=== PATIENT | female | born 1930 | race American Indian/Alaskan Native ===

== ENCOUNTER 2018-11-27 11:47 | Inpatient (IN) | payer MEDICARE ==
--- NOTE | 2018-11-27 12:07 | Emergency Department Report ---
Blank Doc - Documentation Documentation: This is a 88 y.o. female that presents with SOB for a few days. PMH NSTEMI, H TN, DVT, and anemia. Ordered EKG, labs, and CXR. Main side for further evaluation.
[2018-11-27 12:35] LABS: Basophils # (Auto) 0.1 K/mm3 (0.0-0.1); Basophils % (Auto) 0.6 % (0.0-1.8); Eosinophils % (Auto) 0.3 % (0.0-4.3); Hematocrit 34.8 % (30.3-42.9); Hemoglobin 11.9 gm/dl (10.1-14.3); Lymphocytes # (Auto) 1.1 K/mm3 (1.2-5.4); Lymphocytes % (Auto) 10.9 % (13.4-35.0); Mean Corpuscular HGB Conc 34 % (30-34); Mean Corpuscular Volume 100 fl (79-97); Monocytes # (Auto) 1.1 K/mm3 (0.0-0.8); Monocytes % (Auto) 11.4 % (0.0-7.3); Red Blood Count 3.49 M/mm3 (3.65-5.03); Red Cell Distribution Width 13.5 % (13.2-15.2)
[2018-11-27 12:57] LABS: BUN/Creatinine Ratio 14; Blood Urea Nitrogen 13 mg/dL (7-17); Calcium 8.8 mg/dL (8.4-10.2); Hemolysis Index 38
--- NOTE | 2018-11-27 13:28 | XRay Report ---
CHEST XRAY, 2 VIEWS: History: Shortness of breath. Findings: There is mild cardiomegaly. Pulmonary vessels are within normal limits. The lungs are clear and fully expanded. No infiltrate, pleural effusion or pneumothorax. The bony structures are mildly demineralized but grossly intact. IMPRESSION: Mild cardiomegaly.
[2018-11-27] MEDS ORDERED: NACL 0.9% 500 ML 500 ML IV ONE (14:40)
[2018-11-27] MEDS ORDERED: MAXIPIME/NS 1 GM/100 ML 1 GM/100 ML BAG IV ONE (14:42)
--- NOTE | 2018-11-27 14:49 | Emergency Department Report ---
ED General Adult HPI - General Chief complaint: Dyspnea/Respdistress Stated complaint: SOB Time Seen by Provider: 11/27/18 12:06 Source: patient, family Mode of arrival: Ambulatory Limitations: No Limitations - History of Present Illness Initial comments: Patient presents to the ED from her PCP for SOB that started 2 days ago. The patient denies any pain. Patient does complain of a cough. She denies chest pain, abdominal pain, headache. Patient states she's never had shortness of breath before -: Sudden Radiation: non-radiation Severity scale (0 -10): 0 Consistency: constant Improves with: none Worsens with: none Associated Symptoms: denies other symptoms Treatments Prior to Arrival: none - Related Data Home Medications Medication Instructions Recorded Confirmed Last Taken Omeprazole 1 cap PO DAILY 08/04/14 08/07/14 08/06/14 10:00 Previous Rx's Medication Instructions Recorded Last Taken Type Aspirin [Aspirin TAB] 325 mg PO QDAY #30 tablet 04/08/15 Unknown Rx AtorvaSTATin [Lipitor] 20 mg PO QHS #30 tablet 04/08/15 Unknown Rx Citalopram [celeXA] 10 mg PO DAILY #30 tablet 04/08/15 Unknown Rx Clopidogrel [Plavix] 75 mg PO QDAY #30 tablet 04/08/15 Unknown Rx Lisinopril [Zestril TAB] 20 mg PO QDAY #30 tablet 04/08/15 Unknown Rx Metoprolol [Lopressor TAB] 25 mg PO BID #60 tablet 04/08/15 Unknown Rx Allergies Allergy/AdvReac Type Severity Reaction Status Date / Time No Known Allergies Allergy Verified 08/04/14 12:40 ED Review of Systems ROS: Stated complaint: SOB Other details as noted in HPI Comment: All other systems reviewed and negative Constitutional: denies: chills, fever Eyes: denies: eye pain, eye discharge, vision change ENT: denies: ear pain, throat pain Respiratory: shortness of breath. denies: cough, wheezing Cardiovascular: denies: chest pain, palpitations Endocrine: no symptoms reported Gastrointestinal: denies: abdominal pain, nausea, diarrhea Genitourinary: denies: urgency, dysuria, discharge Musculoskeletal: denies: back pain, joint swelling, arthralgia Skin: denies: rash, lesions Neurological: denies: headache, weakness, paresthesias Psychiatric: denies: anxiety, depression Hematological/Lymphatic: denies: easy bleeding, easy bruising ED Past Medical Hx - Past Medical History Hx Hypertension: Yes (40YRS, took lisinipril and maxzide this am) Hx Heart Attack/AMI: No Hx GERD: Yes Hx Renal Disease: No Hx Arthritis: Yes Hx Seizures: No Hx Asthma: No Hx COPD: No Hx Tuberculosis: No Hx HIV: No - Social History Smoking Status: Never Smoker Substance Use Type: None - Medications Home Medications: Home Medications Medication Instructions Recorded Confirmed Last Taken Type Omeprazole 1 cap PO DAILY 08/04/14 08/07/14 08/06/14 10:00 History Aspirin [Aspirin TAB] 325 mg PO QDAY #30 tablet 04/08/15 Unknown Rx AtorvaSTATin [Lipitor] 20 mg PO QHS #30 tablet 04/08/15 Unknown Rx Citalopram [celeXA] 10 mg PO DAILY #30 tablet 04/08/15 Unknown Rx Clopidogrel [Plavix] 75 mg PO QDAY #30 tablet 04/08/15 Unknown Rx Lisinopril [Zestril TAB] 20 mg PO QDAY #30 tablet 04/08/15 Unknown Rx Metoprolol [Lopressor TAB] 25 mg PO BID #60 tablet 04/08/15 Unknown Rx ED Physical Exam - General Limitations: No Limitations General appearance: alert, in no apparent distress - Head Head exam: Present: atraumatic, normocephalic - Eye Eye exam: Present: normal appearance, PERRL, EOMI - ENT ENT exam: Present: mucous membranes moist - Neck Neck exam: Present: normal inspection - Respiratory Respiratory exam: Present: normal lung sounds bilaterally. Absent: respiratory distress, wheezes, rales, rhonchi - Cardiovascular Cardiovascular Exam: Present: normal rhythm, tachycardia. Absent: systolic murmur, diastolic murmur, rubs, gallop - GI/Abdominal GI/Abdominal exam: Present: soft, normal bowel sounds. Absent: distended, tenderness - Extremities Exam Extremities exam: Present: normal inspection - Back Exam Back exam: Present: normal inspection - Neurological Exam Neurological exam: Present: alert, oriented X3, CN II-XII intact. Absent: motor sensory deficit - Psychiatric Psychiatric exam: Present: normal affect, normal mood - Skin Skin exam: Present: warm, dry, intact, normal color. Absent: rash ED Course Vital Signs 03/02/1011/27/18 11/27/18 12:06 13:50 16:37 Temperature 98.7 F 102.5 F H 101.2 F H Pulse Rate 93 H 108 H Respiratory 24 29 H Rate Blood Pressure 146/67 Blood Pressure 188/74 [Left] O2 Sat by Pulse 95 100 Oximetry ED Medical Decision Making - Lab Data Result diagrams: 11/27/18 12:22 11/27/18 12:22 Lab Results 11/27/18 11/27/18 11/27/18 Range/Units 12:22 12:22 14:46 WBC 10.0 (4.5-11.0) K/mm3 RBC 3.49 L (3.65-5.03) M/mm3 Hgb 11.9 (10.1-14.3) gm/dl Hct 34.8 (30.3-42.9) % MCV 100 H (79-97) fl MCH 34 H (28-32) pg MCHC 34 (30-34) % RDW 13.5 (13.2-15.2) % Plt Count 252 (140-440) K/mm3 Lymph % (Auto) 10.9 L (13.4-35.0) % [place] % (Auto) 11.4 H (0.0-7.3) % Eos % (Auto) 0.3 (0.0-4.3) % Baso % (Auto) 0.6 (0.0-1.8) % Lymph # 1.1 L (1.2-5.4) K/mm3 [place] # 1.1 H (0.0-0.8) K/mm3 Eos # 0.0 (0.0-0.4) K/mm3 Baso # 0.1 (0.0-0.1) K/mm3 Seg Neutrophils % 76.8 H (40.0-70.0) % Seg Neutrophils # 7.7 (1.8-7.7) K/mm3 Sodium 141 (137-145) mmol/L Potassium 3.5 L (3.6-5.0) mmol/L Chloride 98.9 (98-107) mmol/L Carbon Dioxide 26 (22-30) mmol/L Anion Gap 20 mmol/L BUN 13 (7-17) mg/dL Creatinine 0.9 (0.7-1.2) mg/dL Estimated GFR > 60 ml/min BUN/Creatinine Ratio 14 % Glucose 112 H (65-100) mg/dL Lactic Acid 1.20 (0.7-2.0) mmol/L Calcium 8.8 (8.4-10.2) mg/dL Total Bilirubin (0.1-1.2) mg/dL Direct Bilirubin (0-0.2) mg/dL Indirect Bilirubin mg/dL AST (5-40) units/L ALT (7-56) units/L Alkaline Phosphatase (35-129) units/L Troponin T (0.00-0.029) ng/mL NT-Pro-B Natriuret Pep (0-900) pg/mL Total Protein (6.3-8.2) g/dL Albumin (3.9-5) g/dL Albumin/Globulin Ratio % Lipase (13-60) units/L /02/10 Range/Units 15:12 WBC (4.5-11.0) K/mm3 RBC (3.65-5.03) M/mm3 Hgb (10.1-14.3) gm/dl Hct (30.3-42.9) % MCV (79-97) fl MCH (28-32) pg MCHC (30-34) % RDW (13.2-15.2) % Plt Count (140-440) K/mm3 Lymph % (Auto) (13.4-35.0) % [place] % (Auto) (0.0-7.3) % Eos % (Auto) (0.0-4.3) % Baso % (Auto) (0.0-1.8) % Lymph # (1.2-5.4) K/mm3 [place] # (0.0-0.8) K/mm3 Eos # (0.0-0.4) K/mm3 Baso # (0.0-0.1) K/mm3 Seg Neutrophils % (40.0-70.0) % Seg Neutrophils # (1.8-7.7) K/mm3 Sodium (137-145) mmol/L Potassium (3.6-5.0) mmol/L Chloride (98-107) mmol/L Carbon Dioxide (22-30) mmol/L Anion Gap mmol/L BUN (7-17) mg/dL Creatinine (0.7-1.2) mg/dL Estimated GFR ml/min BUN/Creatinine Ratio % Glucose (65-100) mg/dL Lactic Acid (0.7-2.0) mmol/L Calcium (8.4-10.2) mg/dL Total Bilirubin 0.40 (0.1-1.2) mg/dL Direct Bilirubin < 0.2 (0-0.2) mg/dL Indirect Bilirubin 0.2 mg/dL AST 29 (5-40) units/L ALT 16 (7-56) units/L Alkaline Phosphatase 69 (35-129) units/L Troponin T < 0.010 (0.00-0.029) ng/mL NT-Pro-B Natriuret Pep 3120 H (0-900) pg/mL Total Protein 8.3 H (6.3-8.2) g/dL Albumin 4.2 (3.9-5) g/dL Albumin/Globulin Ratio 1.0 % Lipase 22 (13-60) units/L - EKG Data -: EKG Interpreted by Me EKG shows normal: sinus rhythm Rate: tachycardia - Radiology Data Radiology results: report reviewed - Medical Decision Making Patient states she was recently started on Lasix Discussed results with patient and plan of care Critical Care Time: Yes Critical care time in (mins) excluding proc time.: 45 Critical care attestation.: If time is entered above; I have spent that time in minutes in the direct care o f this critically ill patient, excluding procedure time. ED Disposition Clinical Impression: Dyspnea, CHF (congestive heart failure) Disposition: OP ADMIT IP TO THIS HOSP Is pt being admited?: Yes Does the pt Need Aspirin: Yes Condition: Stable Referrals: DA ORTIZ MD [Primary Care Provider] - 3-5 Days
[2018-11-27] MEDS ORDERED: TYLENOL PO ONE (14:50)
[2018-11-27 14:51] LABS: Platelet Count 252 K/mm3 (140-440)
[2018-11-27] MEDS ORDERED: TYLENOL ONE (14:51)
[2018-11-27 15:52] LABS: Alanine Aminotransferase 16 units/L (7-56); Albumin 4.2 g/dL (3.9-5); Bilirubin,Direct < 0.2 mg/dL (0-0.2)
[2018-11-27] MEDS ORDERED: LASIX IV ONE (17:01)
[2018-11-27] MEDS ORDERED: SODIUM CHLORIDE FLUSH SYRINGE 10 ML IV PRN (17:05)
[2018-11-27] MEDS ORDERED: PROVENTIL IH PRN (17:05)
[2018-11-27] MEDS ORDERED: ZOFRAN IV PRN (17:05)
--- NOTE | 2018-11-27 17:05 | History and Physical Report ---
History of Present Illness Chief complaint: Im short of breath History of present illness: 88 YO Female with Obesity, HTN, GERD, OA presents to ED for evaluation. Pt states that she has experienced shortness of breath over the past 2 days with persistent symptoms over the same time frame. Pt also acknowledges decreased exercise tolerance, Orthopnea/PND, dypsnea on exertion. Pt was seen by her PCP today was wa found to have pulse oximetry of 88% while on supplemental oxygen. Pt instructed to seek further care at [facility]. Pt transported to [facility] by family. Pt seen and evaluated in ED and found to have CHF, Acute Respiratory Failure, and SIRS. Pt found to have QSOFA score of 1. Pt admitted to telemetry, and initiated on empiric antibiotic therapy and initiated on CHF protocol. Cardiology consulted in ED. Pt denies fever, chills, CP, Palpitations, NVD, Trauma, Hemoptysis, BPBPR, prolonged travel/immobility, individual/family history of DVT/PE/Blood Clotting Disorders, Productive cough, or recent ill contacts. QSO FA Score:1 Past History Past Medical History: arthritis, GERD, hypertension, other (Obesity) Past Surgical History: No surgical history, Other (reviewed) Social history: . denies: smoking, alcohol abuse, prescription drug abuse Family history: hypertension Medications and Allergies Allergies Allergy/AdvReac Type Severity Reaction Status Date / Time No Known Allergies Allergy Verified 08/04/14 12:40 Home Medications Medication Instructions Recorded Confirmed Last Taken Type Omeprazole 1 cap PO DAILY 08/04/14 08/07/14 08/06/14 10:00 History Aspirin [Aspirin TAB] 325 mg PO QDAY #30 tablet 04/08/15 Unknown Rx AtorvaSTATin [Lipitor] 20 mg PO QHS #30 tablet 04/08/15 Unknown Rx Citalopram [celeXA] 10 mg PO DAILY #30 tablet 04/08/15 Unknown Rx Clopidogrel [Plavix] 75 mg PO QDAY #30 tablet 04/08/15 Unknown Rx Lisinopril [Zestril TAB] 20 mg PO QDAY #30 tablet 04/08/15 Unknown Rx Metoprolol [Lopressor TAB] 25 mg PO BID #60 tablet 04/08/15 Unknown Rx Review of Systems Constitutional: no weight loss, no weight gain, no fever, no chills Ears, nose, mouth and throat: no ear pain, no ear discharge, no tinnitis, no decreased hearing, no nose pain Breasts: no change in shape, no swelling, no mass Cardiovascular: orthopnea, shortness of breath, dyspnea on exertion, paroxysmal nocturnal dyspnea, decreased exercise tolerance, no chest pain, no syncope Respiratory: no cough, no cough with sputum, no excessive sputum, no hemoptysis Gastrointestinal: no nausea, no vomiting, no diarrhea, no constipation Genitourinary Female: no pelvic pain, no flank pain, no menorrhagia, no dysuria Rectal: no pain, no incontinence, no bleeding Musculoskeletal: no neck stiffness, no neck pain, no shooting arm pain, no arm numbness/tingling Integumentary: no rash, no pruritis, no redness, no sores, no wounds Neurological: no paralysis, no weakness, no parathesias, no numbness, no tingling Psychiatric: no memory loss, no change in sleep habits, no sleep disturbances, no insomnia, no hypersomnia Endocrine: no cold intolerance, no heat intolerance, no polyphagia, no excessive thirst, no polydipsia, no polyuria Hematologic/Lymphatic: no easy bruising, no easy bleeding Allergic/Immunologic: no urticaria, no allergic rhinitis, no wheezing Exam - Constitutional Vitals: Temp Pulse Resp BP Pulse Ox 101.2 F H 108 H 29 H 188/74 100 11/27/18 16:37 11/27/18 13:50 11/27/18 13:50 11/27/18 13:50 11/27/18 13:50 General appearance: Present: mild distress, obese - EENT Eyes: Present: PERRL ENT: hearing intact, clear oral mucosa - Neck Neck: Present: supple, normal ROM - Respiratory Respiratory effort: normal Respiratory: bilateral: diminished, rhonchi - Cardiovascular Heart Sounds: Present: S1 & S2. Absent: rub, click - Extremities Extremity abnormal: edema Peripheral Pulses: within normal limits - Abdominal General gastrointestinal: Present: soft, non-tender, non-distended, normal bowel sounds Female genitourinary: Present: normal - Integumentary Integumentary: Present: clear, warm, dry - Musculoskeletal Musculoskeletal: gait normal, strength equal bilaterally - Psychiatric Psychiatric: appropriate mood/affect, intact judgment & insight - Neurologic Neurologic: CNII-XII intact, moves all extremities Results - Labs CBC & Chem 7: 11/27/18 12:22 11/27/18 12:22 Labs: Abnormal lab results 11/27/18 11/27/18 11/27/18 Range/Units 12:22 12:22 15:12 RBC 3.49 L (3.65-5.03) M/mm3 MCV 100 H (79-97) fl MCH 34 H (28-32) pg Lymph % (Auto) 10.9 L (13.4-35.0) % [place] % (Auto) 11.4 H (0.0-7.3) % Lymph # 1.1 L (1.2-5.4) K/mm3 [place] # 1.1 H (0.0-0.8) K/mm3 Seg Neutrophils % 76.8 H (40.0-70.0) % Potassium 3.5 L (3.6-5.0) mmol/L Glucose 112 H (65-100) mg/dL NT-Pro-B Natriuret Pep 3120 H (0-900) pg/mL Total Protein 8.3 H (6.3-8.2) g/dL Assessment and Plan - Patient Problems (1) Respiratory failure Current Visit: Yes Status: Acute Qualifiers: Chronicity: acute Respiratory failure complication: hypoxia Qualified Co de(s): J96.01 - Acute respiratory failure with hypoxia Plan to address problem: Chest x ray, pulse oximetry, D dimer, nebulizer therapy, CT Angio chest, pulse oximetry, (2) SIRS (systemic inflammatory response syndrome) Current Visit: Yes Status: Acute Plan to address problem: Empiric antibiotic therapy, influenza swab, CBC, CMP, chest x ray, urinalysis, (3) CHF (congestive heart failure) Current Visit: Yes Status: Acute Qualifiers: Heart failure type: systolic Heart failure chronicity: acute Qualified Code(s): I50.21 - Acute systolic (congestive) heart failure Plan to address problem: Admit to telemetry, afterload reduction, echo, strict I/O, daily weight, monitor uop q shift, cardiology consulted in ED. (4) Hypertension Current Visit: No Status: Chronic Qualifiers: Hypertension type: essential hypertension Qualified Code(s): I10 - Essenti al (primary) hypertension Plan to address problem: Monitor bp q shift, (5) DVT prophylaxis Current Visit: No Status: Acute Plan to address problem: SCD to BLE while in bed
[2018-11-27] MEDS ORDERED: BABY ASPIRIN PO ONE (17:06)
[2018-11-27] MEDS: LASIX IV SCH (18:12)
[2018-11-27] MEDS ORDERED: VANCOMYCIN 1,500 MG in NACL 0.9% 500 ML 500 ML IV ONE (18:30)
[2018-11-27 18:47] LABS: Bacteria,Urine 1+ /HPF (Negative); Bilirubin,Urine NEG (Negative); Blood,Urine NEG (Negative); Color,Urine Straw (Yellow); Mucus,Urine FEW /HPF; Urobilinogen,Urine < 2.0 mg/dL (<2.0)
[2018-11-27] MEDS ORDERED: BABY ASPIRIN ONE (18:53)
[2018-11-27] MEDS ORDERED: LASIX ONE (18:53)
[2018-11-27 20:37] LABS: Free T4 (Free Thyroxine) 1.34 ng/dL (0.76-1.46)
--- NOTE | 2018-11-27 22:30 | Cat Scan Report ---
PROCEDURE: CT ANGIO CHEST TECHNIQUE: Computerized tomographic angiography of the chest was performed during the IV injection o f iodinated nonionic contrast including image processing. The image data was postprocessed using 2-d imensional multiplanar reformatted (MPR) and 3-dimensional (MIP and/or volume rendered) techniques. A utomated exposure control, adjustment of mA and/or kV according to patient size, or iterative reconst ruction dose optimization techniques were utilized. HISTORY: dypsnea . COMPARISONS: None . FINDINGS: Pulmonary out flow tract, right and left main pulmonary arteries and the approximal branches: Clear, no filling defects seen to suggest pulmonary embolus. Pericardium: No evidence of pericardial effusion. Thoracic aorta: No evidence of aneurysmal dilatation or dissection. Coronary arteries: Partially calcified indicating atherosclerotic disease. Coronary artery stent may be in place. Mediastinum and hilar regions: Non specific subcentimeter lymph nodes are visualized. No pathologica lly enlarged lymph nodes or masses are identified. Lung [place]: Bands of atelectasis are visualized bilaterally. No focal infiltrates are identified. Th ere are 2 small noncalcified pulmonary nodules in the right upper lobe which are pleural-based, one m easuring 4.5 mm right upper lobe anteriorly image 39 series 2 and one located right upper lobe anteri or laterally image 56 series 2. This measures 2.7 mm. Upper abdomen: There are several low density nodules in the renal cortex of the right kidney the lar gest measuring 2.5 cm which appear to represent renal cortical cysts. No acute abnormalities are iden tified in the upper abdomen. Other: No acute bone abnormalities are identified. IMPRESSION: No evidence of pulmonary embolus. Bands of atelectasis are visualized bilaterally. There are 2 small nonspecific peripheral noncalcified pulmonary nodules right upper lobe as described above. The largest only measures 4.5 mm. Consider follow-up exam in 3-6 months to ensure stability. Atherosclerosis coronary arteries. Coronary artery stent in place. Renal cortical cysts visualized right kidney. . This document is electronically signed by Nayan Menjivar MD., November 27 2018 10:28:44 PM ET
[2018-11-27] MEDS: LOPRESSOR PO SCH (22:32)
[2018-11-27] MEDS: SODIUM CHLORIDE FLUSH SYRINGE 10 ML IV SCH (22:33)
[2018-11-27] MEDS: TYLENOL PO PRN (22:33)
[2018-11-28] MEDS: LASIX IV SCH ×2 (06:57→18:50)
[2018-11-28 08:07] LABS: BUN/Creatinine Ratio 13; Blood Urea Nitrogen 10 mg/dL (7-17); Calcium 8.2 mg/dL (8.4-10.2); Hemolysis Index 8
[2018-11-28] MEDS ORDERED: K-DUR PO ONE (09:30)
[2018-11-28] MEDS ORDERED: LEVAQUIN 750MG/150ML 750 MG/150 ML BAG IV SCH (10:00)
[2018-11-28] MEDS ORDERED: OMEPRAZOLE PO SCH (10:00)
[2018-11-28] MEDS ORDERED: ZESTRIL PO SCH (10:00)
[2018-11-28] MEDS: PLAVIX PO SCH (10:26)
[2018-11-28] MEDS: LOPRESSOR PO SCH ×2 (10:26→22:49)
[2018-11-28] MEDS: ASPIRIN PO SCH (10:26)
[2018-11-28] MEDS: PROTONIX PO SCH (10:26)
[2018-11-28] MEDS: SODIUM CHLORIDE FLUSH SYRINGE 10 ML IV SCH ×2 (10:27→22:49)
[2018-11-28] MEDS: celeXA PO SCH (11:05)
[2018-11-28] MEDS: KCL 10MEQ/100ML 10 MEQ/100 ML BAG IV SCH ×3 (11:05→14:19)
[2018-11-28] MEDS: NACL 0.9% 500 ML 0 ML ONE ×2 (11:06→14:23)
--- NOTE | 2018-11-28 11:32 | Consultation ---
History of Present Illness Consult date: 11/28/18 Consult reason: congestive heart failure History of present illness: Patient is an 88 year old woman with a history of 2 vessel coronary artery d [place]. Her latest cardiac workup was a persantine thallium stress test done 11/23/18 that reports a normal myocardial perfusion scan. Patient presented with complaints of shortness of breath. A cardiac consultation was requested for CHF. Patient reports shortness of breath has been ongoing for several days associated with productive coughs followed with chest pain. Noted febrile with a temperature of 102.5. WBC is normal. Chest x-ray reports cardiomegaly but no evidence of heart failure. Chest CT scan reports nonspecific right upper lobe pulmonary nodules. No evidence of pulmonary embolus. Past History Past Medical History: arthritis, CAD, GERD, hypertension, other (PAD) Social history: . denies: smoking, alcohol abuse, prescription drug abuse Family history: hypertension Medications and Allergies Allergies Allergy/AdvReac Type Severity Reaction Status Date / Time No Known Allergies Allergy Verified 08/04/14 12:40 Home Medications Medication Instructions Recorded Confirmed Last Taken Type Omeprazole 1 cap PO DAILY 08/04/14 11/27/18 11/26/18 History Aspirin [Aspirin TAB] 325 mg PO QDAY #30 tablet 04/08/15 11/27/18 11/26/18 Rx AtorvaSTATin [Lipitor] 20 mg PO QHS #30 tablet 04/08/15 11/27/18 11/26/18 Rx Citalopram [celeXA] 10 mg PO DAILY #30 tablet 04/08/15 11/27/18 11/26/18 Rx Clopidogrel [Plavix] 75 mg PO QDAY #30 tablet 04/08/15 11/27/18 11/26/18 Rx Lisinopril [Zestril TAB] 20 mg PO QDAY #30 tablet 04/08/15 11/27/18 11/26/18 Rx Metoprolol [Lopressor TAB] 25 mg PO BID #60 tablet 04/08/15 11/27/18 11/26/18 Rx Active Meds: Active Medications Acetaminophen (Tylenol) 650 mg PO Q4H PRN PRN Reason: Pain MILD(1-3)/Fever >100.5/BULL Last Admin: 11/27/18 22:33 Dose: 650 mg Documented by: Albuterol (Proventil) 2.5 mg IH Q4HRT PRN PRN Reason: Shortness Of Breath Last Admin: 11/28/18 00:31 Dose: 2.5 mg Documented by: Aspirin (Aspirin) 325 mg PO QDAY [facility] Last Admin: 11/28/18 10:26 Dose: 325 mg Documented by: Atorvastatin Calcium (Lipitor) 20 mg PO QHS [facility] Last Admin: 11/27/18 22:32 Dose: 20 mg Documented by: Citalopram Hydrobromide (Celexa) 10 mg PO DAILY [facility] Last Admin: 11/28/18 11:05 Dose: 10 mg Documented by: Clopidogrel Bisulfate (Plavix) 75 mg PO QDAY [facility] Last Admin: 11/28/18 10:26 Dose: 75 mg Documented by: Furosemide (Lasix) 40 mg IV BID@0600,1800 [facility] Last Admin: 11/28/18 06:57 Dose: 40 mg Documented by: Guaifenesin (Guaifenesin Dm Syrup) 5 ml PO Q4H PRN PRN Reason: Cough Last Admin: 11/28/18 00:10 Dose: 5 ml Documented by: Potassium Chloride (Kcl 10meq/100ml) 10 meq in 100 mls @ 100 mls/hr IV Q1H [facility] Stop: 11/28/18 12:29 Last Admin: 11/28/18 11:05 Dose: 100 mls/hr Documented by: Levofloxacin/Dextrose (Levaquin 750mg/150ml) 750 mg in 150 mls @ 100 mls/hr IV Q48HR [facility]; Protocol Lisinopril (Zestril) 20 mg PO QDAY [facility] Last Admin: 11/28/18 10:26 Dose: 20 mg Documented by: Metoprolol Tartrate (Lopressor) 25 mg PO BID [facility] Last Admin: 11/28/18 10:26 Dose: 25 mg Documented by: Ondansetron HCl (Zofran) 4 mg IV Q8H PRN PRN Reason: Nausea And Vomiting Pantoprazole Sodium (Protonix) 40 mg PO DAILY [facility] Last Admin: 11/28/18 10:26 Dose: 40 mg Documented by: Sodium Chloride (Sodium Chloride Flush Syringe 10 Ml) 10 ml IV BID [facility] Last Admin: 11/28/18 10:27 Dose: 10 ml Documented by: Sodium Chloride (Sodium Chloride Flush Syringe 10 Ml) 10 ml IV PRN PRN PRN Reason: LINE FLUSH Physical Examination Vital Signs Temp Pulse Resp BP Pulse Ox 98.7 F 93 H 24 146/67 95 11/27/18 12:06 11/27/18 12:06 11/27/18 12:06 11/27/18 12:06 11/27/18 12:06 General appearance: no acute distress HEENT: Positive: PERRL Neck: Positive: trachea midline Cardiac: Positive: Irregularly Regular Lungs: Positive: Decreased Breath Sounds Neuro: Positive: Grossly Intact Results 11/27/18 12:22 11/28/18 07:13 Cardiac Enzymes 11/27/18 Range/Units 15:12 AST 29 (5-40) units/L CBC 11/27/18 Range/Units 12:22 WBC 10.0 (4.5-11.0) K/mm3 RBC 3.49 L (3.65-5.03) M/mm3 Hgb 11.9 (10.1-14.3) gm/dl Hct 34.8 (30.3-42.9) % Plt Count 252 (140-440) K/mm3 Lymph # 1.1 L (1.2-5.4) K/mm3 [place] # 1.1 H (0.0-0.8) K/mm3 Eos # 0.0 (0.0-0.4) K/mm3 Baso # 0.1 (0.0-0.1) K/mm3 Comprehensive Metabolic Panel 11/27/18 11/27/18 11/28/18 Range/Units 12:22 15:12 07:13 Sodium 141 139 (137-145) mmol/L Potassium 3.5 L 2.9 L* (3.6-5.0) mmol/L Chloride 98.9 91.9 L (98-107) mmol/L Carbon Dioxide 26 28 (22-30) mmol/L BUN 13 10 (7-17) mg/dL Creatinine 0.9 0.8 (0.7-1.2) mg/dL Glucose 112 H 83 (65-100) mg/dL Calcium 8.8 8.2 L (8.4-10.2) mg/dL Direct Bilirubin < 0.2 (0-0.2) mg/dL Indirect Bilirubin 0.2 mg/dL AST 29 (5-40) units/L ALT 16 (7-56) units/L Alkaline Phosphatase 69 (35-129) units/L Total Protein 8.3 H (6.3-8.2) g/dL Albumin 4.2 (3.9-5) g/dL Assessment and Plan Shortness of breath Chest CT scan reports nonspecific right upper lobe pulmonary nodules. No evidence of pulmonary embolus. Fever Hypokalemia Hx of CAD Hypertension
--- NOTE | 2018-11-28 15:13 | Progress Note ---
Assessment and Plan /Acute Respiratory failure, now resolved no infiltrates on CXR, CTA negative for PE likely from severe cough associated with lisinopril wait for rapid infuenza test / SIRS (systemic inflammatory response syndrome) Empiric antibiotic therapy, influenza swab, follow blood cx, negative UA / CAD h/o - has normal MPI with preserved EF on 11/23/2018 conservative workup per cardiology /Hypertension Monitor bp q shift, / DVT prophylaxis SCD to BLE while in bed Brief history: Patient is an 88 year old woman with a history of 2 vessel coronary artery disease, latest cardiac workup was a persantine thallium stress test done 11/23/18 that reports a normal myocardial perfusion scan presented with complaints of s hortness of breath. A cardiac consultation was requested for CHF. Patient reports shortness of breath has been ongoing for several days associated with productive coughs followed with chest pain. Noted febrile with a temperature of 102.5. WBC is normal. Chest x-ray reports cardiomegaly but no evidence of heart failure. Chest CT scan reports nonspecific right upper lobe pulmonary nodules. No evidence of pulmonary embolus. Subjective Date of service: 11/28/18 Interval history: Pt seen and examined states cough improved, spiking fever denies chest pain Objective - Constitutional Vitals: Vital Signs - 12hr 11/28/18 11/28/18 11/28/18 03:19 06:00 08:48 Temperature 99.4 F 102.5 F H Pulse Rate 77 102 H Respiratory 20 20 Rate Blood Pressure 143/55 171/78 O2 Sat by Pulse 90 Oximetry 11/28/18 11/28/18 10:26 10:51 Temperature Pulse Rate 80 Respiratory Rate Blood Pressure 171/78 O2 Sat by Pulse 90 Oximetry General appearance: Present: mild distress - EENT Eyes: PERRL, EOM intact ENT: hearing intact, clear oral mucosa Ears: bilateral: normal - Neck Neck: supple, normal ROM - Respiratory Respiratory effort: normal Respiratory: bilateral: CTA - Cardiovascular Rhythm: regular Heart Sounds: Present: S1 & S2. Absent: gallop, rub Extremities: pulses intact, No edema, normal color, Full ROM - Gastrointestinal General gastrointestinal: Present: soft, non-tender, non-distended, normal bowel sounds - Integumentary Integumentary: clear, warm, dry - Musculoskeletal Musculoskeletal: 1, strength equal bilaterally - Neurologic Neurologic: moves all extremities - Psychiatric Psychiatric: memory intact, appropriate mood/affect, intact judgment & insight - Labs CBC & Chem 7: 11/27/18 12:22 11/29/18 07:09 Labs: Abnormal lab results 11/27/18 11/27/18 11/28/18 Range/Units 15:12 19:39 07:13 D-Dimer 619.88 H (0-234) ng/mlDDU Potassium 2.9 L* (3.6-5.0) mmol/L Chloride 91.9 L (98-107) mmol/L Calcium 8.2 L (8.4-10.2) mg/dL NT-Pro-B Natriuret Pep 3120 H (0-900) pg/mL Total Protein 8.3 H (6.3-8.2) g/dL
[2018-11-29] MEDS: TYLENOL PO PRN (06:17)
[2018-11-29] MEDS: LASIX IV SCH ×2 (06:34→18:50)
[2018-11-29 08:06] LABS: Calcium 7.6 mg/dL (8.4-10.2)
[2018-11-29] MEDS: PROTONIX PO SCH (10:31)
[2018-11-29] MEDS: ASPIRIN PO SCH (10:31)
[2018-11-29] MEDS: COZAAR PO SCH (10:31)
[2018-11-29] MEDS: celeXA PO SCH (10:32)
[2018-11-29] MEDS: PLAVIX PO SCH (10:32)
[2018-11-29] MEDS: LOPRESSOR PO SCH ×2 (10:32→21:13)
[2018-11-29] MEDS ORDERED: K-DUR PO NR (16:00)
--- NOTE | 2018-11-29 16:09 | Progress Note ---
Assessment and Plan /Acute Respiratory failure, now resolved no infiltrates on CXR, CTA negative for PE likely from severe cough associated with lisinopril vs viral infection negative for rapid infuenza test / SIRS (systemic inflammatory response syndrome) Empiric antibiotic therapy, negative influenza swab, negative blood cx, negative UA will consult ID for persistent fever / CAD h/o - has normal MPI with preserved EF on 11/23/2018 conservative workup per cardiology /Hypertension Monitor bp q shift, / DVT prophylaxis SCD to BLE while in bed Brief history: Patient is an 88 year old woman with a history of 2 vessel coronary artery disease, latest cardiac workup was a persantine thallium stress test done 11/23/18 that reports a normal myocardial perfusion scan presented with complaints of shortness of breath. A cardiac consultation was requested for CHF. Patient reports shortness of breath has been ongoing for several days associated with productive coughs followed with chest pain. Noted febrile with a temperature of 102.5. WBC is normal. Chest x-ray reports cardiomegaly but no evidence of heart failure. Chest CT scan reports nonspecific right upper lobe pulmonary nodules. No evidence of pulmonary embolus. Physical exam: General appearance: Present: mild distress - EENT Eyes: PERRL, EOM intact ENT: hearing intact, clear oral mucosa Ears: bilateral: normal - Neck Neck: supple, normal ROM - Respiratory Respiratory effort: normal Respiratory: bilateral: CTA - Cardiovascular Rhythm: regular Heart Sounds: Present: S1 & S2. Absent: gallop, rub Extremities: pulses intact, No edema, normal color, Full ROM - Gastrointestinal General gastrointestinal: Present: soft, non-tender, non-distended, normal bowel sounds - Integumentary Integumentary: clear, warm, dry - Musculoskeletal Musculoskeletal: 1, strength equal bilaterally - Neurologic Neurologic: moves all extremities - Psychiatric Psychiatric: memory intact, appropriate mood/affect, intact judgment & insight Subjective Date of service: 11/29/18 Interval history: Pt seen and examined states cough improved, spiking fever denies chest pain Objective - Constitutional Vitals: Vital Signs - 12hr 11/29/18 11/29/18 09:08 13:13 Temperature 97.8 F 98.7 F Pulse Rate 69 54 L Respiratory 18 18 Rate Blood Pressure 112/59 109/50 O2 Sat by Pulse 100 94 Oximetry - Labs CBC & Chem 7: 11/30/18 09:43 11/30/18 09:43 Labs: Abnormal lab results 11/29/18 Range/Units 07:09 Potassium 3.3 L (3.6-5.0) mmol/L Chloride 91.8 L (98-107) mmol/L BUN 20 H (7-17) mg/dL Creatinine 1.3 H D (0.7-1.2) mg/dL Calcium 7.6 L (8.4-10.2) mg/dL
[2018-11-29] MEDS: SODIUM CHLORIDE FLUSH SYRINGE 10 ML IV SCH (21:14)
[2018-11-30] MEDS: LASIX IV SCH ×2 (06:33→17:29)
[2018-11-30] MEDS ORDERED: LEVAQUIN 750MG/150ML 750 MG/150 ML BAG IV SCH (10:00)
[2018-11-30 10:26] LABS: Hematocrit 34.6 % (30.3-42.9); Hemoglobin 11.8 gm/dl (10.1-14.3); Mean Corpuscular HGB Conc 34 % (30-34); Mean Corpuscular Volume 100 fl (79-97); Platelet Count 208 K/mm3 (140-440); Red Blood Count 3.48 M/mm3 (3.65-5.03); Red Cell Distribution Width 13.3 % (13.2-15.2)
[2018-11-30 10:46] LABS: Calcium 7.5 mg/dL (8.4-10.2)
[2018-11-30] MEDS: COZAAR PO SCH (11:33)
[2018-11-30] MEDS: ASPIRIN PO SCH (11:33)
[2018-11-30] MEDS: PROTONIX PO SCH (11:34)
[2018-11-30] MEDS: celeXA PO SCH (11:34)
[2018-11-30] MEDS: PLAVIX PO SCH (11:35)
[2018-11-30] MEDS: LEVAQUIN 750MG/150ML 750 MG/150 ML BAG IV SCH (11:36)
[2018-11-30] MEDS: SODIUM CHLORIDE FLUSH SYRINGE 10 ML IV SCH ×2 (11:47→21:17)
--- NOTE | 2018-11-30 14:29 | Consultation ---
History of Present Illness - Reason for Consult Consult date: 11/30/18 Persistent fever Requesting physician: CRISTINA RICHARD - History of Present Illness The patient is an 88-year-old female with hypertension, gastroesophageal reflux disease, coronary artery disease presented to the emergency room on 11/27/2018 with complaints of cough, fever and hypoxia. Apparently she was following up with her primary care provider due to complaints of cough going on for about a week and was told to go to the emergency room due to low oxygen. Here, she was noted to be febrile, started empirically on levofloxacin. Cardiology was consulted due to chest pain, patient apparently had a negative perfusion study in November 2018. Chest x-ray did not show any obvious pneumonia. CTA of the chest showed no pulmonary embolism, showed 2 small nonspecific right upper lobe nodules. Patient currently still has some cough and chest pain when coughing. Otherwise denies any nausea, vomiting or diarrhea. Denies urinary complaints. Has been having some persistent temperatures, MAXIMUM TEMPERATURE yesterday was 100.5F. She did take the influenza vaccine last year. Review of Systems: General: no fevers,chills or rigors HEENT: no new visual disturbance Respiratory: + for cough, shortness of breath Cardiovascular: No chest pain except when coughing, no syncope Gastrointestinal: No nausea, vomiting or diarrhea Genitourinary: No dysuria or hematuria Musculoskeletal: No new or worsening neck pain or back pain Neurologic: No headaches, seizures Hematologic: No easy bruising or bleeding Endocrine: No night sweats or acute weight loss Skin: negative for rash, jaundice Psychiatric: No suicidal or homicidal ideation Past History Past Medical History: arthritis, CAD, GERD, hypertension, other (PAD) Past Surgical History: No surgical history, Other (reviewed) Social history: . denies: smoking, alcohol abuse, prescription drug abuse Family history: hypertension Medications and Allergies Allergies Allergy/AdvReac Type Severity Reaction Status Date / Time No Known Allergies Allergy Verified 08/04/14 12:40 Home Medications Medication Instructions Recorded Confirmed Last Taken Type Omeprazole 1 cap PO DAILY 08/04/14 11/27/18 11/26/18 History Aspirin [Aspirin TAB] 325 mg PO QDAY #30 tablet 04/08/15 11/27/18 11/26/18 Rx AtorvaSTATin [Lipitor] 20 mg PO QHS #30 tablet 04/08/15 11/27/18 11/26/18 Rx Citalopram [celeXA] 10 mg PO DAILY #30 tablet 04/08/15 11/27/18 11/26/18 Rx Clopidogrel [Plavix] 75 mg PO QDAY #30 tablet 04/08/15 11/27/18 11/26/18 Rx Lisinopril [Zestril TAB] 20 mg PO QDAY #30 tablet 04/08/15 11/27/18 11/26/18 Rx Metoprolol [Lopressor TAB] 25 mg PO BID #60 tablet 04/08/15 11/27/18 11/26/18 Rx Active Meds: Active Medications Acetaminophen (Tylenol) 650 mg PO Q4H PRN PRN Reason: Pain MILD(1-3)/Fever >100.5/BULL Last Admin: 11/29/18 06:17 Dose: 650 mg Documented by: Albuterol (Proventil) 2.5 mg IH Q4HRT PRN PRN Reason: Shortness Of Breath Last Admin: 11/28/18 00:31 Dose: 2.5 mg Documented by: Aspirin (Aspirin) 325 mg PO QDAY [facility] Last Admin: 11/30/18 11:33 Dose: 325 mg Documented by: Atorvastatin Calcium (Lipitor) 20 mg PO QHS [facility] Last Admin: 11/29/18 21:14 Dose: 20 mg Documented by: Citalopram Hydrobromide (Celexa) 10 mg PO DAILY [facility] Last Admin: 11/30/18 11:34 Dose: 10 mg Documented by: Clopidogrel Bisulfate (Plavix) 75 mg PO QDAY [facility] Last Admin: 11/30/18 11:35 Dose: 75 mg Documented by: Furosemide (Lasix) 40 mg IV BID@0600,1800 [facility] Last Admin: 11/30/18 06:33 Dose: 40 mg Documented by: Guaifenesin (Guaifenesin Dm Syrup) 5 ml PO Q4H PRN PRN Reason: Cough Last Admin: 11/30/18 11:49 Dose: 5 ml Documented by: Levofloxacin/Dextrose (Levaquin 750mg/150ml) 750 mg in 150 mls @ 100 mls/hr IV Q48HR [facility]; Protocol Last Admin: 11/30/18 11:36 Dose: 100 mls/hr Documented by: Losartan Potassium (Cozaar) 50 mg PO QDAY [facility] Last Admin: 11/30/18 11:33 Dose: 50 mg Documented by: Metoprolol Tartrate (Lopressor) 25 mg PO BID [facility] Last Admin: 11/30/18 11:33 Dose: 25 mg Documented by: Ondansetron HCl (Zofran) 4 mg IV Q8H PRN PRN Reason: Nausea And Vomiting Pantoprazole Sodium (Protonix) 40 mg PO DAILY [facility] Last Admin: 11/30/18 11:34 Dose: 40 mg Documented by: Sodium Chloride (Sodium Chloride Flush Syringe 10 Ml) 10 ml IV BID [facility] Last Admin: 11/30/18 11:47 Dose: 10 ml Documented by: Sodium Chloride (Sodium Chloride Flush Syringe 10 Ml) 10 ml IV PRN PRN PRN Reason: LINE FLUSH Last Admin: 11/30/18 11:32 Dose: 10 ml Documented by: Physical Examination - Physical Exam Narrative exam: Physical Exam: Constitutional: Alert, cooperative. No acute distress Head, Ears, Nose: Normocephalic, atraumatic. External ears, nose normal Eyes: Conjunctivae/corneas clear. No icterus. No ptosis. Neck: Supple, no meningeal signs Oral: dentition fair, no thrush. no oropharyngeal exudates Cardiovascular: S1, S2 normal. Respiratory: Good air entry, clear to auscultation bilaterally GI: Soft, non-tender; bowel sounds normal. No peritoneal signs Musculoskeletal: No pedal edema, no cyanosis. Skin: No rash or abscess Hem/Lymphatic: No palpable cervical or supraclavicular nodes. No lymphangitis Psych: Mood ok. Affect normal Neurological: Awake, alert, oriented. No gross abnormality - Constitutional Vitals: Vital Signs Temp Pulse Resp BP Pulse Ox 99.0 F 71 20 105/48 95 11/30/18 08:38 11/30/18 11:33 11/30/18 08:38 11/30/18 11:33 11/30/18 08:38 Temperature -Last 24 Hours Temperature 99.0 F Temperature 99.8 F Temperature 100.5 F Temperature 99.7 F Temperature 98.6 F Results - Labs CBC & Chem 7: 11/30/18 09:43 11/30/18 09:43 Labs: Abnormal lab results 11/30/18 11/30/18 Range/Units 09:43 09:43 WBC 3.8 L (4.5-11.0) K/mm3 RBC 3.48 L (3.65-5.03) M/mm3 MCV 100 H (79-97) fl MCH 34 H (28-32) pg Sodium 136 L (137-145) mmol/L Potassium 3.3 L (3.6-5.0) mmol/L Chloride 90.9 L (98-107) mmol/L BUN 25 H (7-17) mg/dL Glucose 133 H (65-100) mg/dL Calcium 7.5 L (8.4-10.2) mg/dL - Imaging and Cardiology Chest x-ray: report reviewed, image reviewed (no pneumonia seen) CT scan - chest: report reviewed, image reviewed (no PE. no pneumonia seen. ) Assessment and Plan Cultures: 11/27/2018 blood culture: Negative at 48 hours 11/27/2018 urine culture: No significant growth 11/28/2018 Rapid influenza test: Negative A/P: 88-year-old female with hypertension, gastroesophageal reflux disease, coronary artery disease. Admitted with: 1) Cough, fever and shortness of breath causing acute respiratory failure: concerning for possible pneumonia however chest x-ray and CT chest without any evidence of rebecca infiltrates. Low-grade fevers present but trend seems to be improving. No leukocytosis. WBC from today show some leukopenia, suggesting a possible viral infection. Blood cultures negative. UA and urine culture not consistent with urinary tract infection. 2) SIRS: secondary to above. Improving. Recs: DC levofloxacin after 1 more day to cover atypicals If afebrile overnight, okay to discharge from ID standpoint Influenza PCR ordered D/W Dr. Richard. MD [facility] C: [phone] O: [phone] F: [phone]
[2018-11-30] MEDS ORDERED: K-DUR PO ONE (14:56)
--- NOTE | 2018-11-30 14:58 | Progress Note ---
Assessment and Plan /Acute Respiratory failure, now resolved no infiltrates on CXR, CTA negative for PE likely from severe cough associated with lisinopril vs viral infection negative for rapid infuenza test / SIRS (systemic inflammatory response syndrome) Empiric antibiotic therapy, negative influenza swab, negative blood cx, negative UA Consulted ID for persistent fever - possible viral infection / CAD h/o - has normal MPI with preserved EF on 11/23/2018 conservative workup per cardiology /Pulmonary nodule, repeat CT chest in 3-6 months outpt /Hypertension Monitor bp q shift, / DVT prophylaxis SCD to BLE while in bed Brief history: Patient is an 88 year old woman with a history of 2 vessel coronary artery disease, latest cardiac workup was a persantine thallium stress test done 11/23/18 that reports a normal myocardial perfusion scan presented with complaints of shortness of breath. A cardiac consultation was requested for CHF. Patient reports shortness of breath has been ongoing for several days associated with productive coughs followed with chest pain. Noted febrile with a temperature of 102.5. WBC is normal. Chest x-ray reports cardiomegaly but no evidence of heart failure. Chest CT scan reports nonspecific right upper lobe pulmonary nodules. No evidence of pulmonary embolus. Physical exam: General appearance: Present: mild distress - EENT Eyes: PERRL, EOM intact ENT: hearing intact, clear oral mucosa Ears: bilateral: normal - Neck Neck: supple, normal ROM - Respiratory Respiratory effort: normal Respiratory: bilateral: CTA - Cardiovascular Rhythm: regular Heart Sounds: Present: S1 & S2. Absent: gallop, rub Extremities: pulses intact, No edema, normal color, Full ROM - Gastrointestinal General gastrointestinal: Present: soft, non-tender, non-distended, normal bowel sounds - Integumentary Integumentary: clear, warm, dry - Musculoskeletal Musculoskeletal: 1, strength equal bilaterally - Neurologic Neurologic: moves all extremities - Psychiatric Psychiatric: memory intact, appropriate mood/affect, intact judgment & insight Subjective Date of service: 11/30/18 Interval history: Pt seen and examined states cough improved, spiking fever denies chest pain Objective - Constitutional Vitals: Vital Signs - 12hr 11/30/18 11/30/18 11/30/18 04:41 08:38 11:33 Temperature 99.8 F H 99.0 F Pulse Rate 67 71 71 Respiratory 20 20 Rate Blood Pressure 131/51 105/48 105/48 O2 Sat by Pulse 96 95 Oximetry - Labs CBC & Chem 7: 12/01/18 05:36 12/01/18 05:36 Labs: Abnormal lab results 11/30/18 11/30/18 Range/Units 09:43 09:43 WBC 3.8 L (4.5-11.0) K/mm3 RBC 3.48 L (3.65-5.03) M/mm3 MCV 100 H (79-97) fl MCH 34 H (28-32) pg Sodium 136 L (137-145) mmol/L Potassium 3.3 L (3.6-5.0) mmol/L Chloride 90.9 L (98-107) mmol/L BUN 25 H (7-17) mg/dL Glucose 133 H (65-100) mg/dL Calcium 7.5 L (8.4-10.2) mg/dL
[2018-11-30] MEDS: LOPRESSOR PO SCH ×2 (17:30→21:16)
[2018-12-01] MEDS: LASIX IV SCH (05:56)
[2018-12-01 05:58] LABS: Hematocrit 33.6 % (30.3-42.9); Hemoglobin 11.5 gm/dl (10.1-14.3); Mean Corpuscular HGB Conc 34 % (30-34); Mean Corpuscular Volume 99 fl (79-97); Platelet Count 201 K/mm3 (140-440); Red Blood Count 3.38 M/mm3 (3.65-5.03); Red Cell Distribution Width 13.4 % (13.2-15.2)
[2018-12-01 06:17] LABS: Calcium 7.4 mg/dL (8.4-10.2)
[2018-12-01 07:05] LABS: Basophils % (Manual) 0 % (0.0-1.8); Total Cells Counted 100
[2018-12-01 07:06] LABS: Platelet Estimate Consistent w Auto; RBC Morphology Normal
[2018-12-01] MEDS: COZAAR PO SCH (10:03)
[2018-12-01] MEDS: ASPIRIN PO SCH (10:31)
[2018-12-01] MEDS: PLAVIX PO SCH (10:31)
[2018-12-01] MEDS: celeXA PO SCH (10:31)
[2018-12-01] MEDS: PROTONIX PO SCH (10:33)
[2018-12-01] MEDS: LOPRESSOR PO SCH ×2 (10:34→21:32)
--- NOTE | 2018-12-01 13:20 | Progress Note ---
Assessment and Plan /GRAY, likely from lasix Cr was normal on admission will stop lasix and will cont to monitor /Acute Respiratory failure, now resolved no infiltrates on CXR, CTA negative for PE likely from viral infection associated severe cough with fever negative for rapid infuenza test, PCR for influenza ordered / SIRS (systemic inflammatory response syndrome) Empiric antibiotic therapy, negative influenza swab, negative blood cx, negative UA Consulted ID for persistent fever - possible viral infection / CAD h/o - has normal MPI with preserved EF on 11/23/2018 conservative workup per cardiology /Pulmonary nodule, repeat CT chest in 3-6 months outpt /Hypertension Monitor bp q shift, / DVT prophylaxis SCD to BLE while in bed Brief history: Patient is an 88 year old woman with a history of 2 vessel coronary artery disease, latest cardiac workup was a persantine thallium stress test done 11/23/18 that reports a normal myocardial perfusion scan presented with complaints of shortness of breath. A cardiac consultation was requested for CHF. Patient reports shortness of breath has been ongoing for several days associated with productive coughs followed with chest pain. Noted febrile with a temperature of 102.5. WBC is normal. Chest x-ray reports cardiomegaly but no evidence of heart failure. Chest CT scan reports nonspecific right upper lobe pulmonary nodules. No evidence of pulmonary embolus. Physical exam: General appearance: Present: mild distress - EENT Eyes: PERRL, EOM intact ENT: hearing intact, clear oral mucosa Ears: bilateral: normal - Neck Neck: supple, normal ROM - Respiratory Respiratory effort: normal Respiratory: bilateral: CTA - Cardiovascular Rhythm: regular Heart Sounds: Present: S1 & S2. Absent: gallop, rub Extremities: pulses intact, No edema, normal color, Full ROM - Gastrointestinal General gastrointestinal: Present: soft, non-tender, non-distended, normal bowel sounds - Integumentary Integumentary: clear, warm, dry - Musculoskeletal Musculoskeletal: 1, strength equal bilaterally - Neurologic Neurologic: moves all extremities - Psychiatric Psychiatric: memory intact, appropriate mood/affect, intact judgment & insight Subjective Date of service: 12/01/18 Interval history: Pt seen and examined denies chest pain, afebrile Cr elevated Objective - Constitutional Vitals: Vital Signs - 12hr 12/01/18 12/01/18 12/01/18 05:05 06:00 07:48 Temperature 97.0 F L 99.4 F Pulse Rate 57 L 62 63 Respiratory 18 18 Rate Blood Pressure 113/44 106/48 O2 Sat by Pulse 97 100 Oximetry 12/01/18 12/01/18 10:34 11:20 Temperature 99.0 F Pulse Rate 63 63 Respiratory 18 Rate Blood Pressure 106/48 111/53 O2 Sat by Pulse 100 Oximetry - Labs CBC & Chem 7: 12/01/18 05:36 12/02/18 05:50 Labs: Abnormal lab results 12/01/18 12/01/18 Range/Units 05:36 05:36 WBC 3.5 L (4.5-11.0) K/mm3 RBC 3.38 L (3.65-5.03) M/mm3 MCV 99 H (79-97) fl MCH 34 H (28-32) pg Monocytes % (Manual) 11.0 H (0.0-7.3) % Lymphocytes # (Manual) 1.1 L (1.2-5.4) K/mm3 Sodium 136 L (137-145) mmol/L Chloride 91.6 L (98-107) mmol/L Carbon Dioxide 31 H (22-30) mmol/L BUN 32 H (7-17) mg/dL Creatinine 1.6 H (0.7-1.2) mg/dL Calcium 7.4 L (8.4-10.2) mg/dL
[2018-12-01] MEDS: SODIUM CHLORIDE FLUSH SYRINGE 10 ML IV SCH ×2 (18:03→21:33)
[2018-12-02 06:36] LABS: Calcium 7.4 mg/dL (8.4-10.2)
[2018-12-02] MEDS: PLAVIX PO SCH (10:03)
[2018-12-02] MEDS: ASPIRIN PO SCH (10:03)
[2018-12-02] MEDS: LOPRESSOR PO SCH ×2 (10:05→21:14)
[2018-12-02] MEDS: PROTONIX PO SCH (10:05)
[2018-12-02] MEDS: LEVAQUIN 750MG/150ML 750 MG/150 ML BAG IV SCH (10:06)
[2018-12-02] MEDS: SODIUM CHLORIDE FLUSH SYRINGE 10 ML IV SCH ×3 (10:12→21:14)
[2018-12-02] MEDS: COZAAR PO SCH (10:18)
[2018-12-02] MEDS: celeXA PO SCH (10:18)
--- NOTE | 2018-12-02 11:37 | Progress Note ---
Assessment and Plan /GRAY, likely from lasix Cr was normal on admission will stop lasix and will cont to monitor will give low volume NS /Acute Respiratory failure, now resolved no infiltrates on CXR, CTA negative for PE likely from viral infection associated severe cough with fever negative for rapid infuenza test, PCR for influenza ordered / SIRS (systemic inflammatory response syndrome) Empiric antibiotic therapy, negative influenza swab, negative blood cx, negative UA Consulted ID for persistent fever - possible viral infection / CAD h/o - has normal MPI with preserved EF on 11/23/2018 conservative workup per cardiology /Pulmonary nodule, repeat CT chest in 3-6 months outpt /Hypertension Monitor bp q shift, / DVT prophylaxis SCD to BLE while in bed Disposition, when renal function improves and clears by PT Brief history: Patient is an 88 year old woman with a history of 2 vessel coronary artery disease, latest cardiac workup was a persantine thallium stress test done 11/23/18 that reports a normal myocardial perfusion scan presented with complaints of shortness of breath. A cardiac consultation was requested for CHF. Patient reports shortness of breath has been ongoing for several days associated with pr oductive coughs followed with chest pain. Noted febrile with a temperature of 102.5. WBC is normal. Chest x-ray reports cardiomegaly but no evidence of heart failure. Chest CT scan reports nonspecific right upper lobe pulmonary nodules. No evidence of pulmonary embolus. Physical exam: General appearance: Present: mild distress - EENT Eyes: PERRL, EOM intact ENT: hearing intact, clear oral mucosa Ears: bilateral: normal - Neck Neck: supple, normal ROM - Respiratory Respiratory effort: normal Respiratory: bilateral: CTA - Cardiovascular Rhythm: regular Heart Sounds: Present: S1 & S2. Absent: gallop, rub Extremities: pulses intact, No edema, normal color, Full ROM - Gastrointestinal General gastrointestinal: Present: soft, non-tender, non-distended, normal bowel sounds - Integumentary Integumentary: clear, warm, dry - Musculoskeletal Musculoskeletal: 1, strength equal bilaterally - Neurologic Neurologic: moves all extremities - Psychiatric Psychiatric: memory intact, appropriate mood/affect, intact judgment & insight Subjective Date of service: 12/02/18 Interval history: Pt seen and examined denies chest pain, afebrile Cr 1.5 today, PT eval pending Objective - Constitutional Vitals: Vital Signs - 12hr 12/02/18 12/02/18 12/02/18 00:36 04:37 09:43 Temperature 98.8 F 98.7 F 99.0 F Pulse Rate 62 58 L 61 Respiratory 20 18 14 Rate Blood Pressure 115/59 123/57 118/59 O2 Sat by Pulse 98 98 97 Oximetry 12/02/18 12/02/18 12/02/18 10:05 10:18 10:20 Temperature Pulse Rate 61 61 54 L Respiratory Rate Blood Pressure 118/59 118/59 O2 Sat by Pulse Oximetry - Labs CBC & Chem 7: 12/01/18 05:36 12/02/18 05:50 Labs: Abnormal lab results 12/02/18 Range/Units 05:50 Chloride 93.8 L (98-107) mmol/L Carbon Dioxide 31 H (22-30) mmol/L BUN 37 H (7-17) mg/dL Creatinine 1.5 H (0.7-1.2) mg/dL Glucose 103 H (65-100) mg/dL Calcium 7.4 L (8.4-10.2) mg/dL
[2018-12-02] MEDS: NACL 0.9% 500 ML 500 ML IV SCH (15:45)
[2018-12-03] MEDS: NACL 0.9% 500 ML 500 ML IV SCH (05:20)
[2018-12-03 07:34] VITALS: BP 145/63
[2018-12-03 07:43] LABS: Calcium 7.7 mg/dL (8.4-10.2)
[2018-12-03] MEDS: PLAVIX PO SCH (10:02)
[2018-12-03] MEDS: celeXA PO SCH (10:02)
[2018-12-03] MEDS: ASPIRIN PO SCH (10:02)
[2018-12-03] MEDS: PROTONIX PO SCH (10:02)
[2018-12-03] MEDS: COZAAR PO SCH (10:03)
[2018-12-03] MEDS: LOPRESSOR PO SCH (10:04)
--- NOTE | 2018-12-03 10:24 | Progress Note ---
Assessment and Plan Cultures: 11/27/2018 blood culture: Negative at 48 hours 11/27/2018 urine culture: No significant growth 11/28/2018 Rapid influenza test: Negative A/P: 88-year-old female with hypertension, gastroesophageal reflux disease, coronary artery disease. Admitted with: 1) Cough, fever and shortness of breath causing acute respiratory failure: concerning for possible pneumonia however chest x-ray and CT chest without any evidence of rebecca infiltrates. Low-grade fevers present but trend seems to be improving. No leukocytosis. WBC from today show some leukopenia, suggesting a possible viral infection. Blood cultures negative. UA and urine culture not consistent with urinary tract infection. 2) SIRS: secondary to above. Improving. Influenza rapid- negative Recs: Remains afebrile, clinically improved. okay to discharge from ID standpoint [facility] M: [phone] O:[phone] Subjective Date of service: 12/03/18 Interval history: Patient seen and examined. Sitting up in the chair, no acute distress. No fev er. Objective - Exam Narrative Exam: Constitutional: Alert, cooperative. No acute distress Head, Ears, Nose: Normocephalic, atraumatic. External ears, nose normal Eyes: Conjunctivae/corneas clear. No icterus. No ptosis. Neck: Supple, no meningeal signs Oral: dentition fair, no thrush. no oropharyngeal exudates Cardiovascular: S1, S2 normal. Respiratory: Good air entry, clear to auscultation bilaterally GI: Soft, non-tender; bowel sounds normal. No peritoneal signs Musculoskeletal: No pedal edema, no cyanosis. Skin: No rash or abscess Hem/Lymphatic: No palpable cervical or supraclavicular nodes. No lymphangitis Psych: Mood ok. Affect normal Neurological: Awake, alert, oriented. No gross abnormality - Constitutional Vitals: Vital Signs Temp Pulse Resp BP Pulse Ox 98.5 F 57 L 16 145/63 100 12/03/18 07:29 12/03/18 07:29 12/03/18 07:29 12/03/18 07:29 12/03/18 07:29 Temperature -Last 24 Hours Temperature 98.5 F Temperature 98.3 F Temperature 98.3 F Temperature 98.9 F Temperature 98.7 F Temperature 98.8 F - Labs CBC & Chem 7: 03/11/19 10:36 12/03/18 06:52 Labs: Abnormal lab results 12/03/18 Range/Units 06:52 Sodium 135 L (137-145) mmol/L Chloride 97.2 L (98-107) mmol/L Carbon Dioxide 34 H (22-30) mmol/L BUN 32 H (7-17) mg/dL Calcium 7.7 L (8.4-10.2) mg/dL
[2018-12-03 10:55] LABS: Hematocrit 34.8 % (30.3-42.9); Hemoglobin 11.9 gm/dl (10.1-14.3); Mean Corpuscular HGB Conc 34 % (30-34); Mean Corpuscular Volume 99 fl (79-97); Platelet Count 195 K/mm3 (140-440); Red Blood Count 3.54 M/mm3 (3.65-5.03)
[2018-12-03 13:27] LABS: Basophils % (Manual) 0 % (0.0-1.8); Platelet Estimate Consistent w Auto; RBC Morphology Normal; Total Cells Counted 100
--- NOTE | 2018-12-03 15:21 | Discharge Summary ---
Providers - Providers Date of Admission: 11/27/18 17:06 Date of discharge: 12/03/18 Attending physician: CRISTINA RICHARD 11/29/18 16:08 Consult to Physician [CONS] Routine Comment: Consulting Provider: ROSEANNA LITTLE Physician Instructions: Reason For Exam: persistent fever 12/01/18 13:15 Physical Therapy Evaluation and Treat [CONS] Routine Comment: Reason For Exam: placement Primary care physician: DA ORTIZ Hospitalization Condition: Stable Pertinent studies: CXR Chest CTA Hospital course: Brief history: Patient is an 88 year old woman with a history of 2 vessel coronary artery disease, presented with complaints of shortness of breath has been ongoing for several days associated with productive coughs followed with chest pain. In the ER Noted febrile with a temperature of 102.5. WBC is normal. Chest x-ray reports cardiomegaly but no evidence of heart failure. Chest CT scan reports nonspecific right upper lobe pulmonary nodules. No evidence of pulmonary embolus. She was placed on empiric abx for persistent fever. Cardiology consulted and recommended medical Mx. ID consulted for persistent fever and concluded that her febrile illness most likely viral fever. Patient then developed GRAY, likely from lasix. GRAY resolved after stopping lasix and giving gentle iv fluid. She was discharged home in stable condition when she remained afebrile. She was recommended outpt f/u with her PCP. Discharge diagnosis and management: /Acute Respiratory failure, now resolved no infiltrates on CXR, CTA negative for PE likely from viral infection associated severe cough with fever negative for rapid infuenza test, PCR for influenza ordered / SIRS (systemic inflammatory response syndrome) w/o organ dysfunction Initially placed Empiric antibiotic therapy, negative influenza swab, negative blood cx, negative UA Consulted ID for persistent fever - concluded possible viral infection She was afebrile before discharge /GRAY, likely from lasix Cr was normal on admission Stopped lasix and given low volume NS Cr was stable on discharge / CAD h/o - has normal MPI with preserved EF on 11/23/2018 conservative workup per cardiology /Pulmonary nodule, repeat CT chest in 3-6 months outpt /Hypertension Monitored bp q shift, / DVT prophylaxis SCD to BLE while in bed Physical exam: General appearance: Present: mild distress - EENT Eyes: PERRL, EOM intact ENT: hearing intact, clear oral mucosa Ears: bilateral: normal - Neck Neck: supple, normal ROM - Respiratory Respiratory effort: normal Respiratory: bilateral: CTA - Cardiovascular Rhythm: regular Heart Sounds: Present: S1 & S2. Absent: gallop, rub Extremities: pulses intact, No edema, normal color, Full ROM - Gastrointestinal General gastrointestinal: Present: soft, non-tender, non-distended, normal bowel sounds - Integumentary Integumentary: clear, warm, dry - Musculoskeletal Musculoskeletal: 1, strength equal bilaterally - Neurologic Neurologic: moves all extremities - Psychiatric Psychiatric: memory intact, appropriate mood/affect, intact judgment & insight Disposition: [id number]/[place]-06 HOME [facility] Time spent for discharge: 34 minutes Core Measure Documentation - Palliative Care Palliative Care/ Comfort Measures: Not Applicable - Core Measures Any of the following diagnoses?: history only Exam - Constitutional Vitals: Temp Pulse Resp BP Pulse Ox 98.7 F 58 L 16 145/63 100 12/03/18 11:41 12/03/18 11:41 12/03/18 11:41 12/03/18 11:41 12/03/18 11:41 Plan Activity: advance as tolerated Weight Bearing Status: Weight Bear as Tolerated Diet: low fat, low salt Follow up with: DA ORTIZ MD [Primary Care Provider] - 3-5 Days
== END 2018-12-03 20:00 | disposition home health service (06) | DRG 865 ==
LOC: ED 11:47 → 4A 17:06
PROVIDERS: ADMIT Internal Medicine; ATTEND Internal Medicine
DX: B34.9 Viral infection, unspecified (principal); I50.21 Acute systolic (congestive) heart failure; J96.01 Acute respiratory failure with hypoxia; N17.9 Acute kidney failure, unspecified; R65.10 Systemic inflammatory response syndrome (SIRS) of non-infectious origin without acute organ dysfunction; I11.0 Hypertensive heart disease with heart failure; I25.10 Atherosclerotic heart disease of native coronary artery without angina pectoris; J38.2 Nodules of vocal cords; R91.1 Solitary pulmonary nodule; K21.9 Gastro-esophageal reflux disease without esophagitis; M19.90 Unspecified osteoarthritis, unspecified site; I73.9 Peripheral vascular disease, unspecified; E87.6 Hypokalemia; E66.9 Obesity, unspecified; Z68.31 Body mass index [BMI] 31.0-31.9, adult; Z82.49 Family history of ischemic heart disease and other diseases of the circulatory system; Z79.82 Long term (current) use of aspirin; Z79.899 Other long term (current) drug therapy; I25.2 Old myocardial infarction; Z86.718 Personal history of other venous thrombosis and embolism
CPT/HCPCS: 36415; 71046; 71275; 80048; 80076; 81001; 82140; 83690; 83880; 84439; 84443; 84484; 85007; 85025; 85027; 85379; 87040; 87086; 87400; 93005; 93010; 94760; G0378; A9270-GY; J0692; J1940; J1956; J3370; J3480; J7040; Q9967

== ENCOUNTER 2021-03-02 00:38 | Inpatient (IN) | payer MEDICARE ==
--- NOTE | 2021-03-02 05:25 | XRay Report ---
CHEST 1 VIEW INDICATION / CLINICAL INFORMATION: Sob. COMPARISON: 03/30/2020 FINDINGS: SUPPORT DEVICES: None. HEART / MEDIASTINUM: Stable cardiomegaly. LUNGS / PLEURA: There is pulmonary vascular congestion. Additionally there is pulmonary opacity in th e right lung base, nonspecific possibly representing atelectasis or pneumonia. No large pleural effus ion noted. No pneumothorax. ADDITIONAL FINDINGS: No significant additional findings. IMPRESSION: 1. Pulmonary vascular congestion with cardiomegaly. 2. Nonspecific right basilar parenchymal disease possibly representing atelectasis. Clinical correlat ion recommended. Signer Name: Hilary Wills MD Signed: 03/02/2021 5:21 AM Workstation Name: [id number]
[2021-03-02 05:29] LABS: Basophils # (Auto) 0.1 K/mm3 (0.0-0.1); Basophils % (Auto) 1.2 % (0.0-1.8); Eosinophils # (Auto) 0.3 K/mm3 (0.0-0.4); Eosinophils % (Auto) 3.3 % (0.0-4.3); Hematocrit 31.2 % (30.3-42.9); Hemoglobin 10.4 gm/dl (10.1-14.3); Lymphocytes # (Auto) 1.5 K/mm3 (1.2-5.4); Lymphocytes % (Auto) 18.8 % (13.4-35.0); Mean Corpuscular HGB Conc 33 % (30-34); Mean Corpuscular Volume 98 fl (79-97); Monocytes # (Auto) 0.8 K/mm3 (0.0-0.8); Monocytes % (Auto) 10.3 % (0.0-7.3); Platelet Count 263 K/mm3 (140-440); Red Blood Count 3.19 M/mm3 (3.65-5.03); Red Cell Distribution Width 15.7 % (13.2-15.2)
[2021-03-02 05:44] LABS: Alanine Aminotransferase 45 units/L (7-56); BUN/Creatinine Ratio 17; Blood Urea Nitrogen 27 mg/dL (7-17); Hemolysis Index 0
[2021-03-02] MEDS ORDERED: FUROSEMIDE 20 MG/2 ML INJ IV ONE (06:21)
[2021-03-02] MEDS ORDERED: ACETAMINOPHEN 325 MG/10.15 ML ORAL LIQD UNIT DOSE PO ONE (06:21)
[2021-03-02] MEDS ORDERED: PANTOPRAZOLE 40 MG INJ IV ONE (06:21)
[2021-03-02] MEDS ORDERED: ASPIRIN 81 MG TAB CHEW PO ONE (06:22)
--- NOTE | 2021-03-02 06:22 | Emergency Department Report ---
ED General Adult HPI - General Chief complaint: Abdominal Pain Stated complaint: ABDOMINAL PAIN PUI?: No Time Seen by Provider: 03/02/21 05:14 Source: patient, EMS ( EMS documentation not available at time of chart dictat ion ), RN notes reviewed, old records reviewed Mode of arrival: Ambulatory Limitations: Physical Limitation - History of Present Illness Initial comments: The patient was evaluated in the emergency department for symptoms described in the history of present illness. He/she was evaluated in the context of the global COVID-19 pandemic, which necessitated consideration that the patient might be at risk for infection with the virus that causes COVID-19. Institutional protocols and algorithms that pertain to the evaluation of patients at risk for COVID-19 are in a state of rapid change based on informatio n released by regulatory bodies including the CDC and federal and state organizations. These policies and algorithms were followed during the patient's care in the emergency department. Please note that these policies, procedures and recommendations changed on a rapid basis. Primary CARE doctor: Patient cannot member the name. Gastroenterology: Dr. Triplett Pulmonology: Patient cannot remember the name Past medical history: Hypertension, heart disease with stents, on home oxygen, 2 to 3 L, question COPD versus emphysema versus asthma Hypertension, high cholesterol, GERD, history of COVID-19 in 2020. Patient has not received a COVID-19 vaccination. The patient is an 89-year-old female. She is not known to myself previously. She presents to the ER with a complaint of upper abdominal pain. She indicates the pain is in the epigastric and right upper quadrant region. She states the pain has been there for about a month. She indicates it does not move anywhere. She indicates increases with palpation and decreases with rest and position. She saw her physical therapist, who reportedly ordered blood work, but she is not quite sure what other interventions have been recommended. She denies headache, neck pain, chest pain. She has no lower abdominal pain. She denies urinary symptoms. She has lower extremity edema which she thinks is constant, and she has chronic shortness of breath. She does not believe she has had loss of taste or smell. She does not believe she has had hematemesis, bright red blood per rectum, or melena. The patient is somewhat of a poor historian, she does have difficulty describing the qualitative nature of her symptoms, exacerbating factors, relieving factors or aggravating factors, and she has difficulty recalling the names of some of her outpatient physicians. The patient is not accompanied by friends or family at this time for additional information or collateral information. -: days(s), week(s) Location: abdomen Radiation: other Quality: other Consistency: other Improves with: other Worsens with: other Associated Symptoms: other - Related Data Home Medications Medication Instructions Recorded Confirmed Last Taken Omeprazole 1 cap PO DAILY 08/04/14 03/31/20 11/26/18 Previous Rx's Medication Instructions Recorded Last Taken Type Aspirin 325 mg PO QDAY #30 tablet 04/08/15 11/26/18 Rx AtorvaSTATin [Lipitor] 20 mg PO QHS #30 tablet 04/08/15 11/26/18 Rx Citalopram [celeXA] 10 mg PO DAILY #30 tablet 04/08/15 11/26/18 Rx Clopidogrel [Plavix] 75 mg PO QDAY #30 tablet 04/08/15 11/26/18 Rx Metoprolol [Lopressor TAB] 25 mg PO BID #60 tablet 04/08/15 11/26/18 Rx lisinopriL [Zestril TAB] 20 mg PO QDAY #30 tablet 04/08/15 11/26/18 Rx amLODIPine 10 mg PO QDAY #30 tablet 04/07/20 Unknown Rx dexAMETHasone [Decadron] 6 mg PO DAILY #4 tablet 04/07/20 Unknown Rx Allergies Allergy/AdvReac Type Severity Reaction Status Date / Time No Known Allergies Allergy Verified 08/04/14 12:40 ED Review of Systems ROS: Stated complaint: ABDOMINAL PAIN Other details as noted in HPI Constitutional: malaise, weakness. denies: fever Eyes: denies: eye discharge ENT: congestion Respiratory: shortness of breath, SOB with exertion Cardiovascular: edema. denies: chest pain Gastrointestinal: abdominal pain. denies: vomiting Genitourinary: denies: dysuria Musculoskeletal: myalgia Neurological: weakness ED Past Medical Hx - Past Medical History Hx Hypertension: Yes Hx Heart Attack/AMI: No Hx GERD: Yes Hx Renal Disease: No Hx Arthritis: Yes Hx Seizures: No Hx Asthma: No Hx COPD: No Hx Tuberculosis: No Hx HIV: No - Surgical History Additional Surgical History: eye - Social History Smoking Status: Never Smoker Substance Use Type: None - Medications Home Medications: Home Medications Medication Instructions Recorded Confirmed Last Taken Type Omeprazole 1 cap PO DAILY 08/04/14 03/31/20 11/26/18 History Aspirin 325 mg PO QDAY #30 tablet 04/08/15 03/31/20 11/26/18 Rx AtorvaSTATin [Lipitor] 20 mg PO QHS #30 tablet 04/08/15 03/31/20 11/26/18 Rx Citalopram [celeXA] 10 mg PO DAILY #30 tablet 04/08/15 03/31/20 11/26/18 Rx Clopidogrel [Plavix] 75 mg PO QDAY #30 tablet 04/08/15 03/31/20 11/26/18 Rx Metoprolol [Lopressor TAB] 25 mg PO BID #60 tablet 04/08/15 03/31/20 11/26/18 Rx lisinopriL [Zestril TAB] 20 mg PO QDAY #30 tablet 04/08/15 03/31/20 11/26/18 Rx amLODIPine 10 mg PO QDAY #30 tablet 04/07/20 Unknown Rx dexAMETHasone [Decadron] 6 mg PO DAILY #4 tablet 04/07/20 Unknown Rx ED Physical Exam - General Limitations: Physical Limitation, Other (Patient is also a poor historian) General appearance: alert, in no apparent distress, obese - Head Head exam: Present: atraumatic, normocephalic - Eye Eye exam: Present: normal appearance, EOMI. Absent: nystagmus - ENT ENT exam: Present: normal exam, normal orophraynx, mucous membranes moist, normal external ear exam - Neck Neck exam: Present: normal inspection, full ROM. Absent: tenderness, meningismus - Respiratory Respiratory exam: Present: wheezes, rales, other (Faint wheezes and rales noted at the bilateral lung bases). Absent: stridor - Cardiovascular Cardiovascular Exam: Present: regular rate, normal rhythm, normal heart sounds, JVD. Absent: bradycardia, tachycardia, irregular rhythm, systolic murmur, diastolic murmur, rubs, gallop - GI/Abdominal GI/Abdominal exam: Present: soft, tenderness, other (There is epigastric tenderness. There is right upper quadrant tenderness.). Absent: distended, guarding, rigid, pulsatile mass - Extremities Exam Extremities exam: Present: normal inspection, full ROM, pedal edema (2+ edema in the bilateral lower extremities), other (2+ pulses noted in the bilateral upper and lower extremities. There is no palpable cord. negative Homans sign. Muscular compartments are soft. The pelvis is stable.). Absent: calf tenderness - Back Exam Back exam: Present: normal inspection, full ROM. Absent: tenderness, CVA tenderness (R), CVA tenderness (L), paraspinal tenderness, vertebral tenderness - Neurological Exam Neurological exam: Present: alert, other (No facial droop. Tongue midline. Ex traocular movements intact bilaterally. Facial sensation intact to light touch in V1, V2, V3 distribution bilaterally. 5 and a 5 strength in 4 extremities. Sensation intact to light touch in 4 extremities.) - Psychiatric Psychiatric exam: Present: normal affect, normal mood - Skin Skin exam: Present: warm, dry, intact, normal color. Absent: rash ED Course Vital Signs 03/02/21 03/02/21 03/02/21 02:07 06:15 07:00 Temperature 97.8 F 97.8 F Pulse Rate 77 86 82 Respiratory 18 28 H 24 Rate Blood Pressure 142/66 Blood Pressure 146/55 167/80 [Right] O2 Sat by Pulse 95 90 99 Oximetry 03/02/21 07:38 Temperature Pulse Rate Respiratory 24 Rate Blood Pressure Blood Pressure [Right] O2 Sat by Pulse Oximetry - Reevaluation(s) Reevaluation #1: 03/02/21 06:39 Differential diagnosis, including the not limited to: GERD, gastritis, hiatal hernia, pneumonia, cardiorenal syndrome, CHF, cholecystitis 03/02/21 06:40 Assessment and plan: 89-year-old female with multiple medical comorbidities, including chronic respiratory failure on 2 to 3 L of home oxygen, presenting wi th epigastric and right upper quadrant pain, radiographic evidence of CHF, and possible right lower lobe pneumonia versus atelectasis, renal insufficiency. Continue patient on equipment monitor phototypesetting, continue home oxygen, laboratory studies reviewed and appreciated, administer aspirin, Protonix, and Lasix. Obtain right upper quadrant ultrasound, and CT scan abdomen pelvis to better delineate upper abdominal pathology. Admit patient to the medical service once initial diagnostics have resulted. Discussed this plan of care with the patient, who verbalized understanding and is amenable to this plan of care. This patient had COVID-19 in 2019. She denies loss of taste and smell. Recurrence of Covid is unlikely. 03/02/21 06:47 Patient's breathing became more labored, after she was placed in a gown, and had her initial physical examination. In addition, on supplemental oxygen, O2 sat 78 to 81%. Patient will be given a trial of BiPAP therapy, in addition to albuterol, Atrovent, steroids plus Lasix. Initial diagnostic imaging is still pending. 03/02/21 07:50 Patient clinically improved on BiPAP. Right upper quadrant ultrasound negative. CT scan abdomen pelvis pending interpretation. Hospital physician, Dr. Dewayne Garcia to admit to [facility] ED Medical Decision Making - Lab Data Result diagrams: 03/02/21 04:56 03/02/21 04:56 Vital Signs 03/02/21 02:07 Temperature 97.8 F Pulse Rate 77 Respiratory 18 Rate Blood Pressure 142/66 O2 Sat by Pulse 95 Oximetry Lab Results 03/02/21 03/02/21 03/02/21 Range/Units 04:56 04:56 04:56 WBC 8.0 (4.5-11.0) K/mm3 RBC 3.19 L (3.65-5.03) M/mm3 Hgb 10.4 (10.1-14.3) gm/dl Hct 31.2 (30.3-42.9) % MCV 98 H (79-97) fl MCH 33 H (28-32) pg MCHC 33 (30-34) % RDW 15.7 H (13.2-15.2) % Plt Count 263 (140-440) K/mm3 Lymph % (Auto) 18.8 (13.4-35.0) % Pitkin % (Auto) 10.3 H (0.0-7.3) % Eos % (Auto) 3.3 (0.0-4.3) % Baso % (Auto) 1.2 (0.0-1.8) % Lymph # (Auto) 1.5 (1.2-5.4) K/mm3 Pitkin # (Auto) 0.8 (0.0-0.8) K/mm3 Eos # (Auto) 0.3 (0.0-0.4) K/mm3 Baso # (Auto) 0.1 (0.0-0.1) K/mm3 Seg Neutrophils % 66.4 (40.0-70.0) % Seg Neutrophils # 5.3 (1.8-7.7) K/mm3 Sodium 143 (137-145) mmol/L Potassium 4.6 (3.6-5.0) mmol/L Chloride 101.1 (98-107) mmol/L Carbon Dioxide 30 (22-30) mmol/L Anion Gap 17 mmol/L BUN 27 H (7-17) mg/dL Creatinine 1.6 H (0.6-1.2) mg/dL Estimated GFR 37 ml/min BUN/Creatinine Ratio 17 % Glucose 105 H (65-100) mg/dL Calcium 9.0 (8.4-10.2) mg/dL Total Bilirubin 0.50 (0.1-1.2) mg/dL AST 41 H (5-40) units/L ALT 45 (7-56) units/L Alkaline Phosphatase 92 (35-129) units/L Troponin T < 0.010 (0.00-0.029) ng/mL NT-Pro-B Natriuret Pep 4601 H (0-900) pg/mL Total Protein 7.8 (6.3-8.2) g/dL Albumin 4.0 (3.9-5) g/dL Albumin/Globulin Ratio 1.1 % Lipase 43 (13-60) units/L - EKG Data -: EKG Interpreted by Sd EKG shows normal: sinus rhythm Rate: normal - EKG Data When compared to previous EKG there are: no significant change 03/02/21 06:38 EKG interpreted at 05: 23 Sinus rhythm, 82 bpm. Normal axis, QTC 461 ms. Poor R wave progression. Motion artifact V5. Low voltage globally. Abnormal EKG. STEMI. Borderline left ventricular hypertrophy, lead I. Appears unchanged when compared to prior EKG from March 31, 2020 - Radiology Data Radiology results: pending, report reviewed, image reviewed [facility] [address] [place] [address] XRay Report Signed Patient: MARGUERITE SCHULZ MR#: [id number] : 1930 Acct:[id number] Age/Sex: 89 / F ADM Date: 03/02/21 Loc: ED Attending Dr: Ada tavera Physician: Sandra Shetty MD Date of Service: 03/02/21 Procedure(s): XR chest 1V ap Accession Number(s): [id number] cc: Sandra Shetty MD Fluoro Time In Minutes: CHEST 1 VIEW INDICATION / CLINICAL INFORMATION: Sob. COMPARISON: 03/30/2020 FINDINGS: SUPPORT DEVICES: None. HEART / MEDIASTINUM: Stable cardiomegaly. LUNGS / PLEURA: There is pulmonary vascular congestion. Additionally there is pulmonary opacity in the right lung base, nonspecific possibly representing atelectasis or pneumonia. No large pleural effusion noted. No pneumothorax. ADDITIONAL FINDINGS: No significant additional findings. IMPRESSION: 1. Pulmonary vascular congestion with cardiomegaly. 2. Nonspecific right basilar parenchymal disease possibly representing atelectasis. Clinical correlation recommended. Signer Name: Hilary Wills MD Signed: 03/02/2021 5:21 AM Workstation Name: [id number] Transcribed By: Dictated By: Hilary Wills MD Electronically Authenticated By: Hilary Wills MD Signed Date/Time: 03/02/21520 DD/ 3 TD/TT: [facility] [address] [place] [address] Ultrasound Report Signed Patient: MARGUERITE SCHULZ MR#: [id number] : 1930 Acct:[id number] Age/Sex: 89 / F ADM Date: 03/02/21 Loc: ED Attending Dr: Ordering Physician: KAITY DAVISON MD Date of Service: 03/02/21 Procedure(s): US abdomen limited Accession Number(s): [id number] cc: KAITY DAVISON MD ULTRASOUND ABDOMEN, LIMITED (RIGHT UPPER QUADRANT) INDICATION: ruq abd pain. COMPARISON: None available. FINDINGS: Pancreas: Pancreas is poorly visualized. Liver: Normal. Gallbladder: Small amount of sludge is noted within the gallbladder lumen but no visible gallstones and no gallbladder wall thickening. Bile ducts: Normal. Common Bile Duct measures 3 mm. Free fluid: None. Additional Findings: Incidental note is made of a slightly echogenic right kidney without hydronephrosis, indicating medical renal disease. IMPRESSION: 1. Small amount of gallbladder sludge is present but no evidence for gallstones or gallbladder wall thickening. 2. Echogenic right kidney suggesting medical renal disease. No hydronephrosis. 3. Poor visualization of the pancreas. Signer Name: Hilary Wills MD Signed: 03/02/2021 7:34 AM Workstation Name: [id number] Transcribed By: JR Dictated By: Hilary Wills MD Electronically Authenticated By: Hilary Wills MD Signed Date/Time: 03/02/2134 DD/ 0732 [facility] [address] [place] [address] Cat Scan Report Signed Patient: MARGUERITE SCHULZ MR#: [id number] : 1930 Acct:[id number] Age/Sex: 89 / F ADM Date: 03/02/21 Loc: ED Attending Dr: Ordering Physician: KAITY DAVISON MD Date of Service: 03/02/21 Procedure(s): CT abdomen pelvis wo con Accession Number(s): [id number] cc: KAITY DAVISON MD CT ABDOMEN AND PELVIS WITHOUT CONTRAST HISTORY: Patient complains of upper abdominal pain COMPARISON: Ultrasound abdomen limited performed earlier today TECHNIQUE: Axial CT images were obtained through the abdomen and pelvis without IV contrast. Sagittal and coronal reformatted images. All CT scans at this location are performed using CT dose reduction for ALARA by means of automated e xposure control. FINDINGS: CT ABDOMEN: Lung Bases: Mild cardiomegaly, mild congestive changes and trace right pleural effusion are identified. Bronchovascular markings in the right lower lobe are slightly prominent which probably represents atelectatic changes. No convincing infiltrate. Liver: The l iver is mildly enlarged but no evidence for focal lesion or advanced parenchymal disease. Biliary: No significant abnormality. Spleen: No significant abnormality. Unenlarged. Pancreas: No significant abnormality. Adrenals: No significant abnormality. Kidneys: The kidneys are normal size and position. Punctate calyceal stone is identified in the superior right kidney. 2 cm right renal cyst as well. The left kidney and collecting system are unremarkable. No hydronephrosis. Lymphatics: No lymphadenopathy. Vasculature: Moderate diffuse calcifications throughout the aorta and iliac arteries. No aneurysm. Bowel/Peritoneum: There are a few scattered diverticula in the colon. No evidence for obstruction or focal inflammation. Normal appendix. No free fluid, free air or fluid collection. CT PELVIS: : The uterus is surgically absent. No adnexal abnormality. The bladder is unremarkable. Osseous Structures: Osteopenia. Advanced degenerative changes in the lower lumbar spine. Additional Findings: None IMPRESSION: No acute abdominal process is appreciated. Mild CHF. Probable segmental atelectasis in the right lower lobe. Mild hepatomegaly. Punctate right renal stone and 2 cm right renal cyst. Mild diverticulosis of the colon. Hysterectomy. Signer Name: Henok Liz Jr, MD Signed: 03/02/2021 7:53 AM Workstation Name: [id number] Transcribed By: TTR Dictated By: HENOK LIZ JR, MD Electronically Authenticated By: HENOK LIZ JR, MD Signed Date/Time: 03/02/21 0753 DD/ 0749 Critical Care Time: Yes Critical care time in (mins) excluding proc time.: 35 Critical care attestation.: If time is entered above; I have spent that time in minutes in the direct care of this critically ill patient, excluding procedure time. ED Disposition Clinical Impression: CHF (congestive heart failure), Upper abdominal pain, Renal insufficiency Disposition: OP ADMIT IP TO THIS HOSP Is pt being admited?: Yes Does the pt Need Aspirin: Yes Condition: Good Instructions: Abdominal Pain (ED) Referrals: PRIMARY CARE, [Primary Care Provider] - 3-5 Days
[2021-03-02] MEDS ORDERED: ALBUTEROL 2.5 MG/3 ML NEBU IH ONE (06:33)
[2021-03-02] MEDS ORDERED: IPRATROPIUM 0.02% NEBU 2.5 ML IH ONE (06:47)
[2021-03-02] MEDS ORDERED: methylPREDNISolone Sod Succinate 125 MG/2 ML INJ IV ONE (06:47)
[2021-03-02] MEDS ORDERED: AZITHROMYCIN/NS 500 MG/250 ML 500 MG/250 ML BAG IV ONE (06:49)
[2021-03-02] MEDS ORDERED: cefTRIAXone/NS 1 GM/50 ML 1 GM/50 ML BAG IV ONE (06:49)
--- NOTE | 2021-03-02 07:39 | Ultrasound Report ---
ULTRASOUND ABDOMEN, LIMITED (RIGHT UPPER QUADRANT) INDICATION: ruq abd pain. COMPARISON: None available. FINDINGS: Pancreas: Pancreas is poorly visualized. Liver: Normal. Gallbladder: Small amount of sludge is noted within the gallbladder lumen but no visible gallstones a nd no gallbladder wall thickening. Bile ducts: Normal. Common Bile Duct measures 3 mm. Free fluid: None. Additional Findings: Incidental note is made of a slightly echogenic right kidney without hydronephro sis, indicating medical renal disease. IMPRESSION: 1. Small amount of gallbladder sludge is present but no evidence for gallstones or gallbladder wall t hickening. 2. Echogenic right kidney suggesting medical renal disease. No hydronephrosis. 3. Poor visualization of the pancreas. Signer Name: Hilary Wills MD Signed: 03/02/2021 7:34 AM Workstation Name: [id number]
--- NOTE | 2021-03-02 07:53 | History and Physical Report ---
History of Present Illness Date of examination: 03/02/21 Date of admission: 03/02/21 Chief complaint: abdominal pain History of present illness: The patient is an 89-year-old female with history of COVID-19 infection on 2019, possible COPD on 2 to 3 L home O2, morbid obesity, hypertension hyperlipidemia GERD who presented to the ER with a complaint of upper abdominal pain. She states that the pain is in the epigastric and right upper quadrant region for about a month. Pain increases with palpation and decreases with rest and position. She saw her char filter operator helper, who reportedly ordered blood work, but she is not quite sure what other interventions have been recommended. She denies headache, neck pain, chest pain. She has no lower abdominal pain. She denies urinary symptoms. She has lower extremity edema and she has recent worsening of chronic shortness of breath. Patient stated that she did not take COVID-19 vaccine. In the ER patient noted to be hypoxic and placed on BiPAP which improved her symptoms. CT abdomen pelvis obtained which did not show any acute abdominal process. Abdominal ultrasound suggestive of gallbladder sludge without any sign of cholecystitis. Her chest x-ray suggestive of pulmonary vascular congestion and right basilar parenchymal disease. Patient requested for admission for acute on chronic respiratory failure requiring BiPAP support and worsening abdominal pain. Past History Past medical history: Hypertension, heart disease with stents, on home oxygen, 2 to 3 L, possible COPD versus emphysema versus asthma Hypertension, high cholesterol, GERD, history of COVID-19 in 2019. Patient has not received a COVID-19 vaccination. Past Surgical History: No surgical history, Other (reviewed) Social history: . denies: smoking, alcohol abuse, prescription drug abuse Family history: hypertension Review of Systems Constitutional: malaise, weakness. denies: fever Eyes: denies: eye discharge ENT: congestion Respiratory: shortness of breath, SOB with exertion Cardiovascular: edema. denies: chest pain Gastrointestinal: abdominal pain. denies: vomiting Genitourinary: denies: dysuria Musculoskeletal: myalgia Neurological: weakness Medications and Allergies Allergies Allergy/AdvReac Type Severity Reaction Status Date / Time No Known Allergies Allergy Verified 08/04/14 12:40 Home Medications Medication Instructions Recorded Confirmed Last Taken Type Omeprazole 1 cap PO DAILY 08/04/14 03/05/21 3 Days Ago History ~03/02/21 Aspirin 325 mg PO QDAY #30 tablet 04/08/15 03/05/21 3 Days Ago Rx ~03/02/21 AtorvaSTATin [Lipitor] 20 mg PO QHS #30 tablet 04/08/15 03/05/21 3 Days Ago Rx ~03/02/21 Citalopram [celeXA] 10 mg PO DAILY #30 tablet 04/08/15 03/05/21 3 Days Ago Rx ~03/02/21 Clopidogrel [Plavix] 75 mg PO QDAY #30 tablet 04/08/15 03/05/21 3 Days Ago Rx ~03/02/21 Metoprolol [Lopressor TAB] 25 mg PO BID #60 tablet 04/08/15 03/05/21 3 Days Ago Rx ~03/02/21 lisinopriL [Zestril TAB] 20 mg PO QDAY #30 tablet 04/08/15 03/05/21 3 Days Ago Rx ~03/02/21 amLODIPine 10 mg PO QDAY #30 tablet 04/07/20 03/05/21 3 Days Ago Rx ~03/02/21 Exam - Physical Exam Narrative exam: General appearance: Present: mild distress, obese - EENT Eyes: Present: PERRL ENT: hearing intact, clear oral mucosa - Neck Neck: Present: supple, normal ROM - Respiratory Respiratory effort: Labored, on BiPAP Respiratory: bilateral: diminished, rhonchi - Cardiovascular Heart Sounds: Present: S1 & S2. Absent: rub, click - Extremities Extremity abnormal: edema Peripheral Pulses: within normal limits - Abdominal General gastrointestinal: Present: soft, non-tender, non-distended, normal bowel sounds Female genitourinary: Present: normal - Integumentary Integumentary: Present: clear, warm, dry - Musculoskeletal Musculoskeletal: gait normal, strength equal bilaterally - Psychiatric Psychiatric: appropriate mood/affect, intact judgment & insight - Neurologic Neurologic: CNII-XII intact, moves all extremities - Constitutional Vitals: Temp Pulse Resp BP Pulse Ox 97.8 F 82 24 167/80 99 03/02/21 06:15 03/02/21 07:00 03/02/21 07:38 03/02/21 07:00 03/02/21 07:00 HEART Score - HEART Score Troponin: Troponin T < 0.010 ng/mL (0.00-0.029) 03/02/21 04:56 Results - Labs CBC & Chem 7: 03/02/21 04:56 03/05/21 13:27 Labs: Abnormal lab results 03/02/21 03/02/21 03/02/21 Range/Units 04:56 04:56 04:56 RBC 3.19 L (3.65-5.03) M/mm3 MCV 98 H (79-97) fl MCH 33 H (28-32) pg RDW 15.7 H (13.2-15.2) % [place] % (Auto) 10.3 H (0.0-7.3) % BUN 27 H (7-17) mg/dL Creatinine 1.6 H (0.6-1.2) mg/dL Glucose 105 H (65-100) mg/dL AST 41 H (5-40) units/L NT-Pro-B Natriuret Pep 4601 H (0-900) pg/mL - Imaging and Cardiology Chest x-ray: report reviewed CT scan - abdomen: report reviewed US - abdomen: report reviewed Assessment and Plan Acute on chronic respiratory failure respiratory failure -Likely due to underlying COPD/chf exacerbation, right lower lobe pneumonia -We will also rule out COVID-19 as patient did not receive any vaccination -- We'll admit the patient to telemetry - Will provide scheduled nebulizer breathing treatment and as needed -We will also provide IV Lasix for possible CHF exacerbation - Place on empiric steroid and antibiotic - will get sputum culture, chest x-ray was unremarkable - Provide supplemental oxygen to keep oxygen saturation above 92% - Consider to consult pulmonary if no improvement in next 24 hours Possible new onset CHF exacerbation -Continue IV Lasix, monitor ins and outs and daily weight -Order 2D echocardiogram Right lower lobe pneumonia, continue empiric antibiotic, rule out COVID-19 COVID-19 PUI, ordered the test, maintain isolation protocol Abdominal pain, likely due to underlying GERD or gallbladder pathology -Continue to monitor LFT, continue PPI and will consult general surgery Lower extremity swelling -Likely due to venous insufficiency versus underlying CHF -We will order for 2D echo and continue IV Lasix for now GRAY, likely due to vasomotor nephropathy -Monitor BMP, will consult nephrology if no improvement Coronary artery disease, will resume her home meds History of COVID-19 -Continue supportive care, patient did not receive COVID-19 vaccine -We will reorder Covid test Advanced age, supportive care Debility, PT eval: Clinically stable - Provide DVT prophylaxis with Lovenox.
--- NOTE | 2021-03-02 07:58 | Cat Scan Report ---
CT ABDOMEN AND PELVIS WITHOUT CONTRAST HISTORY: Patient complains of upper abdominal pain COMPARISON: Ultrasound abdomen limited performed earlier today TECHNIQUE: Axial CT images were obtained through the abdomen and pelvis without IV contrast. Sagittal and coronal reformatted images. All CT scans at this location are performed using CT dose reduction for ALARA by means of automated exposure control. FINDINGS: CT ABDOMEN: Lung Bases: Mild cardiomegaly, mild congestive changes and trace right pleural effusion are identifie d. Bronchovascular markings in the right lower lobe are slightly prominent which probably represents atelectatic changes. No convincing infiltrate. Liver: The liver is mildly enlarged but no evidence for focal lesion or advanced parenchymal disease. Biliary: No significant abnormality. Spleen: No significant abnormality. Unenlarged. Pancreas: No significant abnormality. Adrenals: No significant abnormality. Kidneys: The kidneys are normal size and position. Punctate calyceal stone is identified in the super ior right kidney. 2 cm right renal cyst as well. The left kidney and collecting system are unremarkab le. No hydronephrosis. Lymphatics: No lymphadenopathy. Vasculature: Moderate diffuse calcifications throughout the aorta and iliac arteries. No aneurysm. Bowel/Peritoneum: There are a few scattered diverticula in the colon. No evidence for obstruction or focal inflammation. Normal appendix. No free fluid, free air or fluid collection. CT PELVIS: : The uterus is surgically absent. No adnexal abnormality. The bladder is unremarkable. Osseous Structures: Osteopenia. Advanced degenerative changes in the lower lumbar spine. Additional Findings: None IMPRESSION: No acute abdominal process is appreciated. Mild CHF. Probable segmental atelectasis in the right lower lobe. Mild hepatomegaly. Punctate right renal stone and 2 cm right renal cyst. Mild diverticulosis of the colon. Hysterectomy. Signer Name: Henok Liz Jr, MD Signed: 03/02/2021 7:53 AM Workstation Name: [id number]
[2021-03-02] MEDS ORDERED: methylPREDNISolone Sod Succinate 125 MG/2 ML INJ ONE (09:13)
[2021-03-02] MEDS ORDERED: NON-FORMULARY EACH (Omeprazole [Omeprazole] 40 MG Capsule.Dr) PO SCH (10:00)
[2021-03-02] MEDS ORDERED: ALBUTEROL 2.5 MG/3 ML NEBU IH PRN (14:14)
[2021-03-02] MEDS: METOPROLOL TARTRATE 25 MG TAB PO SCH ×2 (18:25→22:34)
[2021-03-02] MEDS: methylPREDNISolone Sod Succinate 40 MG/1 ML INJ IV SCH ×2 (18:25→22:33)
[2021-03-02] MEDS: CITALOPRAM 10 MG TAB PO SCH ×2 (18:25→18:44)
[2021-03-02] MEDS: amLODIPine 10 MG TAB PO SCH ×2 (18:25→18:44)
[2021-03-02] MEDS: CLOPIDOGREL 75 MG TAB PO SCH ×2 (18:25→18:44)
[2021-03-02] MEDS: FUROSEMIDE 40 MG/4 ML INJ IV SCH (18:44)
[2021-03-02] MEDS: HEPARIN 5,000 UNIT/1 ML VIAL SUB-Q SCH (22:33)
[2021-03-02] MEDS: cefTRIAXone/NS 1 GM/50 ML 1 GM/50 ML BAG IV SCH (22:34)
[2021-03-03] MEDS: HEPARIN 5,000 UNIT/1 ML VIAL SUB-Q SCH ×3 (06:48→22:25)
[2021-03-03] MEDS: FUROSEMIDE 40 MG/4 ML INJ IV SCH (06:49)
[2021-03-03] MEDS: methylPREDNISolone Sod Succinate 40 MG/1 ML INJ IV SCH ×3 (06:49→22:26)
[2021-03-03] MEDS ORDERED: AZITHROMYCIN/NS 500 MG/250 ML 500 MG/250 ML BAG IV SCH (10:00)
[2021-03-03] MEDS: CITALOPRAM 10 MG TAB PO SCH (11:36)
[2021-03-03] MEDS: amLODIPine 10 MG TAB PO SCH (11:36)
[2021-03-03 11:37] LABS: Calcium 9.2 mg/dL (8.4-10.2)
[2021-03-03] MEDS: CLOPIDOGREL 75 MG TAB PO SCH (11:38)
[2021-03-03] MEDS: PANTOPRAZOLE 40 MG TAB PO SCH (11:38)
[2021-03-03] MEDS: cefTRIAXone/NS 1 GM/50 ML 1 GM/50 ML BAG IV SCH ×2 (11:38→22:24)
[2021-03-03] MEDS: ASPIRIN 325 MG TAB PO SCH (11:38)
[2021-03-03] MEDS: METOPROLOL TARTRATE 25 MG TAB PO SCH ×2 (11:38→22:25)
[2021-03-03 12:09] LABS: Bilirubin,Urine NEG (Negative); Blood,Urine NEG (Negative); Color,Urine Yellow (Yellow); Hyaline Casts,Urine 1 /LPF; Mucus,Urine FEW /HPF; Urobilinogen,Urine < 2.0 mg/dL (<2.0)
--- NOTE | 2021-03-03 13:01 | Nuclear Medicine Report ---
NUCLEAR MEDICINE PERFUSION SCAN INDICATION: Shortness of breath, possible pulmonary embolus CORRELATION: AP chest performed 03/02/2021 RADIOPHARMACEUTICAL: Perfusion: 5.1 mCi Tc-99m MAA given IV FINDINGS: Perfusion images show symmetric and uniform radiotracer distribution throughout bilateral lung zones with no evidence of \segmental perfusion defects. Normal cardiac silhouette. IMPRESSION: Low probability perfusion scan for pulmonary embolism. Signer Name: Henok Liz Jr, MD Signed: 03/03/2021 12:56 PM Workstation Name: [id number]
--- NOTE | 2021-03-03 13:41 | Consultation ---
History of Present Illness Consult date: 03/03/21 Reason for consult: dyspnea, hypoxemia History of present illness: This is an 89-year-old female presented to the ER with a complaint of upper a bdominal pain. She indicates the pain is in the epigastric and right upper quadrant region. She states the pain has been there for about a month. She indicates it does not move anywhere. She saw her optical lens manufacturing tech, who reportedly ordered blood work, but she is not quite sure what other inte rventions have been recommended. She denies headache, neck pain, chest pain. She has no lower abdominal pain. She denies urinary symptoms. She has lower extremity edema which she thinks is constant, and she has chronic shortness of breath. She does not believe she has had loss of taste or smell. She does not believe she has had hematemesis, bright red blood per rectum, or melena. Patient has history of CHF, cardiac stents, HTN, Hyperlipidemia, GERD and patient is on Home o2. Patient denies smoking, alcohol or drug abuse. 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 No known drug allergies. Patient alert, awake and resting on High flow O2, Vapotherm,FIO2 50%. O2 saturation 94%. Patient afebrile. No leukocytosis. Chest xray done 03/02/21 reported Pulmonary vascular congestion with cardiomegaly. Nonspecific right basilar parenchymal disease possibly representing atelectasis. Clinical correlation recommended. Perfusion lung scan done on 03/03/21 reported low probability perfusion scan for pulmonary embolism. Patient is on ceftriaxone, Zithromax, I/V Solumedrol, S/C Heparin, Protonix, Albuterol inhaler Past History Past Medical History: CAD, GERD, heart failure, hypertension Social history: denies: smoking, alcohol abuse, prescription drug abuse, IV drug use Medications and Allergies Allergies Allergy/AdvReac Type Severity Reaction Status Date / Time No Known Allergies Allergy Verified 08/04/14 12:40 Home Medications Medication Instructions Recorded Confirmed Last Taken Type Omeprazole 1 cap PO DAILY 08/04/14 03/31/20 11/26/18 History Aspirin 325 mg PO QDAY #30 tablet 04/08/15 03/31/20 11/26/18 Rx AtorvaSTATin [Lipitor] 20 mg PO QHS #30 tablet 04/08/15 03/31/20 11/26/18 Rx Citalopram [celeXA] 10 mg PO DAILY #30 tablet 04/08/15 03/31/20 11/26/18 Rx Clopidogrel [Plavix] 75 mg PO QDAY #30 tablet 04/08/15 03/31/20 11/26/18 Rx Metoprolol [Lopressor TAB] 25 mg PO BID #60 tablet 04/08/15 03/31/20 11/26/18 Rx lisinopriL [Zestril TAB] 20 mg PO QDAY #30 tablet 04/08/15 03/31/20 11/26/18 Rx amLODIPine 10 mg PO QDAY #30 tablet 04/07/20 Unknown Rx dexAMETHasone [Decadron] 6 mg PO DAILY #4 tablet 04/07/20 Unknown Rx Active Meds: Active Medications Albuterol (Albuterol 2.5 Mg/3 Ml Nebu) 2.5 mg IH Q4HRT PRN PRN Reason: Shortness Of Breath Amlodipine Besylate (Amlodipine 10 Mg Tab) 10 mg PO QDAY [facility] [place] Last Admin: 03/03/21 11:36 Dose: 10 mg Documented by: Aspirin (Aspirin 325 Mg Tab) 325 mg PO QDAY [facility] [place] Last Admin: 03/03/21 11:38 Dose: 325 mg Documented by: Atorvastatin Calcium (Atorvastatin 20 Mg Tab) 20 mg PO QHS [facility] [place] Last Admin: 03/02/21 22:33 Dose: 20 mg Documented by: Citalopram Hydrobromide (Citalopram 10 Mg Tab) 10 mg PO DAILY [facility] [place] Last Admin: 03/03/21 11:36 Dose: 10 mg Documented by: Clopidogrel Bisulfate (Clopidogrel 75 Mg Tab) 75 mg PO QDAY [facility] [place] Last Admin: 03/03/21 11:38 Dose: 75 mg Documented by: Furosemide (Furosemide 40 Mg/4 Ml Inj) 40 mg IV 0600,1800 [facility] [place] Last Admin: 03/03/21 06:49 Dose: 40 mg Documented by: Heparin Sodium (Porcine) (Heparin 5,000 Unit/1 Ml Vial) 5,000 unit SUB-Q Q8HR [facility] [place] Last Admin: 03/03/21 06:48 Dose: 5,000 unit Documented by: Azithromycin (Zithromax/Ns) 500 mg in 250 mls @ 250 mls/hr IV Q24H [facility] [place] Last Admin: 03/03/21 11:35 Dose: 250 mls/hr Documented by: Ceftriaxone Sodium (Rocephin/Ns 1 Gm/50 Ml) 1 gm in 50 mls @ 100 mls/hr IV Q12H [facility] [place]; Protocol Last Admin: 03/03/21 11:38 Dose: 100 mls/hr Documented by: Methylprednisolone Sodium Succinate (Methylprednisolone Sod Succinate 40 Mg/1 Ml Inj) 40 mg IV Q8HR [facility] [place] Last Admin: 03/03/21 06:49 Dose: 40 mg Documented by: Metoprolol Tartrate (Metoprolol Tartrate 25 Mg Tab) 25 mg PO BID [facility] [place] Last Admin: 03/03/21 11:38 Dose: 25 mg Documented by: Pantoprazole Sodium (Pantoprazole 40 Mg Tab) 40 mg PO DAILY [facility] [place] Last Admin: 03/03/21 11:38 Dose: 40 mg Documented by: Review of Systems All systems: negative Physical Examination Vital signs: Vital Signs Temp Pulse Resp BP Pulse Ox 97.8 F 77 18 142/66 95 03/02/21 02:07 03/02/21 02:07 03/02/21 02:07 03/02/21 02:07 03/02/21 02:07 General appearance: no acute distress, alert Eyes: non-icteric ENT: oropharynx moist Neck: supple, no JVD Ascultation: Bilateral: diminished breath sounds Cardiovascular: regular rate and rhythm Gastrointestinal: normoactive bowel sounds, soft, non-tender Integumentary: normal Extremities: no cyanosis, no edema Musculoskeletal: no deformities Gait: other (Patient is in the bed. Can not assess now.) normal mental status, non-focal exam, pupils equal and round depressed Results - Laboratory Findings CBC and BMP: 03/02/21 04:56 03/03/21 10:38 Abnormal lab findings: Abnormal Labs 03/02/21 03/02/21 03/02/21 04:56 04:56 04:56 RBC 3.19 L MCV 98 H MCH 33 H RDW 15.7 H [place] % (Auto) 10.3 H BUN 27 H Creatinine 1.6 H Glucose 105 H AST 41 H NT-Pro-B Natriuret Pep 4601 H 03/03/21 10:38 RBC MCV MCH RDW [place] % (Auto) BUN 30 H Creatinine 1.7 H Glucose 148 H AST NT-Pro-B Natriuret Pep - Diagnostic Findings Chest x-ray: report reviewed, image reviewed Additional studies: CHEST 1 VIEW 03/02/21 INDICATION / CLINICAL INFORMATION: Sob. COMPARISON: 03/30/2020 FINDINGS: SUPPORT DEVICES: None. HEART / MEDIASTINUM: Stable cardiomegaly. LUNGS / PLEURA: There is pulmonary vascular congestion. Additionally there is pulmonary opacity in the right lung base, nonspecific possibly representing atelectasis or pneumonia. No large pleural effusion noted. No pneumothorax. ADDITIONAL FINDINGS: No significant additional findings. IMPRESSION: 1. Pulmonary vascular congestion with cardiomegaly. 2. Nonspecific right basilar parenchymal disease possibly representing atelectasis. Clinical correlation recommended. NUCLEAR MEDICINE PERFUSION SCAN 03/03/21 INDICATION: Shortness of breath, possible pulmonary embolus CORRELATION: AP chest performed 03/02/2021 RADIOPHARMACEUTICAL: Perfusion: 5.1 mCi Tc-99m MAA given IV FINDINGS: Perfusion images show symmetric and uniform radiotracer distribution throughout bilateral lung zones with no evidence of segmental perfusion defects. Normal cardiac silhouett e. IMPRESSION: Low probability perfusion scan for pulmonary embolism. Assessment and Plan This is an 89-year-old female presented to the ER with a complaint of upper abdominal pain. She indicates the pain is in the epigastric and right upper quadrant region. She states the pain has been there for about a month. She indicates it does not move anywhere. She saw her optical lens manufacturing tech, who reportedly ordered blood work, but she is not quite sure what other interventions have been recommended. She denies headache, neck pain, chest pain. She has no lower abdominal pain. She denies urinary symptoms. She has lower extremity edema which she thinks is constant, and she has chronic shortness of breath. She does not believe she has had loss of taste or smell. She does not believe she has had hematemesis, bright red blood per rectum, or melena. Patient has history of CHF, cardiac stents, HTN, Hyperlipidemia, GERD and patient is on Home o2. Patient denies smoking, alcohol or drug abuse. 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 No known drug allergies. Patient alert, awake and resting on High flow O2, Vapotherm,FIO2 50%. O2 saturation 94%. Patient afebrile. No leukocytosis. Chest xray done 03/02/21 reported Pulmonary vascular congestion with cardiomegaly. Nonspecific right basilar parenchymal disease possibly representing atelectasis. Clinical correlation recommended. Perfusion lung scan done on 03/03/21 reported low probability perfusion scan for pulmonary embolism. Patient is on ceftriaxone, Zithromax, I/V Solumedrol, S/C Heparin, Protonix, Albuterol inhaler - Patient Problems (1) Respiratory failure Current Visit: No Status: Acute Qualifiers: Chronicity: acute Respiratory failure complication: hypoxia Qualified Code(s): J96.01 - Acute respiratory failure with hypoxia Plan to address problem: Patient is on Vapotherm, FIO2 50% I/V solumedrol Albuterol inhaler S/C Heparin Protonix. (2) SIRS (systemic inflammatory response syndrome) Current Visit: No Status: Acute Plan to address problem: Patient is on ceftrioxane and zithromax. (3) CHF (congestive heart failure) Current Visit: Yes Status: Acute Qualifiers: Plan to address problem: Management as per cardiology. (4) Renal insufficiency Current Visit: Yes Status: Acute Plan to address problem: Management as per primary and nephrology. (5) Upper abdominal pain Current Visit: Yes Status: Acute Plan to address problem: General surgery consulted. (6) NSTEMI (non-ST elevated myocardial infarction) Current Visit: No Status: Acute Plan to address problem: Management as per cardiology. (7) Hypertension Current Visit: No Status: Chronic Qualifiers: Hypertension type: essential hypertension Qualified Code(s): I10 - Essential (primary) hypertension Plan to address problem: Management as per primary care.
--- NOTE | 2021-03-03 15:05 | Progress Note ---
Assessment and Plan The patient is an 89-year-old female with history of COVID-19 infection on 2019, possible COPD on 2 to 3 L home O2, morbid obesity, hypertension hyperlipidemia GERD who presented to the ER with a complaint of upper abdominal pain and worsen ing shortness of breath. Acute on chronic respiratory failure respiratory failure -Likely due to underlying COPD/chf exacerbation, right lower lobe pneumonia versus post Covid pulmonary fibrosis -cont scheduled nebulizer breathing treatment and as needed -cont Lasix for possible CHF exacerbation - cont empiric steroid and antibiotic - CXR showed pulmonary vascular congestion and possible right basilar infiltrate - s/p BiPAP. Provide supplemental oxygen to keep oxygen saturation above 92% - Consider to consult pulmonary if no improvement in next 24 hours Possible new onset CHF exacerbation with preserved EF -Continue Lasix, monitor ins and outs and daily weight -2D echocardiogram showed EF 50 to 55% Right lower lobe pneumonia, continue empiric antibiotic, nebulizer breathing treatment as needed COVID-19 PUI, patient does not want to get tested. She stated that she has been tested twice recently and she was negative -Continue to monitor clinically. Abdominal pain, likely due to underlying GERD or gallbladder pathology -Continue to monitor LFT, continue PPI and consulted general surgery will follow recommendation Lower extremity swelling -Likely due to venous insufficiency versus underlying CHF -Continue Lasix for now monitor ins and outs GRAY, likely due to vasomotor nephropathy -Monitor BMP, will consult nephrology if no improvement Coronary artery disease, will resume her home meds History of COVID-19 -Continue supportive care, patient did not receive COVID-19 vaccine -She was tested positive on 03/31/2020 -She tested negative recently, she is refusing further testing Advanced age, supportive care Debility, PT eval: Clinically stable - Provide DVT prophylaxis with Lovenox. Daily clinical course: 03/03/21; patient off BiPAP today, maintaining oxygenation with 5 to 8 L nasal cannula. Pulmonary VQ scan showed low probability for PE. Abdominal pelvis suggestive for gallbladder sludge, consulted general surgery will follow recommendation. Patient clinically feels better but still complaining of epigastric pain. 2D echo showed preserved EF. Creatinine 1.7 today. We will change IV Lasix to p.o. acute respiratory failure will be also due to acute bronchospasm. Pulmonary consulted will follow recommendation. Subjective Date of service: 03/03/21 Interval history: Patient seen and examined. Medical records and medication list reviewed. No acute event overnight noted by the RN. Patient continued to complains of difficulty breathing and epigastric pain Discussed plan of care at bedside with patient. Objective - Exam Narrative Exam: General appearance: Present: mild distress, obese - EENT Eyes: Present: PERRL ENT: hearing intact, clear oral mucosa - Neck Neck: Present: supple, normal ROM - Respiratory Respiratory effort: Labored, on n/c Respiratory: bilateral: diminished, rhonchi - Cardiovascular Heart Sounds: Present: S1 & S2. Absent: rub, click - Extremities Extremity abnormal: edema Peripheral Pulses: within normal limits - Abdominal General gastrointestinal: Present: soft, non-tender, non-distended, normal bowel sounds Female genitourinary: Present: normal - Integumentary Integumentary: Present: clear, warm, dry - Musculoskeletal Musculoskeletal: gait normal, strength equal bilaterally - Psychiatric Psychiatric: appropriate mood/affect, intact judgment & insight - Neurologic Neurologic: CNII-XII intact, moves all extremities - Constitutional Vitals: Vital Signs - 12hr 03/03/21 03/03/21 03/03/21 03:14 03:32 07:50 Temperature 97.3 F L 98.8 F Pulse Rate 63 86 76 Respiratory 18 19 18 Rate Blood Pressure 122/55 136/69 O2 Sat by Pulse 91 100 100 Oximetry 03/03/21 03/03/21 03/03/21 09:15 09:20 11:21 Temperature 98.6 F Pulse Rate 81 Respiratory 18 Rate Blood Pressure 140/71 O2 Sat by Pulse 100 98 94 Oximetry 03/03/21 03/03/21 03/03/21 11:36 11:38 13:10 Temperature Pulse Rate 81 81 Respiratory Rate Blood Pressure O2 Sat by Pulse 97 Oximetry 03/03/21 14:50 Temperature Pulse Rate Respiratory Rate Blood Pressure O2 Sat by Pulse 99 Oximetry - Labs CBC & Chem 7: 03/02/21 04:56 03/05/21 13:27 Labs: Abnormal lab results 03/03/21 Range/Units 10:38 BUN 30 H (7-17) mg/dL Creatinine 1.7 H (0.6-1.2) mg/dL Glucose 148 H (65-100) mg/dL HEART Score - HEART Score Troponin: Troponin T < 0.010 ng/mL (0.00-0.029) 03/02/21 04:56
--- NOTE | 2021-03-03 19:35 | Consultation ---
History of Present Illness Consult date: 03/03/21 Reason for consult: abdominal pain Chief complaint: abd pain - History of present illness History of present illness: 89-year-old female with a past medical history of CHF, CAD with stents, lung disease on home O2 who presents to the emergency room with complaints of epigastric abdominal pain. Patient states the pain has been ongoing for 1 month. The pain sometimes radiates to the right upper quadrant and sometimes can feel like a burning in the chest. It is a feeling of dull/heaviness at times, worsened when she overeats. Particular foods do not exacerbate the pain. She states she also has a history of reflux but she has not been taking antireflux medications for the last 10 years. She states that when she was taking the antireflux medications her symptoms were controlled. She denies n ausea, vomiting, constipation, diarrhea. She is able to tolerate a diet without difficulty. No fevers or chills. Past History Past Medical History: CAD, COPD (On home O2), GERD, heart failure, hypertension, hyperlipidemia Past Surgical History: No surgical history Social history: no significant social history Family history: no significant family history Medications and Allergies Allergies Allergy/AdvReac Type Severity Reaction Status Date / Time No Known Allergies Allergy Verified 08/04/14 12:40 Home Medications Medication Instructions Recorded Confirmed Last Taken Type Omeprazole 1 cap PO DAILY 08/04/14 03/31/20 11/26/18 History Aspirin 325 mg PO QDAY #30 tablet 04/08/15 03/31/20 11/26/18 Rx AtorvaSTATin [Lipitor] 20 mg PO QHS #30 tablet 04/08/15 03/31/20 11/26/18 Rx Citalopram [celeXA] 10 mg PO DAILY #30 tablet 04/08/15 03/31/20 11/26/18 Rx Clopidogrel [Plavix] 75 mg PO QDAY #30 tablet 04/08/15 03/31/20 11/26/18 Rx Metoprolol [Lopressor TAB] 25 mg PO BID #60 tablet 04/08/15 03/31/20 11/26/18 Rx lisinopriL [Zestril TAB] 20 mg PO QDAY #30 tablet 04/08/15 03/31/20 11/26/18 Rx amLODIPine 10 mg PO QDAY #30 tablet 04/07/20 Unknown Rx dexAMETHasone [Decadron] 6 mg PO DAILY #4 tablet 04/07/20 Unknown Rx Active Meds: Active Medications Albuterol (Albuterol 2.5 Mg/3 Ml Nebu) 2.5 mg IH Q4HRT PRN PRN Reason: Shortness Of Breath Amlodipine Besylate (Amlodipine 10 Mg Tab) 10 mg PO QDAY [facility] Last Admin: 03/03/21 11:36 Dose: 10 mg Documented by: Aspirin (Aspirin 325 Mg Tab) 325 mg PO QDAY [facility] Last Admin: 03/03/21 11:38 Dose: 325 mg Documented by: Atorvastatin Calcium (Atorvastatin 20 Mg Tab) 20 mg PO QHS [facility] Last Admin: 03/02/21 22:33 Dose: 20 mg Documented by: Citalopram Hydrobromide (Citalopram 10 Mg Tab) 10 mg PO DAILY [facility] Last Admin: 03/03/21 11:36 Dose: 10 mg Documented by: Clopidogrel Bisulfate (Clopidogrel 75 Mg Tab) 75 mg PO QDAY [facility] Last Admin: 03/03/21 11:38 Dose: 75 mg Documented by: Furosemide (Furosemide 20 Mg Tab) 20 mg PO QDAY [facility] Heparin Sodium (Porcine) (Heparin 5,000 Unit/1 Ml Vial) 5,000 unit SUB-Q Q8HR [facility] Last Admin: 03/03/21 19:01 Dose: 5,000 unit Documented by: Azithromycin (Zithromax/Ns) 500 mg in 250 mls @ 250 mls/hr IV Q24H [facility] Last Admin: 03/03/21 11:35 Dose: 250 mls/hr Documented by: Ceftriaxone Sodium (Rocephin/Ns 1 Gm/50 Ml) 1 gm in 50 mls @ 100 mls/hr IV Q12H [facility]; Protocol Last Admin: 03/03/21 11:38 Dose: 100 mls/hr Documented by: Methylprednisolone Sodium Succinate (Methylprednisolone Sod Succinate 40 Mg/1 Ml Inj) 40 mg IV Q8HR [facility] Last Admin: 03/03/21 19:01 Dose: 40 mg Documented by: Metoprolol Tartrate (Metoprolol Tartrate 25 Mg Tab) 25 mg PO BID [facility] Last Admin: 03/03/21 11:38 Dose: 25 mg Documented by: Pantoprazole Sodium (Pantoprazole 40 Mg Tab) 40 mg PO DAILY [facility] Last Admin: 03/03/21 11:38 Dose: 40 mg Documented by: Review of Systems All systems: negative (10 point ROS performed and negative except for that listed in HPI) Exam Vital Signs Temp Pulse Resp BP Pulse Ox 97.8 F 77 18 142/66 95 03/02/21 02:07 03/02/21 02:07 03/02/21 02:07 03/02/21 02:07 03/02/21 02:07 Narrative exam: Gen.: Awake, alert, oriented x3. No apparent distress ENT: Trachea midline. No lymphadenopathy. No scleral icterus or conjunctival pallor CV: S1, S2 present Respiratory: No audible wheezes Abdomen: Soft, mild discomfort on palpation of the epigastrium. Nondistended. No rebound, rigidity, guarding Extremities: No clubbing, cyanosis, edema Results - Labs 03/02/21 04:56 03/03/21 10:38 Abnormal lab results 03/03/21 Range/Units 10:38 BUN 30 H (7-17) mg/dL Creatinine 1.7 H (0.6-1.2) mg/dL Glucose 148 H (65-100) mg/dL Diabetes panel 03/03/21 Range/Units 10:38 Sodium 143 (137-145) mmol/L Potassium 3.9 (3.6-5.0) mmol/L Chloride 98.7 (98-107) mmol/L Carbon Dioxide 28 (22-30) mmol/L BUN 30 H (7-17) mg/dL Creatinine 1.7 H (0.6-1.2) mg/dL Glucose 148 H (65-100) mg/dL Calcium 9.2 (8.4-10.2) mg/dL Calcium panel 03/03/21 Range/Units 10:38 Calcium 9.2 (8.4-10.2) mg/dL Pituitary panel 03/03/21 Range/Units 10:38 Sodium 143 (137-145) mmol/L Potassium 3.9 (3.6-5.0) mmol/L Chloride 98.7 (98-107) mmol/L Carbon Dioxide 28 (22-30) mmol/L BUN 30 H (7-17) mg/dL Creatinine 1.7 H (0.6-1.2) mg/dL Glucose 148 H (65-100) mg/dL Calcium 9.2 (8.4-10.2) mg/dL Adrenal panel 03/03/21 Range/Units 10:38 Sodium 143 (137-145) mmol/L Potassium 3.9 (3.6-5.0) mmol/L Chloride 98.7 (98-107) mmol/L Carbon Dioxide 28 (22-30) mmol/L BUN 30 H (7-17) mg/dL Creatinine 1.7 H (0.6-1.2) mg/dL Glucose 148 H (65-100) mg/dL Calcium 9.2 (8.4-10.2) mg/dL - Imaging CT scan - abdomen: report reviewed, image reviewed CT scan - pelvis: report reviewed, image reviewed US - abdomen: report reviewed, image reviewed Assessment and Plan 89-year-old female with epigastric abdominal pain Patient is stable. She is tolerating a diet without nausea or vomiting. She is afebrile with a normal white count and LFTs. CT scan of the abdomen and pelvis and right upper quadrant ultrasound showed a gallbladder with mild sludge, no evidence of acute cholecystitis. Plan: 1. Low fat, cardiac diet. Recommend small portions throughout day and protein supplementations 2. PPI 3. actigall 4. prn pain control 5. Patient's abdominal pain is likely related to underlying GERD and less likely gallbladder sludge. Patient is high risk for abdominal surgery due to advanced age, acute on chronic medical issues such as CHF, CAD, lung disease. At this point I recommend treating conservatively as above. I discussed this in detail with the patient and her son at the bedside. They are are agreeable and would prefer to avoid surgery if possible. No acute surgical intervention recommended. 6. Patient may follow-up with GI as outpatient Thank you for this consultation. Please call with any questions or concerns. Evaluation and treatment of this patient was during the time of the national and state emergency arising from COVID19 coronavirus pandemic. Treatment and procedures performed meet the current and available best practice and guidelines for patient during the COVID pandemic.
[2021-03-04 05:23] LABS: Calcium 8.9 mg/dL (8.4-10.2)
[2021-03-04] MEDS: methylPREDNISolone Sod Succinate 40 MG/1 ML INJ IV SCH ×3 (06:18→22:01)
[2021-03-04] MEDS: HEPARIN 5,000 UNIT/1 ML VIAL SUB-Q SCH ×3 (06:18→22:01)
[2021-03-04] MEDS: URSODIOL NICU 50 MG/ML ORAL LIQD DILUTION PO SCH ×3 (06:19→22:23)
[2021-03-04] MEDS ORDERED: URSODIOL 250 MG TAB PO SCH (08:00)
[2021-03-04] MEDS: amLODIPine 10 MG TAB PO SCH (09:51)
[2021-03-04] MEDS: ASPIRIN 325 MG TAB PO SCH (09:51)
[2021-03-04] MEDS: CITALOPRAM 10 MG TAB PO SCH (09:52)
[2021-03-04] MEDS: METOPROLOL TARTRATE 25 MG TAB PO SCH ×2 (09:52→22:01)
[2021-03-04] MEDS: AZITHROMYCIN 250 MG TAB PO SCH (09:53)
[2021-03-04] MEDS: CLOPIDOGREL 75 MG TAB PO SCH (09:55)
[2021-03-04] MEDS: FUROSEMIDE 20 MG TAB PO SCH (09:55)
[2021-03-04] MEDS: PANTOPRAZOLE 40 MG TAB PO SCH (09:55)
--- NOTE | 2021-03-04 10:25 | XRay Report ---
CHEST 1 VIEW INDICATION: sob COMPARISON: 03/02/2021 FINDINGS: Support devices: None Heart: Stable. Lungs/Pleura: Right basilar atelectasis has resolved. No acute disease on today's exam. IMPRESSION: 1. No acute disease. Signer Name: Aguilar Mcdonald MD Signed: 03/04/2021 10:21 AM Workstation Name: [email or web address]
--- NOTE | 2021-03-04 16:26 | Progress Note ---
Assessment and Plan Acute Hypoxemic Respiratory failure SIRS NSTEMI CHF GRAY Upper abdominal pain Hypertension - wean supplemental oxygen to keep O2 sats > 90% - gentle diuresis re: CHF - Bronchodilators (RADHA) with pulm hygiene per RT - continue systemic steroids with slow taper - continue to avoid nephrotoxins, renally dose all medications - mobility protocols to prevent pressure ulcers - PT/OT as tolerated - Wound care per RN/WCT - accuchecks with glycemic control per SSI for target blood glucose < 180 mg/dL - home oxygen evaluation at discharge - GI & VTE prophylaxis - Flu & pneumovax per protocol - Pulmonary out patient follow up for PFTs and optimization of respiratory status - continue other care per attending / other consultants - prn analgesia per pain score ... re-evaluate in am & prn Subjective Date of service: 03/04/21 Principal diagnosis: Ac. Hypoxemic Resp failure; SIRS; NSTEMI; CHF ; GRAY; HTN; Abdominal pain Interval history: Patient is seen today for: Acute Hypoxemic Respiratory failure; SIRS; NSTEMI; CHF ; GRAY; HTN; Upper abdominal pain Seen and examined at bedside; 24hour events reviewed; nursing and respiratory care staff consulted; no adverse overnight events reported to me; resting peacefully in bed; remains on supplemental oxygen at 4L flow (home baseline 3.5L/min); denies chest pain or SOB at rest Objective Vital Signs - 12hr 03/04/21 03/04/21 03/04/21 08:28 09:00 09:18 Temperature 97.8 F Pulse Rate 77 Respiratory 20 Rate Respiratory 18 Rate [Abdomen] Blood Pressure 156/74 O2 Sat by Pulse 97 97 Oximetry 03/04/21 03/04/21 03/04/21 09:51 09:52 10:00 Temperature Pulse Rate 98 H 99 H 72 Respiratory Rate Respiratory Rate [Abdomen] Blood Pressure O2 Sat by Pulse Oximetry 03/04/21 11:35 Temperature 98.4 F Pulse Rate 81 Respiratory 20 Rate Respiratory Rate [Abdomen] Blood Pressure 156/80 O2 Sat by Pulse 96 Oximetry Constitutional: no acute distress, alert, other (elderly obese female with mildly increased respiratory effort at rest) Eyes: non-icteric ENT: oropharynx moist Neck: supple, no JVD Ascultation: Bilateral: diminished breath sounds Cardiovascular: regular rate and rhythm Gastrointestinal: normoactive bowel sounds, soft, non-tender, non-distended Integumentary: normal Extremities: no cyanosis, no edema, pulses normal, no ischemia or petechiae Neurologic: normal mental status, non-focal exam, pupils equal and round, motor strength normal and Psychiatric: mood appropriate, affect normal CBC and BMP: 03/02/21 04:56 03/05/21 13:27 Abnormal lab findings: Abnormal Labs 03/02/21 03/02/21 03/02/21 04:56 04:56 04:56 RBC 3.19 L MCV 98 H MCH 33 H RDW 15.7 H [place] % (Auto) 10.3 H BUN 27 H Creatinine 1.6 H Glucose 105 H AST 41 H NT-Pro-B Natriuret Pep 4601 H 03/03/21 03/04/21 10:38 04:13 RBC MCV MCH RDW [place] % (Auto) BUN 30 H 38 H Creatinine 1.7 H 1.7 H Glucose 148 H 153 H AST NT-Pro-B Natriuret Pep Chest x-ray: image reviewed (stable CXR with hyperinflation and chronic changes) Allied health notes reviewed: nursing
--- NOTE | 2021-03-04 16:47 | Progress Note ---
Assessment and Plan The patient is an 89-year-old female with history of COVID-19 infection on 2019, possible COPD on 2 to 3 L home O2, morbid obesity, hypertension hyperlipidemia GERD who presented to the ER with a complaint of upper abdominal pain and worsen ing shortness of breath. Acute on chronic respiratory failure respiratory failure -Likely due to underlying COPD/chf exacerbation, right lower lobe pneumonia versus post Covid pulmonary fibrosis -cont scheduled nebulizer breathing treatment and as needed -cont Lasix for possible CHF exacerbation - cont empiric steroid and antibiotic - CXR showed pulmonary vascular congestion and possible right basilar infiltrate - s/p BiPAP. Provide supplemental oxygen to keep oxygen saturation above 92% - Consider to consult pulmonary if no improvement in next 24 hours Possible new onset CHF exacerbation with preserved EF -Continue Lasix, monitor ins and outs and daily weight -2D echocardiogram showed EF 50 to 55% Right lower lobe pneumonia, continue empiric antibiotic, nebulizer breathing treatment as needed COVID-19 PUI, patient does not want to get tested. She stated that she has been tested twice recently and she was negative -Continue to monitor clinically. Abdominal pain, likely due to underlying GERD -Continue to monitor LFT, continue PPI -CT abdomen pelvis showed no acute pathology -Ultrasound of abdomen showed gallbladder sludge without any sign of cholecystitis -General surgery was consulted and recommended medical management Lower extremity swelling -Likely due to venous insufficiency versus underlying CHF -Continue Lasix for now monitor ins and outs GRAY, likely due to vasomotor nephropathy -Monitor BMP, will consult nephrology if no improvement Coronary artery disease, will resume her home meds History of COVID-19 -Continue supportive care, patient did not receive COVID-19 vaccine -She was tested positive on 03/31/2020 -She tested negative recently, she is refusing further testing Advanced age, supportive care Debility, PT eval: Clinically stable - Provide DVT prophylaxis with Lovenox. Daily clinical course: 03/03/21; patient off BiPAP today, maintaining oxygenation with 5 to 8 L nasal cannula. Pulmonary VQ scan showed low probability for PE. Abdominal pelvis suggestive for gallbladder sludge, consulted general surgery will follow recommendation. Patient clinically feels better but still complaining of epigastric pain. 2D echo showed preserved EF. Creatinine 1.7 today. We will change IV Lasix to p.o. acute respiratory failure will be also due to acute bronchospasm. Pulmonary consulted will follow recommendation. 03/04/21; patient on 15 L high flow O2 today, continue empiric steroid, empiric antibiotics. Pulmonary following. Noted general surgery recommendation for gallbladder sludge: Recommended medical management. Patient's abdominal pain was likely due to peptic ulcer disease/GERD. Continue PPI therapy ambulate from O2 as tolerated. Subjective Date of service: 03/04/21 Principal diagnosis: Ac. Hypoxemic Resp failure; SIRS; NSTEMI; CHF ; GRAY; HTN; Abdominal pain Interval history: Patient seen and examined. Medical records and medication list reviewed. No acute event overnight noted by the RN. Patient continued to complains of difficulty breathing and epigastric pain Discussed plan of care at bedside with patient. Objective - Exam Narrative Exam: General appearance: Present: mild distress, obese - EENT Eyes: Present: PERRL ENT: hearing intact, clear oral mucosa - Neck Neck: Present: supple, normal ROM - Respiratory Respiratory effort: Labored, on n/c Respiratory: bilateral: diminished, rhonchi - Cardiovascular Heart Sounds: Present: S1 & S2. Absent: rub, click - Extremities Extremity abnormal: edema Peripheral Pulses: within normal limits - Abdominal General gastrointestinal: Present: soft, non-tender, non-distended, normal bowel sounds Female genitourinary: Present: normal - Integumentary Integumentary: Present: clear, warm, dry - Musculoskeletal Musculoskeletal: gait normal, strength equal bilaterally - Psychiatric Psychiatric: appropriate mood/affect, intact judgment & insight - Neurologic Neurologic: CNII-XII intact, moves all extremities - Constitutional Vitals: Vital Signs - 12hr 03/04/21 03/04/21 03/04/21 08:28 09:00 09:18 Temperature 97.8 F Pulse Rate 77 Respiratory 20 Rate Respiratory 18 Rate [Abdomen] Blood Pressure 156/74 O2 Sat by Pulse 97 97 Oximetry 03/04/21 03/04/21 03/04/21 09:51 09:52 10:00 Temperature Pulse Rate 98 H 99 H 72 Respiratory Rate Respiratory Rate [Abdomen] Blood Pressure O2 Sat by Pulse Oximetry 03/04/21 11:35 Temperature 98.4 F Pulse Rate 81 Respiratory 20 Rate Respiratory Rate [Abdomen] Blood Pressure 156/80 O2 Sat by Pulse 96 Oximetry - Labs CBC & Chem 7: 03/02/21 04:56 03/05/21 13:27 Labs: Abnormal lab results 03/04/21 Range/Units 04:13 BUN 38 H (7-17) mg/dL Creatinine 1.7 H (0.6-1.2) mg/dL Glucose 153 H (65-100) mg/dL HEART Score - HEART Score Troponin: Troponin T < 0.010 ng/mL (0.00-0.029) 03/02/21 04:56
[2021-03-04] MEDS ORDERED: methylPREDNISolone Sod Succinate 40 MG/1 ML INJ IV SCH (22:00)
[2021-03-04] MEDS: cefTRIAXone/NS 2 GM/100 ML 2 GM/100 ML BAG IV SCH (22:01)
[2021-03-05] MEDS: methylPREDNISolone Sod Succinate 40 MG/1 ML INJ IV SCH ×3 (05:31→17:07)
[2021-03-05] MEDS: HEPARIN 5,000 UNIT/1 ML VIAL SUB-Q SCH ×3 (05:31→21:26)
[2021-03-05] MEDS: PANTOPRAZOLE 40 MG TAB PO SCH (11:11)
[2021-03-05] MEDS: FUROSEMIDE 20 MG TAB PO SCH (11:11)
[2021-03-05] MEDS: amLODIPine 10 MG TAB PO SCH (11:11)
[2021-03-05] MEDS: ASPIRIN 325 MG TAB PO SCH (11:11)
[2021-03-05] MEDS: METOPROLOL TARTRATE 25 MG TAB PO SCH ×2 (11:11→21:25)
[2021-03-05] MEDS: CITALOPRAM 10 MG TAB PO SCH (11:11)
[2021-03-05] MEDS: AZITHROMYCIN 250 MG TAB PO SCH (11:11)
[2021-03-05] MEDS: CLOPIDOGREL 75 MG TAB PO SCH (11:11)
[2021-03-05 14:23] LABS: Calcium 9.2 mg/dL (8.4-10.2)
--- NOTE | 2021-03-05 14:27 | Progress Note ---
Assessment and Plan Acute Hypoxemic Respiratory failure SIRS NSTEMI CHF GRAY Upper abdominal pain Hypertension - wean supplemental oxygen to keep O2 sats > 90% - gentle diuresis re: CHF - Bronchodilators (RADHA) with pulm hygiene per RT - continue systemic steroids with slow taper - continue to avoid nephrotoxins, renally dose all medications - mobility protocols to prevent pressure ulcers - PT/OT as tolerated - Wound care per RN/WCT - accuchecks with glycemic control per SSI for target blood glucose < 180 mg/dL - home oxygen evaluation at discharge - GI & VTE prophylaxis - Flu & pneumovax per protocol - Pulmonary out patient follow up for PFTs and optimization of respiratory status - continue other care per attending / other consultants - prn analgesia per pain score ... re-evaluate in am & prn Subjective Date of service: 03/05/21 Principal diagnosis: Ac. Hypoxemic Resp failure; SIRS; NSTEMI; CHF ; GRAY; HTN; Abdominal pain Interval history: Patient is seen today for: Acute Hypoxemic Respiratory failure; SIRS; NSTEMI; CHF ; GRAY; HTN; Upper abdominal pain Seen and examined at bedside; 24hour events reviewed; nursing and respiratory care staff consulted; no adverse overnight events reported to me; resting peacefully in bed; remains on supplemental oxygen at 4L flow (home baseline 3.5L/min); feels like she is not back to baseline yet; no hemoptysis; denies N/V/F/C Objective Vital Signs - 12hr 03/05/21 03/05/21 03/05/21 02:30 04:10 07:42 Temperature 98.6 F 98.6 F Pulse Rate 74 74 Respiratory 22 18 Rate Blood Pressure 153/78 170/83 O2 Sat by Pulse 96 95 94 Oximetry 03/05/21 03/05/21 10:00 10:22 Temperature Pulse Rate 67 Respiratory Rate Blood Pressure O2 Sat by Pulse 98 Oximetry Constitutional: no acute distress, alert Eyes: non-icteric ENT: oropharynx moist Neck: supple, no JVD Ascultation: Bilateral: diminished breath sounds Cardiovascular: regular rate and rhythm Gastrointestinal: normoactive bowel sounds, soft, non-tender Integumentary: normal Extremities: no cyanosis, no edema Neurologic: normal mental status, non-focal exam, pupils equal and round Psychiatric: depressed CBC and BMP: 03/02/21 04:56 03/05/21 13:27 Abnormal lab findings: Abnormal Labs 03/02/21 03/02/21 03/02/21 04:56 04:56 04:56 RBC 3.19 L MCV 98 H MCH 33 H RDW 15.7 H [place] % (Auto) 10.3 H BUN 27 H Creatinine 1.6 H Glucose 105 H POC Glucose AST 41 H NT-Pro-B Natriuret Pep 4601 H 03/03/21 03/04/21 03/05/21 10:38 04:13 07:47 RBC MCV MCH RDW [place] % (Auto) BUN 30 H 38 H Creatinine 1.7 H 1.7 H Glucose 148 H 153 H POC Glucose 124 H AST NT-Pro-B Natriuret Pep 03/05/21 13:27 RBC MCV MCH RDW [place] % (Auto) BUN 44 H Creatinine 1.6 H Glucose 153 H POC Glucose AST NT-Pro-B Natriuret Pep
--- NOTE | 2021-03-05 15:36 | Progress Note ---
Assessment and Plan Acute Hypoxemic Respiratory failure SIRS NSTEMI CHF GRAY Upper abdominal pain Hypertension - add LABA & IBS - taper systremic steroids - ACS w/up per cardiology - continue care as below otherwise; - wean supplemental oxygen to keep O2 sats > 90% - gentle diuresis re: CHF - Bronchodilators (RADHA & LABA) with pulm hygiene per RT - continue to avoid nephrotoxins, renally dose all medications - mobility protocols to prevent pressure ulcers - PT/OT as tolerated - Wound care per RN/WCT - accuchecks with glycemic control per SSI for target blood glucose < 180 mg/dL - home oxygen evaluation at discharge - GI & VTE prophylaxis - Flu & pneumovax per protocol - Pulmonary out patient follow up for PFTs and optimization of respiratory status - continue other care per attending / other consultants - prn analgesia per pain score ... re-evaluate in am & prn Subjective Date of service: 03/05/21 Principal diagnosis: Ac. Hypoxemic Resp failure; SIRS; NSTEMI; CHF ; GRAY; HTN; Abdominal pain Interval history: Patient is seen today for: Acute Hypoxemic Respiratory failure; SIRS; NSTEMI; CHF ; GRAY; HTN; Upper abdominal pain Seen and examined at bedside; 24hour events reviewed; nursing and respiratory care staff consulted; no adverse overnight events reported to me; resting peac efully in bed; remains on supplemental oxygen at 4L flow (home baseline 3.5L/min); feels like she is not back to baseline yet; no hemoptysis; denies N/V/F/C Objective Vital Signs - 12hr 03/05/21 03/05/21 03/05/21 04:10 07:42 10:00 Temperature 98.6 F 98.6 F Pulse Rate 74 74 67 Respiratory 22 18 Rate Blood Pressure 153/78 170/83 O2 Sat by Pulse 95 94 Oximetry 03/05/21 10:22 Temperature Pulse Rate Respiratory Rate Blood Pressure O2 Sat by Pulse 98 Oximetry Constitutional: no acute distress, alert, other (elderly obese female with mildly increased respiratory effort at rest) Eyes: non-icteric ENT: oropharynx moist Neck: supple, no JVD Ascultation: Bilateral: diminished breath sounds, rhonchi (LLL > RLL), other (prolonged expiratory phase) Percussion: Bilateral: not dull Cardiovascular: regular rate and rhythm Gastrointestinal: normoactive bowel sounds, soft, non-tender, non-distended Integumentary: normal Extremities: no cyanosis, no edema, pulses normal, no ischemia or petechiae Neurologic: normal mental status, non-focal exam, pupils equal and round, motor strength normal and Psychiatric: mood appropriate, affect normal CBC and BMP: 03/02/21 04:56 03/05/21 13:27 Abnormal lab findings: Abnormal Labs 03/02/21 03/02/21 03/02/21 04:56 04:56 04:56 RBC 3.19 L MCV 98 H MCH 33 H RDW 15.7 H [place] % (Auto) 10.3 H BUN 27 H Creatinine 1.6 H Glucose 105 H POC Glucose AST 41 H NT-Pro-B Natriuret Pep 4601 H 03/03/21 03/04/21 03/05/21 10:38 04:13 07:47 RBC MCV MCH RDW [place] % (Auto) BUN 30 H 38 H Creatinine 1.7 H 1.7 H Glucose 148 H 153 H POC Glucose 124 H AST NT-Pro-B Natriuret Pep 03/05/21 13:27 RBC MCV MCH RDW [place] % (Auto) BUN 44 H Creatinine 1.6 H Glucose 153 H POC Glucose AST NT-Pro-B Natriuret Pep Allied health notes reviewed: nursing
--- NOTE | 2021-03-05 16:03 | Progress Note ---
Assessment and Plan The patient is an 89-year-old female with history of COVID-19 infection on 2019, possible COPD on 2 to 3 L home O2, morbid obesity, hypertension hyperlipidemia GERD who presented to the ER with a complaint of upper abdominal pain and worsen ing shortness of breath. Acute on chronic respiratory failure respiratory failure -Likely due to underlying COPD/chf exacerbation, right lower lobe pneumonia versus post Covid pulmonary fibrosis -cont scheduled nebulizer breathing treatment and as needed -cont Lasix for possible CHF exacerbation - cont empiric steroid and antibiotic - CXR showed pulmonary vascular congestion and possible right basilar infiltrate - s/p BiPAP. Provide supplemental oxygen to keep oxygen saturation above 92% - Consider to consult pulmonary if no improvement in next 24 hours Possible new onset CHF exacerbation with preserved EF -Continue Lasix, monitor ins and outs and daily weight -2D echocardiogram showed EF 50 to 55% Right lower lobe pneumonia, continue empiric antibiotic, nebulizer breathing treatment as needed COVID-19 PUI, patient does not want to get tested. She stated that she has been tested twice recently and she was negative -Continue to monitor clinically. Abdominal pain, likely due to underlying GERD -Continue to monitor LFT, continue PPI -CT abdomen pelvis showed no acute pathology -Ultrasound of abdomen showed gallbladder sludge without any sign of cholecystitis -General surgery was consulted and recommended medical management Lower extremity swelling -Likely due to venous insufficiency versus underlying CHF -Continue Lasix for now monitor ins and outs GRAY, likely due to vasomotor nephropathy -Monitor BMP, will consult nephrology if no improvement Coronary artery disease, will resume her home meds History of COVID-19 -Continue supportive care, patient did not receive COVID-19 vaccine -She was tested positive on 03/31/2020 -She tested negative recently, she is refusing further testing Advanced age, supportive care Debility, PT eval: Clinically stable - Provide DVT prophylaxis with Lovenox. Daily clinical course: 03/03/21; patient off BiPAP today, maintaining oxygenation with 5 to 8 L nasal cannula. Pulmonary VQ scan showed low probability for PE. Abdominal pelvis suggestive for gallbladder sludge, consulted general surgery will follow recommendation. Patient clinically feels better but still complaining of epigastric pain. 2D echo showed preserved EF. Creatinine 1.7 today. We will change IV Lasix to p.o. acute respiratory failure will be also due to acute bronchospasm. Pulmonary consulted will follow recommendation. 03/04/21; patient on 15 L high flow O2 today, continue empiric steroid, empiric antibiotics. Pulmonary following. Noted general surgery recommendation for gallbladder sludge: Recommended medical management. Patient's abdominal pain was likely due to peptic ulcer disease/GERD. Continue PPI therapy ambulate from O2 as tolerated. 03/05/21: Patient on 5L O2 today, cont to wean off, order for PT eval. creatinine remains stable. Repeat chest x-ray showed no acute process. Subjective Date of service: 03/05/21 Principal diagnosis: Ac. Hypoxemic Resp failure; SIRS; NSTEMI; CHF ; GRAY; HTN; Abdominal pain Interval history: Patient seen and examined. Medical records and medication list reviewed. No acute event overnight noted by the RN. Patient states that her abdominal pain improved and she is tolerating diet without any difficulty Noted to be on 5 L nasal cannula today, Discussed plan of care at bedside with patient. Objective - Exam Narrative Exam: General appearance: Present: mild distress, obese - EENT Eyes: Present: PERRL ENT: hearing intact, clear oral mucosa - Neck Neck: Present: supple, normal ROM - Respiratory Respiratory effort: Labored, on n/c Respiratory: bilateral: diminished, rhonchi - Cardiovascular Heart Sounds: Present: S1 & S2. Absent: rub, click - Extremities Extremity abnormal: edema Peripheral Pulses: within normal limits - Abdominal General gastrointestinal: Present: soft, non-tender, non-distended, normal bowel sounds Female genitourinary: Present: normal - Integumentary Integumentary: Present: clear, warm, dry - Musculoskeletal Musculoskeletal: gait normal, strength equal bilaterally - Psychiatric Psychiatric: appropriate mood/affect, intact judgment & insight - Neurologic Neurologic: CNII-XII intact, moves all extremities - Constitutional Vitals: Vital Signs - 12hr 03/05/21 03/05/21 03/05/21 04:10 07:42 10:00 Temperature 98.6 F 98.6 F Pulse Rate 74 74 67 Respiratory 22 18 Rate Blood Pressure 153/78 170/83 O2 Sat by Pulse 95 94 Oximetry 03/05/21 10:22 Temperature Pulse Rate Respiratory Rate Blood Pressure O2 Sat by Pulse 98 Oximetry - Labs CBC & Chem 7: 03/02/21 04:56 03/05/21 13:27 Labs: Abnormal lab results 03/05/21 03/05/21 Range/Units 07:47 13:27 BUN 44 H (7-17) mg/dL Creatinine 1.6 H (0.6-1.2) mg/dL Glucose 153 H (65-100) mg/dL POC Glucose 124 H (70-105) mg/dL HEART Score - HEART Score Troponin: Troponin T < 0.010 ng/mL (0.00-0.029) 03/02/21 04:56
[2021-03-05] MEDS: URSODIOL NICU 50 MG/ML ORAL LIQD DILUTION PO SCH ×2 (18:18→21:29)
[2021-03-05] MEDS: BUDESONIDE 0.5 MG/2 ML NEBU IH SCH (20:50)
[2021-03-05] MEDS: ARFORMOTEROL 15 MCG/2 ML NEBU IH SCH (20:50)
[2021-03-05] MEDS: cefTRIAXone/NS 2 GM/100 ML 2 GM/100 ML BAG IV SCH (21:29)
[2021-03-06] MEDS: methylPREDNISolone Sod Succinate 40 MG/1 ML INJ IV SCH ×2 (04:55→16:34)
[2021-03-06] MEDS: HEPARIN 5,000 UNIT/1 ML VIAL SUB-Q SCH ×3 (04:59→23:24)
[2021-03-06] MEDS: ARFORMOTEROL 15 MCG/2 ML NEBU IH SCH ×2 (09:09→20:15)
[2021-03-06] MEDS: BUDESONIDE 0.5 MG/2 ML NEBU IH SCH ×2 (09:10→20:15)
[2021-03-06] MEDS: CLOPIDOGREL 75 MG TAB PO SCH (11:04)
[2021-03-06] MEDS: CITALOPRAM 10 MG TAB PO SCH (11:04)
[2021-03-06] MEDS: ASPIRIN 325 MG TAB PO SCH (11:04)
[2021-03-06] MEDS: FUROSEMIDE 20 MG TAB PO SCH (11:05)
[2021-03-06] MEDS: AZITHROMYCIN 250 MG TAB PO SCH (11:05)
[2021-03-06] MEDS: PANTOPRAZOLE 40 MG TAB PO SCH (11:05)
[2021-03-06] MEDS: METOPROLOL TARTRATE 25 MG TAB PO SCH ×2 (11:05→23:19)
[2021-03-06] MEDS: amLODIPine 10 MG TAB PO SCH (11:06)
[2021-03-06] MEDS: URSODIOL NICU 50 MG/ML ORAL LIQD DILUTION PO SCH (11:06)
--- NOTE | 2021-03-06 14:56 | Progress Note ---
Assessment and Plan The patient is an 89-year-old female with history of COVID-19 infection on 2019, possible COPD on 2 to 3 L home O2, morbid obesity, hypertension hyperlipidemia GERD who presented to the ER with a complaint of upper abdominal pain and worsen ing shortness of breath. Acute on chronic respiratory failure respiratory failure -Patient on 2 to 3 L home O2 -Likely due to underlying COPD/chf exacerbation, right lower lobe pneumonia versus post Covid pulmonary fibrosis -cont scheduled nebulizer breathing treatment and as needed -cont Lasix for possible CHF exacerbation - cont empiric steroid and antibiotic - CXR showed pulmonary vascular congestion and possible right basilar infiltrate - s/p BiPAP. Provide supplemental oxygen to keep oxygen saturation above 92% - Consider to consult pulmonary if no improvement in next 24 hours Possible new onset CHF exacerbation with preserved EF -Continue Lasix, monitor ins and outs and daily weight -2D echocardiogram showed EF 50 to 55% Right lower lobe pneumonia, continue empiric antibiotic, nebulizer breathing treatment as needed COVID-19 PUI, Doubt she has covid and patient also does not want to get tested. Repeat CXR showed no acute process She stated that she has been tested twice recently and she was negative -Continue to monitor clinically. Abdominal pain, likely due to underlying GERD -Continue to monitor LFT, continue PPI -CT abdomen pelvis showed no acute pathology -Ultrasound of abdomen showed gallbladder sludge without any sign of cholecystitis -General surgery was consulted and recommended medical management Lower extremity swelling -Likely due to venous insufficiency versus underlying CHF -Continue Lasix for now monitor ins and outs GRAY, likely due to vasomotor nephropathy -Monitor BMP, will consult nephrology if no improvement Coronary artery disease, will resume her home meds History of COVID-19 -Continue supportive care, patient did not receive COVID-19 vaccine -She was tested positive on 03/31/2020 -She tested negative recently, she is refusing further testing Advanced age, supportive care Debility, PT eval: Clinically stable - Provide DVT prophylaxis with Lovenox. Daily clinical course: 03/03/21; patient off BiPAP today, maintaining oxygenation with 5 to 8 L nasal cannula. Pulmonary VQ scan showed low probability for PE. Abdominal pelvis suggestive for gallbladder sludge, consulted general surgery will follow recommendation. Patient clinically feels better but still complaining of epigastric pain. 2D echo showed preserved EF. Creatinine 1.7 today. We will change IV Lasix to p.o. acute respiratory failure will be also due to acute bronchospasm. Pulmonary consulted will follow recommendation. 03/04/21; patient on 15 L high flow O2 today, continue empiric steroid, empiric antibiotics. Pulmonary following. Noted general surgery recommendation for gallbladder sludge: Recommended medical management. Patient's abdominal pain was likely due to peptic ulcer disease/GERD. Continue PPI therapy ambulate from O2 as tolerated. 03/05/21: Patient on 5L O2 today, cont to wean off, order for PT eval. creatinine remains stable. Repeat chest x-ray showed no acute process. 03/06/21: patient on 4L O2 today -cont to wean off, PT recommended HH with roller walker. cont nebs, abx, empiric steroid. Subjective Date of service: 03/06/21 Principal diagnosis: Ac. Hypoxemic Resp failure; SIRS; NSTEMI; CHF ; GRAY; HTN; Abdominal pain Interval history: Patient seen and examined. Medical records and medication list reviewed. No acute event overnight noted by the RN. Patient states that her abdominal pain improved and she is tolerating diet without any difficulty Noted to be on 4 L nasal cannula today, Discussed plan of care at bedside with patient. Objective - Exam Narrative Exam: General appearance: Present: mild distress, obese - EENT Eyes: Present: PERRL ENT: hearing intact, clear oral mucosa - Neck Neck: Present: supple, normal ROM - Respiratory Respiratory effort: Labored, on n/c Respiratory: bilateral: diminished, rhonchi - Cardiovascular Heart Sounds: Present: S1 & S2. Absent: rub, click - Extremities Extremity abnormal: edema Peripheral Pulses: within normal limits - Abdominal General gastrointestinal: Present: soft, non-tender, non-distended, normal bowel sounds Female genitourinary: Present: normal - Integumentary Integumentary: Present: clear, warm, dry - Musculoskeletal Musculoskeletal: gait normal, strength equal bilaterally - Psychiatric Psychiatric: appropriate mood/affect, intact judgment & insight - Neurologic Neurologic: CNII-XII intact, moves all extremities - Constitutional Vitals: Vital Signs - 12hr 03/06/21 03/06/21 03/06/21 03:47 09:05 09:10 Temperature 98.5 F Pulse Rate 67 Pulse Rate [ 67 Bilateral] Respiratory 20 Rate Respiratory 18 Rate [Bilateral ] Blood Pressure 168/91 O2 Sat by Pulse 100 98 Oximetry 03/06/21 03/06/21 09:12 10:00 Temperature Pulse Rate 64 Pulse Rate [ Bilateral] Respiratory Rate Respiratory Rate [Bilateral ] Blood Pressure O2 Sat by Pulse 97 Oximetry - Labs CBC & Chem 7: 03/02/21 04:56 03/05/21 13:27 Labs: Abnormal lab results 03/05/21 Range/Units 15:09 POC Glucose 173 H (70-105) mg/dL HEART Score - HEART Score Troponin: Troponin T < 0.010 ng/mL (0.00-0.029) 03/02/21 04:56
--- NOTE | 2021-03-06 15:16 | Progress Note ---
Assessment and Plan Acute Hypoxemic Respiratory failure SIRS NSTEMI CHF GRAY Upper abdominal pain Hypertension - add LABA & IBS - taper systremic steroids - ACS w/up per cardiology - continue care as below otherwise; - wean supplemental oxygen to keep O2 sats > 90% - gentle diuresis re: CHF - Bronchodilators (RADHA & LABA) with pulm hygiene per RT - continue to avoid nephrotoxins, renally dose all medications - mobility protocols to prevent pressure ulcers - PT/OT as tolerated - Wound care per RN/WCT - accuchecks with glycemic control per SSI for target blood glucose < 180 mg/dL - home oxygen evaluation at discharge - GI & VTE prophylaxis - Flu & pneumovax per protocol - Pulmonary out patient follow up for PFTs and optimization of respiratory status - continue other care per attending / other consultants - prn analgesia per pain score ... re-evaluate in am & prn Subjective Date of service: 03/06/21 Principal diagnosis: Ac. Hypoxemic Resp failure; SIRS; NSTEMI; CHF ; GRAY; HTN; Abdominal pain Interval history: Patient is seen today for: Acute Hypoxemic Respiratory failure; SIRS; NSTEMI; CHF ; GRAY; HTN; Upper abdominal pain Seen and examined at bedside; 24hour events reviewed; nursing and respiratory care staff consulted; no adverse overnight events reported to me; resting peace fully in bed; Objective Vital Signs - 12hr 03/06/21 03/06/21 03/06/21 03:47 09:05 09:10 Temperature 98.5 F Pulse Rate 67 Pulse Rate [ 67 Bilateral] Respiratory 20 Rate Respiratory 18 Rate [Bilateral ] Blood Pressure 168/91 O2 Sat by Pulse 100 98 Oximetry 03/06/21 03/06/21 09:12 10:00 Temperature Pulse Rate 64 Pulse Rate [ Bilateral] Respiratory Rate Respiratory Rate [Bilateral ] Blood Pressure O2 Sat by Pulse 97 Oximetry Constitutional: no acute distress, alert, other (elderly obese female with mildly increased respiratory effort at rest) Eyes: non-icteric ENT: oropharynx moist Neck: supple, no JVD Ascultation: Bilateral: diminished breath sounds, rhonchi (LLL > RLL), other (prolonged expiratory phase) Percussion: Bilateral: not dull Cardiovascular: regular rate and rhythm Gastrointestinal: normoactive bowel sounds, soft, non-tender, non-distended Integumentary: normal Extremities: no cyanosis, no edema, pulses normal, no ischemia or petechiae Neurologic: normal mental status, non-focal exam, pupils equal and round, motor strength normal and Psychiatric: mood appropriate, affect normal CBC and BMP: 03/02/21 04:56 03/05/21 13:27 Abnormal lab findings: Abnormal Labs 03/02/21 03/02/21 03/02/21 04:56 04:56 04:56 RBC 3.19 L MCV 98 H MCH 33 H RDW 15.7 H [place] % (Auto) 10.3 H BUN 27 H Creatinine 1.6 H Glucose 105 H POC Glucose AST 41 H NT-Pro-B Natriuret Pep 4601 H 03/03/21 03/04/21 03/05/21 10:38 04:13 07:47 RBC MCV MCH RDW [place] % (Auto) BUN 30 H 38 H Creatinine 1.7 H 1.7 H Glucose 148 H 153 H POC Glucose 124 H AST NT-Pro-B Natriuret Pep 03/05/21 03/05/21 13:27 15:09 RBC MCV MCH RDW [place] % (Auto) BUN 44 H Creatinine 1.6 H Glucose 153 H POC Glucose 173 H AST NT-Pro-B Natriuret Pep Allied health notes reviewed: nursing
[2021-03-06] MEDS: cefTRIAXone/NS 2 GM/100 ML 2 GM/100 ML BAG IV SCH (23:18)
[2021-03-07] MEDS: URSODIOL NICU 50 MG/ML ORAL LIQD DILUTION PO SCH ×3 (00:44→22:25)
[2021-03-07] MEDS: methylPREDNISolone Sod Succinate 40 MG/1 ML INJ IV SCH ×2 (04:15→15:15)
[2021-03-07] MEDS: HEPARIN 5,000 UNIT/1 ML VIAL SUB-Q SCH ×3 (07:40→22:31)
[2021-03-07] MEDS: BUDESONIDE 0.5 MG/2 ML NEBU IH SCH ×2 (09:14→21:09)
[2021-03-07] MEDS: ARFORMOTEROL 15 MCG/2 ML NEBU IH SCH ×2 (09:14→21:09)
[2021-03-07] MEDS: PANTOPRAZOLE 40 MG TAB PO SCH (10:39)
[2021-03-07] MEDS: ASPIRIN 325 MG TAB PO SCH (10:39)
[2021-03-07] MEDS: FUROSEMIDE 20 MG TAB PO SCH (10:39)
[2021-03-07] MEDS: CLOPIDOGREL 75 MG TAB PO SCH (10:39)
[2021-03-07] MEDS: METOPROLOL TARTRATE 25 MG TAB PO SCH ×2 (10:39→22:24)
[2021-03-07] MEDS: CITALOPRAM 10 MG TAB PO SCH (10:39)
[2021-03-07] MEDS: amLODIPine 10 MG TAB PO SCH (10:39)
--- NOTE | 2021-03-07 15:32 | Progress Note ---
Assessment and Plan Acute Hypoxemic Respiratory failure SIRS NSTEMI CHF GRAY Upper abdominal pain Hypertension - continue LABA & ICS - taper systremic steroids - ACS w/up per cardiology - continue care as below otherwise; - wean supplemental oxygen to keep O2 sats > 90% - gentle diuresis re: CHF - Bronchodilators (RADHA & LABA) with pulm hygiene per RT - continue to avoid nephrotoxins, renally dose all medications - mobility protocols to prevent pressure ulcers - PT/OT as tolerated - Wound care per RN/WCT - accuchecks with glycemic control per SSI for target blood glucose < 180 mg/dL - home oxygen evaluation at discharge - GI & VTE prophylaxis - Flu & pneumovax per protocol - Pulmonary out patient follow up for PFTs and optimization of respiratory status - continue other care per attending / other consultants - prn analgesia per pain score ... re-evaluate in am & prn Subjective Date of service: 03/07/21 Principal diagnosis: Ac. Hypoxemic Resp failure; SIRS; NSTEMI; CHF ; GRAY; HTN; Abdominal pain Interval history: Patient is seen today for: Acute Hypoxemic Respiratory failure; SIRS; NSTEMI; CHF ; GRAY; HTN; Upper abdominal pain Seen and examined at bedside; 24hour events reviewed; nursing and respiratory care staff consulted; no adverse overnight events reported to me; resting peacefully in bed; Objective Vital Signs - 12hr 03/07/21 03/07/21 03/07/21 03:57 07:31 08:00 Temperature 97.5 F L 98.0 F Pulse Rate 60 64 Pulse Rate [ 87 From Monitor] Pulse Rate [ 87 Left Radial] Pulse Rate [ 87 Right Radial] Respiratory 18 18 17 Rate Blood Pressure 146/72 150/70 O2 Sat by Pulse 93 98 97 Oximetry 03/07/21 03/07/21 10:39 11:42 Temperature 98.2 F Pulse Rate 75 69 Pulse Rate [ From Monitor] Pulse Rate [ Left Radial] Pulse Rate [ Right Radial] Respiratory 18 Rate Blood Pressure 140/62 157/77 O2 Sat by Pulse 98 Oximetry Constitutional: no acute distress, alert, other (elderly obese female with mi ldly increased respiratory effort at rest) Eyes: non-icteric ENT: oropharynx moist Neck: supple, no JVD Ascultation: Bilateral: diminished breath sounds, rhonchi (LLL > RLL), other (prolonged expiratory phase) Percussion: Bilateral: not dull Cardiovascular: regular rate and rhythm Gastrointestinal: normoactive bowel sounds, soft, non-tender, non-distended Integumentary: normal Extremities: no cyanosis, no edema, pulses normal, no ischemia or petechiae Neurologic: normal mental status, non-focal exam, pupils equal and round, motor strength normal and Psychiatric: mood appropriate, affect normal CBC and BMP: 03/08/21 04:30 03/08/21 04:30 Abnormal lab findings: Abnormal Labs 03/02/21 03/02/21 03/02/21 04:56 04:56 04:56 RBC 3.19 L MCV 98 H MCH 33 H RDW 15.7 H [place] % (Auto) 10.3 H BUN 27 H Creatinine 1.6 H Glucose 105 H POC Glucose AST 41 H NT-Pro-B Natriuret Pep 4601 H 03/03/21 03/04/21 03/05/21 10:38 04:13 07:47 RBC MCV MCH RDW [place] % (Auto) BUN 30 H 38 H Creatinine 1.7 H 1.7 H Glucose 148 H 153 H POC Glucose 124 H AST NT-Pro-B Natriuret Pep 03/05/21 03/05/21 13:27 15:09 RBC MCV MCH RDW [place] % (Auto) BUN 44 H Creatinine 1.6 H Glucose 153 H POC Glucose 173 H AST NT-Pro-B Natriuret Pep Allied health notes reviewed: nursing
--- NOTE | 2021-03-07 16:09 | Progress Note ---
Assessment and Plan The patient is an 89-year-old female with history of COVID-19 infection on 2019, possible COPD on 2 to 3 L home O2, morbid obesity, hypertension hyperlipidemia GERD who presented to the ER with a complaint of upper abdominal pain and worsen ing shortness of breath. Acute on chronic respiratory failure respiratory failure -Patient on 2 to 3 L home O2 -Likely due to underlying COPD/chf exacerbation, right lower lobe pneumonia versus post Covid pulmonary fibrosis -cont scheduled nebulizer breathing treatment and as needed -cont Lasix for possible CHF exacerbation - cont empiric steroid and antibiotic - CXR showed pulmonary vascular congestion and possible right basilar infiltrate - s/p BiPAP. Provide supplemental oxygen to keep oxygen saturation above 92% - Consider to consult pulmonary if no improvement in next 24 hours Possible new onset CHF exacerbation with preserved EF -Continue Lasix, monitor ins and outs and daily weight -2D echocardiogram showed EF 50 to 55% Right lower lobe pneumonia, continue empiric antibiotic, nebulizer breathing treatment as needed COVID-19 PUI, test is negative Repeat CXR showed no acute process -Continue to monitor clinically. Abdominal pain, likely due to underlying GERD -Continue to monitor LFT, continue PPI -CT abdomen pelvis showed no acute pathology -Ultrasound of abdomen showed gallbladder sludge without any sign of cholecystitis -General surgery was consulted and recommended medical management Lower extremity swelling -Likely due to venous insufficiency versus underlying CHF -Continue Lasix for now monitor ins and outs GRAY, likely due to vasomotor nephropathy -Monitor BMP, will consult nephrology if no improvement Coronary artery disease, will resume her home meds History of COVID-19 -Continue supportive care, patient did not receive COVID-19 vaccine -She was tested positive on 03/31/2020 -She tested negative recently, -Repeat test during this admission is negative Oral candidiasis with possible Chikis esophagitis -Patient complains of painful swallowing. start on nystatin swish and swallow and fluconazole p.o. Odynophagia, could be from candidiasis -We will start on fluconazole and will consult GI Advanced age, supportive care Debility, PT eval: Clinically stable - Provide DVT prophylaxis with Lovenox. Daily clinical course: 03/03/21; patient off BiPAP today, maintaining oxygenation with 5 to 8 L nasal cannula. Pulmonary VQ scan showed low probability for PE. Abdominal pelvis suggestive for gallbladder sludge, consulted general surgery will follow recommendation. Patient clinically feels better but still complaining of epigastric pain. 2D echo showed preserved EF. Creatinine 1.7 today. We will change IV Lasix to p.o. acute respiratory failure will be also due to acute bronchospasm. Pulmonary consulted will follow recommendation. 03/04/21; patient on 15 L high flow O2 today, continue empiric steroid, empiric antibiotics. Pulmonary following. Noted general surgery recommendation for gallbladder sludge: Recommended medical management. Patient's abdominal pain was likely due to peptic ulcer disease/GERD. Continue PPI therapy ambulate from O2 as tolerated. 03/05/21: Patient on 5L O2 today, cont to wean off, order for PT eval. creatinine remains stable. Repeat chest x-ray showed no acute process. 03/06/21: patient on 4L O2 today -cont to wean off, PT recommended HH with roller walker. cont nebs, abx, empiric steroid. 03/07/21: Patient stated that she is not ready to go home yet. She complains of painful swallowing and heartburn. She states that her symptoms reappeared since last night and she unable to eat properly because of painful swallowing. Physical exam suggestive of possible oral candidiasis. Will consult GI and will start on antifungal. Subjective Date of service: 03/07/21 Principal diagnosis: Ac. Hypoxemic Resp failure; SIRS; NSTEMI; CHF ; GRAY; HTN; Abdominal pain Interval history: Patient seen and examined. Medical records and medication list reviewed. No acute event overnight noted by the RN. Patient complains of painful swallowing and heartburn Noted to be on 4 L nasal cannula today, Discussed plan of care at bedside with patient. Objective - Exam Narrative Exam: General appearance: Present: mild distress, obese - EENT Eyes: Present: PERRL ENT: hearing intact, patient noted to have white patches on upper palate - Neck Neck: Present: supple, normal ROM - Respiratory Respiratory effort: Labored, on n/c Respiratory: bilateral: diminished, rhonchi - Cardiovascular Heart Sounds: Present: S1 & S2. Absent: rub, click - Extremities Extremity abnormal: edema Peripheral Pulses: within normal limits - Abdominal General gastrointestinal: Present: soft, non-tender, non-distended, normal bowel sounds Female genitourinary: Present: normal - Integumentary Integumentary: Present: clear, warm, dry - Musculoskeletal Musculoskeletal: gait normal, strength equal bilaterally - Psychiatric Psychiatric: appropriate mood/affect, intact judgment & insight - Neurologic Neurologic: CNII-XII intact, moves all extremities - Constitutional Vitals: Vital Signs - 12hr 03/07/21 03/07/21 03/07/21 07:31 08:00 10:00 Temperature 98.0 F Pulse Rate 64 70 Pulse Rate [ 87 From Monitor] Pulse Rate [ 87 Left Radial] Pulse Rate [ 87 Right Radial] Respiratory 18 17 Rate Blood Pressure 150/70 O2 Sat by Pulse 98 97 Oximetry 03/07/21 03/07/21 10:39 11:42 Temperature 98.2 F Pulse Rate 75 69 Pulse Rate [ From Monitor] Pulse Rate [ Left Radial] Pulse Rate [ Right Radial] Respiratory 18 Rate Blood Pressure 140/62 157/77 O2 Sat by Pulse 98 Oximetry - Labs CBC & Chem 7: 03/08/21 04:30 03/08/21 04:30 HEART Score - HEART Score Troponin: Troponin T < 0.010 ng/mL (0.00-0.029) 03/02/21 04:56
--- NOTE | 2021-03-07 21:16 | Event Note ---
Date: 03/07/21
[2021-03-07] MEDS: FLUCONAZOLE 100 MG/10 ML ORAL SYRINGE PO SCH (22:25)
[2021-03-08] MEDS: methylPREDNISolone Sod Succinate 40 MG/1 ML INJ IV SCH ×2 (04:45→22:22)
[2021-03-08 05:24] LABS: Hematocrit 33.1 % (30.3-42.9); Hemoglobin 11.3 gm/dl (10.1-14.3); Lymphocytes # (Auto) 0.7 K/mm3 (1.2-5.4); Lymphocytes % (Auto) 10.1 % (13.4-35.0); Mean Corpuscular HGB Conc 34 % (30-34); Mean Corpuscular Volume 97 fl (79-97); Monocytes # (Auto) 0.4 K/mm3 (0.0-0.8); Monocytes % (Auto) 6.5 % (0.0-7.3); Platelet Count 254 K/mm3 (140-440); Red Blood Count 3.42 M/mm3 (3.65-5.03); Red Cell Distribution Width 15.1 % (13.2-15.2)
[2021-03-08 05:37] LABS: Calcium 8.5 mg/dL (8.4-10.2)
[2021-03-08] MEDS: HEPARIN 5,000 UNIT/1 ML VIAL SUB-Q SCH ×3 (06:06→21:54)
[2021-03-08] MEDS: BUDESONIDE 0.5 MG/2 ML NEBU IH SCH ×2 (09:15→21:22)
[2021-03-08] MEDS: ARFORMOTEROL 15 MCG/2 ML NEBU IH SCH ×2 (09:15→21:22)
[2021-03-08] MEDS ORDERED: URSODIOL NICU 50 MG/ML ORAL LIQD DILUTION PO SCH (10:00)
[2021-03-08] MEDS: CITALOPRAM 10 MG TAB PO SCH (13:32)
[2021-03-08] MEDS: CLOPIDOGREL 75 MG TAB PO SCH (13:33)
[2021-03-08] MEDS: FUROSEMIDE 20 MG TAB PO SCH (13:33)
[2021-03-08] MEDS: ASPIRIN 325 MG TAB PO SCH (13:33)
[2021-03-08] MEDS: METOPROLOL TARTRATE 25 MG TAB PO SCH ×2 (13:34→21:54)
[2021-03-08] MEDS: PANTOPRAZOLE 40 MG TAB PO SCH (13:34)
--- NOTE | 2021-03-08 13:57 | Progress Note ---
Assessment and Plan This is an 89-year-old female presented to the ER with a complaint of upper abdominal pain. She indicates the pain is in the epigastric and right upper quadrant region. She states the pain has been there for about a month. She indicates it does not move anywhere. She saw her pharmacist hospital, who reportedly ordered blood work, but she is not quite sure what other interventions have been recommended. She denies headache, neck pain, chest pain. She has no lower abdominal pain. She denies urinary symptoms. She has lower extremity edema which she thinks is constant, and she has chronic shortness of breath. She does not believe she has had loss of taste or smell. She does not believe she has had hematemesis, bright red blood per rectum, or melena. Patient has history of CHF, cardiac stents, HTN, Hyperlipidemia, GERD and patient is on Home o2. Patient denies smoking, alcohol or drug abuse. 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 No known drug allergies. Patient alert, awake and resting on 4 litres O2. O2 saturation 97%. BIPAP 16/8, rate 16, FIO2 40% stand by in the room. Patient Running low grade temp.. No leukocytosis. Chest xray done 03/02/21 reported Pulmonary vascular congestion with cardiomegaly. Nonspecific right basilar parenchymal disease possibly representing atelectasis. Clinical correlation recommended. Perfusion lung scan done on 03/03/21 reported low probability perfusion scan for pulmonary embolism. Patient is on I/V Solumedrol, S/C Heparin, Protonix, Albuterol inhaler - Patient Problems (1) Respiratory failure Current Visit: No Status: Acute Qualifiers: Chronicity: acute Respiratory failure complication: hypoxia Qualified Code(s): J96.01 - Acute respiratory failure with hypoxia Plan to address problem: Patient is on 4 litres O2. BIPAP 16/8, rate 16,FIO2 40%.stand by in the room. I/V solumedrol Albuterol inhaler S/C Heparin Protonix. (2) SIRS (systemic inflammatory response syndrome) Current Visit: No Status: Acute Plan to address problem: Patient was on ceftrioxane and zithromax. (3) CHF (congestive heart failure) Current Visit: Yes Status: Acute Qualifiers: Plan to address problem: Management as per cardiology. (4) Renal insufficiency Current Visit: Yes Status: Acute Plan to address problem: Management as per primary and nephrology. (5) Upper abdominal pain Current Visit: Yes Status: Acute Plan to address problem: General surgery consulted. (6) NSTEMI (non-ST elevated myocardial infarction) Current Visit: No Status: Acute Plan to address problem: Management as per cardiology. (7) Hypertension Current Visit: No Status: Chronic Qualifiers: Hypertension type: essential hypertension Qualified Code(s): I10 - Essential (primary) hypertension Plan to address problem: Management as per primary care. Subjective Date of service: 03/08/21 Principal diagnosis: Ac. Hypoxemic Resp failure; SIRS; NSTEMI; CHF ; GRAY; HTN; Abdominal pain Interval history: This is an 89-year-old female presented to the ER with a complaint of upper abdominal pain. She indicates the pain is in the epigastric and right upper quadrant region. She states the pain has been there for about a month. She indicates it does not move anywhere. She saw her pharmacist hospital, who reportedly ordered blood work, but she is not quite sure what other interventions have been recommended. She denies headache, neck pain, chest pain. She has no lower abdominal pain. She denies urinary symptoms. She has lower extremity edema which she thinks is constant, and she has chronic shortness of breath. She does not believe she has had loss of taste or smell. She does not believe she has had hematemesis, bright red blood per rectum, or melena. Patient has history of CHF, cardiac stents, HTN, Hyperlipidemia, GERD and patient is on Home o2. Patient denies smoking, alcohol or drug abuse. 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 No known drug allergies. Patient alert, awake and resting on 4 litres O2. O2 saturation 97%. BIPAP 16/8, rate 16, FIO2 40% stand by in the room. Patient Running low grade temp.. No leukocytosis. Chest xray done 03/02/21 reported Pulmonary vascular congestion with cardiomegaly. Nonspecific right basilar parenchymal disease possibly representing atelectasis. Clinical correlation recommended. Perfusion lung scan done on 03/03/21 reported low probability perfusion scan for pulmonary embolism. Patient is on I/V Solumedrol, S/C Heparin, Protonix, Albuterol inhaler Objective Vital Signs - 12hr 03/08/21 03/08/21 03/08/21 04:10 08:00 09:19 Temperature 98.2 F Pulse Rate 61 Pulse Rate [ 68 Bilateral] Pulse Rate [ 61 From Monitor] Respiratory 18 18 Rate Respiratory 18 Rate [Bilateral ] Blood Pressure 155/75 Blood Pressure [Right] O2 Sat by Pulse 98 98 Oximetry 03/08/21 03/08/21 03/08/21 09:20 09:33 13:34 Temperature Pulse Rate 64 76 Pulse Rate [ Bilateral] Pulse Rate [ From Monitor] Respiratory 18 Rate Respiratory Rate [Bilateral ] Blood Pressure Blood Pressure 160/61 [Right] O2 Sat by Pulse 97 98 Oximetry Constitutional: no acute distress, alert, other (elderly obese female with mildly increased respiratory effort at rest) Eyes: non-icteric ENT: oropharynx moist Neck: supple, no JVD Ascultation: Bilateral: diminished breath sounds, rhonchi (LLL > RLL), other (prolonged expiratory phase) Percussion: Bilateral: not dull Cardiovascular: regular rate and rhythm Gastrointestinal: normoactive bowel sounds, soft, non-tender, non-distended Integumentary: normal Extremities: no cyanosis, no edema, pulses normal, no ischemia or petechiae Neurologic: normal mental status, non-focal exam, pupils equal and round, motor strength normal and Psychiatric: mood appropriate, affect normal CBC and BMP: 03/08/21 04:30 03/08/21 04:30 Abnormal lab findings: Abnormal Labs 03/02/21 03/02/21 03/02/21 04:56 04:56 04:56 RBC 3.19 L MCV 98 H MCH 33 H RDW 15.7 H Lymph % (Auto) [place] % (Auto) 10.3 H Lymph # (Auto) Seg Neutrophils % Carbon Dioxide BUN 27 H Creatinine 1.6 H Glucose 105 H POC Glucose AST 41 H NT-Pro-B Natriuret Pep 4601 H 03/03/21 03/04/21 03/05/21 10:38 04:13 07:47 RBC MCV MCH RDW Lymph % (Auto) [place] % (Auto) Lymph # (Auto) Seg Neutrophils % Carbon Dioxide BUN 30 H 38 H Creatinine 1.7 H 1.7 H Glucose 148 H 153 H POC Glucose 124 H AST NT-Pro-B Natriuret Pep 03/05/21 03/05/21 03/08/21 13:27 15:09 04:30 RBC 3.42 L MCV MCH 33 H RDW Lymph % (Auto) 10.1 L [place] % (Auto) Lymph # (Auto) 0.7 L Seg Neutrophils % 83.4 H Carbon Dioxide BUN 44 H Creatinine 1.6 H Glucose 153 H POC Glucose 173 H AST NT-Pro-B Natriuret Pep 03/08/21 04:30 RBC MCV MCH RDW Lymph % (Auto) [place] % (Auto) Lymph # (Auto) Seg Neutrophils % Carbon Dioxide 34 H D BUN 34 H Creatinine Glucose 154 H POC Glucose AST NT-Pro-B Natriuret Pep Chest x-ray: report reviewed, image reviewed Additional Studies: CHEST 1 VIEW 03/04/21 INDICATION: sob COMPARISON: 03/02/2021 FINDINGS: Support devices: None Heart: Stable. Lungs/Pleura: Right basilar atelectasis has resolved. No acute disease on today's exam. IMPRESSION: 1. No acute disease. Allied health notes reviewed: nursing
[2021-03-08] MEDS: amLODIPine 10 MG TAB PO SCH (14:40)
[2021-03-08] MEDS: URSODIOL NICU 50 MG/ML ORAL LIQD DILUTION PO SCH (16:00)
[2021-03-08] MEDS: FLUCONAZOLE 100 MG/10 ML ORAL SYRINGE PO SCH (16:37)
--- NOTE | 2021-03-08 17:18 | Progress Note ---
Assessment and Plan The patient is an 89-year-old female with history of COVID-19 infection on 2019, possible COPD on 2 to 3 L home O2, morbid obesity, hypertension hyperlipidemia GERD who presented to the ER with a complaint of upper abdominal pain and worsen ing shortness of breath. A/P Acute on chronic respiratory failure respiratory failure -Patient on 2 to 3 L home O2 -Likely due to underlying COPD/chf exacerbation, right lower lobe pneumonia versus post Covid pulmonary fibrosis -cont scheduled nebulizer breathing treatment and as needed -cont Lasix for possible CHF exacerbation - cont empiric steroid and antibiotic - CXR showed pulmonary vascular congestion and possible right basilar infiltrate - s/p BiPAP. Provide supplemental oxygen to keep oxygen saturation above 92% - Consider to consult pulmonary if no improvement in next 24 hours Possible new onset CHF exacerbation with preserved EF -Continue Lasix, monitor ins and outs and daily weight -2D echocardiogram showed EF 50 to 55% Right lower lobe pneumonia, continue empiric antibiotic, nebulizer breathing treatment as needed COVID-19 PUI, test is negative Repeat CXR showed no acute process -Continue to monitor clinically. Abdominal pain, likely due to underlying GERD -Continue to monitor LFT, continue PPI -CT abdomen pelvis showed no acute pathology -Ultrasound of abdomen showed gallbladder sludge without any sign of cholecystitis -General surgery was consulted and recommended medical management Lower extremity swelling -Likely due to venous insufficiency versus underlying CHF -Continue Lasix for now monitor ins and outs GRAY, likely due to vasomotor nephropathy -Monitor BMP, will consult nephrology if no improvement -Creatinine level significantly improved Coronary artery disease, continue her home meds History of COVID-19 -Continue supportive care, patient did not receive COVID-19 vaccine -She was tested positive on 03/31/2020 -She tested negative recently, -Repeat test during this admission is negative Oral candidiasis with possible Chikis esophagitis -Patient complains of painful swallowing. start on nystatin swish and swallow and fluconazole p.o. Odynophagia, could be from candidiasis -started on fluconazole and consulted GI -We will also order for barium swallow study Advanced age, supportive care Debility, PT eval: Clinically stable - Provide DVT prophylaxis with Lovenox. Daily clinical course: 03/03/21; patient off BiPAP today, maintaining oxygenation with 5 to 8 L nasal cannula. Pulmonary VQ scan showed low probability for PE. Abdominal pelvis suggestive for gallbladder sludge, consulted general surgery will follow recommendation. Patient clinically feels better but still complaining of epigastric pain. 2D echo showed preserved EF. Creatinine 1.7 today. We will change IV Lasix to p.o. acute respiratory failure will be also due to acute bronchospasm. Pulmonary consulted will follow recommendation. 03/04/21; patient on 15 L high flow O2 today, continue empiric steroid, empiric antibiotics. Pulmonary following. Noted general surgery recommendation for gallbladder sludge: Recommended medical management. Patient's abdominal pain was likely due to peptic ulcer disease/GERD. Continue PPI therapy ambulate from O2 as tolerated. 03/05/21: Patient on 5L O2 today, cont to wean off, order for PT eval. creatinine remains stable. Repeat chest x-ray showed no acute process. 03/06/21: patient on 4L O2 today -cont to wean off, PT recommended HH with roller walker. cont nebs, abx, empiric steroid. 03/07/21: Patient stated that she is not ready to go home yet. She complains of painful swallowing and heartburn. She states that her symptoms reappeared since last night and she unable to eat properly because of painful swallowing. Physical exam suggestive of possible oral candidiasis. Will consult GI and will start on antifungal. 03/08: Patient on 3 L nasal cannula today. Continue to complains of painful swallowing. GI evaluation pending. Will order for barium swallow study. Continue to follow clinically. Subjective Date of service: 03/08/21 Principal diagnosis: Ac. Hypoxemic Resp failure; SIRS; NSTEMI; CHF ; GRAY; HTN; Abdominal pain Interval history: Patient seen and examined. Medical records and medication list reviewed. No acute event overnight noted by the RN. Patient continued to complains of painful swallowing and heartburn Noted to be on 3 L nasal cannula today, Discussed plan of care at bedside with patient. Objective - Exam Narrative Exam: General appearance: Present: mild distress, obese - EENT Eyes: Present: PERRL ENT: hearing intact, patient noted to have white patches on upper palate - Neck Neck: Present: supple, normal ROM - Respiratory Respiratory effort: Labored, on n/c Respiratory: bilateral: diminished, rhonchi - Cardiovascular Heart Sounds: Present: S1 & S2. Absent: rub, click - Extremities Extremity abnormal: edema Peripheral Pulses: within normal limits - Abdominal General gastrointestinal: Present: soft, non-tender, non-distended, normal bowel sounds Female genitourinary: Present: normal - Integumentary Integumentary: Present: clear, warm, dry - Musculoskeletal Musculoskeletal: gait normal, strength equal bilaterally - Psychiatric Psychiatric: appropriate mood/affect, intact judgment & insight - Neurologic Neurologic: CNII-XII intact, moves all extremities - Constitutional Vitals: Vital Signs - 12hr 03/08/21 03/08/21 03/08/21 08:00 09:19 09:20 Pulse Rate Pulse Rate [ 68 Bilateral] Pulse Rate [ 61 From Monitor] Respiratory 18 Rate Respiratory 18 Rate [Bilateral ] Blood Pressure Blood Pressure [Right] O2 Sat by Pulse 98 97 Oximetry 03/08/21 03/08/21 03/08/21 09:33 10:00 13:34 Pulse Rate 64 71 76 Pulse Rate [ Bilateral] Pulse Rate [ From Monitor] Respiratory 18 Rate Respiratory Rate [Bilateral ] Blood Pressure Blood Pressure 160/61 [Right] O2 Sat by Pulse 98 Oximetry 03/08/21 14:40 Pulse Rate 87 Pulse Rate [ Bilateral] Pulse Rate [ From Monitor] Respiratory Rate Respiratory Rate [Bilateral ] Blood Pressure 160/61 Blood Pressure [Right] O2 Sat by Pulse Oximetry - Labs CBC & Chem 7: 03/08/21 04:30 03/08/21 04:30 Labs: Abnormal lab results 03/08/21 03/08/21 Range/Units 04:30 04:30 RBC 3.42 L (3.65-5.03) M/mm3 MCH 33 H (28-32) pg Lymph % (Auto) 10.1 L (13.4-35.0) % Lymph # (Auto) 0.7 L (1.2-5.4) K/mm3 Seg Neutrophils % 83.4 H (40.0-70.0) % Carbon Dioxide 34 H D (22-30) mmol/L BUN 34 H (7-17) mg/dL Glucose 154 H (65-100) mg/dL HEART Score - HEART Score Troponin: Troponin T < 0.010 ng/mL (0.00-0.029) 03/02/21 04:56
--- NOTE | 2021-03-08 17:25 | Gastroenterology Consultation ---
History of Present Illness - Reason for Consult Consult date: 03/08/21 EPigastric Pain Requesting physician: CRISTINA RICHARD - History of Present Illness The patient is an 89 yo female seen 2 weeks ago in my clinic. She has previously seen Dr Webb who has performed a colonoscopy a few years ago. She has a long hx of reflux with diffuse chest burning. The pain is variable depending on the questioner (some notes say RUQ, or substernal, or epigastric) and are not associated with BMs or eating. She had normal liver/pancreas labs in the office. Here, she has had an US with sludge, a negative CT of A/P, a negative VQ scan, and a TTE that documents moderate pulmonary HTN. She has used prevacid at home for similar complaints, but states that omeprazole and pa ntoprazole are not as effective. She has had no upper abdomen surgery ([facility] only). She was started on nystatin S/S for possible thrush (had complained of odynophagia, but today denies this). She also was started on ursodiol for GB sludge, but this made her dyspeptic symptoms much worse. Past History Past Medical History: CAD, GERD, heart failure, hypertension, other (Pulmonary HTN) Past Surgical History: No surgical history Social history: denies: smoking, alcohol abuse, prescription drug abuse, IV drug use Family history: no significant family history Medications and Allergies Allergies Allergy/AdvReac Type Severity Reaction Status Date / Time No Known Allergies Allergy Verified 08/04/14 12:40 Home Medications Medication Instructions Recorded Confirmed Last Taken Type Omeprazole 1 cap PO DAILY 08/04/14 03/05/21 3 Days Ago History ~03/02/21 Aspirin 325 mg PO QDAY #30 tablet 04/08/15 03/05/21 3 Days Ago Rx ~03/02/21 AtorvaSTATin [Lipitor] 20 mg PO QHS #30 tablet 04/08/15 03/05/21 3 Days Ago Rx ~03/02/21 Citalopram [celeXA] 10 mg PO DAILY #30 tablet 04/08/15 03/05/21 3 Days Ago Rx ~03/02/21 Clopidogrel [Plavix] 75 mg PO QDAY #30 tablet 04/08/15 03/05/21 3 Days Ago Rx ~03/02/21 Metoprolol [Lopressor TAB] 25 mg PO BID #60 tablet 04/08/15 03/05/21 3 Days Ago Rx ~03/02/21 lisinopriL [Zestril TAB] 20 mg PO QDAY #30 tablet 04/08/15 03/05/21 3 Days Ago Rx ~03/02/21 amLODIPine 10 mg PO QDAY #30 tablet 04/07/20 03/05/21 3 Days Ago Rx ~03/02/21 Active Meds: Active Medications Albuterol (Albuterol 2.5 Mg/3 Ml Nebu) 2.5 mg IH Q4HRT PRN PRN Reason: Shortness Of Breath Amlodipine Besylate (Amlodipine 10 Mg Tab) 10 mg PO QDAY [facility] Last Admin: 03/08/21 14:40 Dose: 10 mg Documented by: Arformoterol Tartrate (Arformoterol 15 Mcg/2 Ml Nebu) 15 mcg IH Q12HRT [facility] Last Admin: 03/08/21 09:15 Dose: 15 mcg Documented by: Aspirin (Aspirin 325 Mg Tab) 325 mg PO QDAY [facility] Last Admin: 03/08/21 13:33 Dose: 325 mg Documented by: Atorvastatin Calcium (Atorvastatin 20 Mg Tab) 20 mg PO QHS [facility] Last Admin: 03/07/21 22:24 Dose: 20 mg Documented by: Budesonide (Budesonide 0.5 Mg/2 Ml Nebu) 0.5 mg IH Q12HRT [facility] Last Admin: 03/08/21 09:15 Dose: 0.5 mg Documented by: Citalopram Hydrobromide (Citalopram 10 Mg Tab) 10 mg PO DAILY [facility] Last Admin: 03/08/21 13:32 Dose: 10 mg Documented by: Clopidogrel Bisulfate (Clopidogrel 75 Mg Tab) 75 mg PO QDAY [facility] Last Admin: 03/08/21 13:33 Dose: 75 mg Documented by: Fluconazole (Fluconazole 100 Mg/10 Ml Oral Syringe) 100 mg PO QDAY [facility]; Protocol Last Admin: 03/08/21 16:37 Dose: 100 mg Documented by: Furosemide (Furosemide 20 Mg Tab) 20 mg PO QDAY [facility] Last Admin: 03/08/21 13:33 Dose: 20 mg Documented by: Heparin Sodium (Porcine) (Heparin 5,000 Unit/1 Ml Vial) 5,000 unit SUB-Q Q8HR [facility] Last Admin: 03/08/21 14:42 Dose: Not Given Documented by: Methylprednisolone Sodium Succinate (Methylprednisolone Sod Succinate 40 Mg/1 Ml Inj) 40 mg IV Q24HR [facility] Metoprolol Tartrate (Metoprolol Tartrate 25 Mg Tab) 25 mg PO BID [facility] Last Admin: 03/08/21 13:34 Dose: 25 mg Documented by: Nystatin (Nystatin 500,000 Unit/5 Ml Oral Liqd) 500,000 unit PO TID [facility] Stop: 03/11/21 14:01 Pantoprazole Sodium (Pantoprazole 40 Mg Tab) 40 mg PO DAILY [facility] Last Admin: 03/08/21 13:34 Dose: 40 mg Documented by: I HAVE REVIEWED/RECONCILED MEDICATION Review of Systems - Review of Systems All systems: negative (as noted in the HPI) Exam - Constitutional Vital Signs: Temp Pulse Resp BP Pulse Ox 98.2 F 87 18 160/61 98 03/08/21 04:10 03/08/21 14:40 03/08/21 09:33 03/08/21 14:40 03/08/21 09:33 General appearance: no acute distress - EENT Eyes: PERRL, EOM intact ENT: hearing intact, clear oral mucosa - Neck Neck: supple, normal ROM - Respiratory Respiratory effort: normal Respiratory: bilateral: CTA - Cardiovascular Rhythm: regular Heart Sounds: Present: S1 & S2 Extremities: no ischemia, No edema - Gastrointestinal General gastrointestinal: Present: soft, non-tender, non-distended - Integumentary Integumentary: Present: clear, warm, dry - Neurologic Neurological: alert and oriented x3 - Labs CBC & Chem 7: 03/08/21 04:30 03/08/21 04:30 Lab Results: Laboratory Results - last 24 hr 03/08/21 03/08/21 04:30 04:30 WBC 6.9 RBC 3.42 L Hgb 11.3 Hct 33.1 MCV 97 MCH 33 H MCHC 34 RDW 15.1 Plt Count 254 Lymph % (Auto) 10.1 L [place] % (Auto) 6.5 Eos % (Auto) 0.0 Baso % (Auto) 0.0 Lymph # (Auto) 0.7 L [place] # (Auto) 0.4 Eos # (Auto) 0.0 Baso # (Auto) 0.0 Seg Neutrophils % 83.4 H Seg Neutrophils # 5.7 Sodium 143 Potassium 3.7 Chloride 100.7 Carbon Dioxide 34 H D Anion Gap 12 BUN 34 H Creatinine 1.2 Estimated GFR 51 BUN/Creatinine Ratio 28 Glucose 154 H Calcium 8.5 Assessment and Plan - Patient Problems (1) Epigastric abdominal pain Current Visit: Yes Status: Acute Plan to address problem: - It is not clear if the symptoms are peptic or related to pulmonary HTN/congestion. She has had mild response to PPI therapy, and all imaging is unremarkable. - She has had worsening with actigall and we will stop that. Her US and CT do not show active cholecystitis. - We will continue nystatin x 3 days, but currently (after 24 hours treatment) no gross thrush in the mouth. - We will get an UGI series tomorrow AM, and consider an EGD if significant lesion is seen (ulcer, mass, irregular esophagus mucosa).
[2021-03-08] MEDS: NYSTATIN 500,000 UNIT/5 ML ORAL LIQD PO SCH (22:00)
[2021-03-09] MEDS: HEPARIN 5,000 UNIT/1 ML VIAL SUB-Q SCH ×3 (07:04→22:16)
[2021-03-09] MEDS: BUDESONIDE 0.5 MG/2 ML NEBU IH SCH ×2 (07:47→21:39)
[2021-03-09] MEDS: ARFORMOTEROL 15 MCG/2 ML NEBU IH SCH ×2 (07:47→21:39)
[2021-03-09] MEDS: NYSTATIN 500,000 UNIT/5 ML ORAL LIQD PO SCH ×3 (08:00→22:15)
--- NOTE | 2021-03-09 09:08 | Progress Note ---
Assessment and Plan Assessment and plan: The patient is an 89-year-old female with history of COVID-19 infection on 2019, possible COPD on 2 to 3 L home O2, morbid obesity, hypertension hyperlipidemia GERD who presented to the ER with a complaint of upper abdominal pain and worsening shortness of breath. A/P Acute on chronic respiratory failure respiratory failure -Patient on 2 to 3 L home O2 -Likely due to underlying COPD/chf exacerbation, right lower lobe pneumonia versus post Covid pulmonary fibrosis -cont scheduled nebulizer breathing treatment and as needed -cont Lasix for possible CHF exacerbation - cont empiric steroid and antibiotic - CXR showed pulmonary vascular congestion and possible right basilar infiltrate - s/p BiPAP. Provide supplemental oxygen to keep oxygen saturation above 92% - Consider to consult pulmonary if no improvement in next 24 hours Possible new onset CHF exacerbation with preserved EF -Continue Lasix, monitor ins and outs and daily weight -2D echocardiogram showed EF 50 to 55% Right lower lobe pneumonia, continue empiric antibiotic, nebulizer breathing treatment as needed COVID-19 PUI, test is negative Repeat CXR showed no acute process -Continue to monitor clinically. Abdominal pain, likely due to underlying GERD -Continue to monitor LFT, continue PPI -CT abdomen pelvis showed no acute pathology -Ultrasound of abdomen showed gallbladder sludge without any sign of cholecystitis -General surgery was consulted and recommended medical management Lower extremity swelling -Likely due to venous insufficiency versus underlying CHF -Continue Lasix for now monitor ins and outs GRAY, likely due to vasomotor nephropathy -Monitor BMP, will consult nephrology if no improvement -Creatinine level significantly improved Coronary artery disease, continue her home meds History of COVID-19 -Continue supportive care, patient did not receive COVID-19 vaccine -She was tested positive on 03/31/2020 -She tested negative recently, -Repeat test during this admission is negative Oral candidiasis with possible [place] esophagitis -Patient complains of painful swallowing. start on nystatin swish and swallow and fluconazole p.o. Odynophagia, could be from candidiasis -started on fluconazole and consulted GI -We will also order for barium swallow study Advanced age, supportive care Debility, PT eval: Clinically stable - Provide DVT prophylaxis with Lovenox. Daily clinical course: 03/03/21; patient off BiPAP today, maintaining oxygenation with 5 to 8 L nasal cannula. Pulmonary VQ scan showed low probability for PE. Abdominal pelvis suggestive for gallbladder sludge, consulted general surgery will follow recommendation. Patient clinically feels better but still complaining of epigastric pain. 2D echo showed preserved EF. Creatinine 1.7 today. We will change IV Lasix to p.o. acute respiratory failure will be also due to acute bronchospasm. Pulmonary consulted will follow recommendation. 03/04/21; patient on 15 L high flow O2 today, continue empiric steroid, empiric antibiotics. Pulmonary following. Noted general surgery recommendation for gallbladder sludge: Recommended medical management. Patient's abdominal pain w as likely due to peptic ulcer disease/GERD. Continue PPI therapy ambulate from O2 as tolerated. 03/05/21: Patient on 5L O2 today, cont to wean off, order for PT eval. creatinine remains stable. Repeat chest x-ray showed no acute process. 03/06/21: patient on 4L O2 today -cont to wean off, PT recommended HH with roller walker. cont nebs, abx, empiric steroid. 03/07/21: Patient stated that she is not ready to go home yet. She complains of painful swallowing and heartburn. She states that her symptoms reappeared since last night and she unable to eat properly because of painful swallowing. Physical exam suggestive of possible oral candidiasis. Will consult GI and will start on antifungal. 03/08: Patient on 3 L nasal cannula today. Continue to complains of painful swallowing. GI evaluation pending. Will order for barium swallow study. Continue to follow clinically. 03/09/2021; patient is on room air. Evaluated by GI and going to do upper GI series today and if no significant lesion they will do EGD. History Interval history: Patient was seen and evaluated this morning Patient was eating her lunch without problems Patient states she has burning after she ate the food Hospitalist Physical - Physical exam Narrative exam: Not in cardiopulmonary distress. The patient appeared well nourished and normally developed. Vital signs as documented. Head exam is unremarkable. No scleral icterus . Neck is without jugular venous distension, thyromegaly, or carotid bruits. Lungs are clear to auscultation. Cardiac exam reveals regular rate and Rhythm. Abdominal exam reveals normal bowel sounds, nontender, no organomegaly. Extremities are nonedematous and both femoral and pedal pulses are normal. [employer] SETTINGS PA[employer]: Alert and oriented 3. No focal weakness. - Constitutional Vitals: Temp Pulse Resp BP Pulse Ox 97.8 F 65 16 171/83 98 03/09/21 07:02 03/09/21 07:02 03/09/21 07:02 03/09/21 07:02 03/09/21 07:02 HEART Score - HEART Score Troponin: Troponin T < 0.010 ng/mL (0.00-0.029) 03/02/21 04:56 Results - Labs CBC & Chem 7: 03/08/21 04:30 03/08/21 04:30 Labs: Laboratory Last Values WBC 6.9 K/mm3 (4.5-11.0) 03/08/21 04:30 RBC 3.42 M/mm3 (3.65-5.03) L 03/08/21 04:30 Hgb 11.3 gm/dl (10.1-14.3) 03/08/21 04:30 Hct 33.1 % (30.3-42.9) 03/08/21 04:30 MCV 97 fl (79-97) 03/08/21 04:30 MCH 33 pg (28-32) H 03/08/21 04:30 MCHC 34 % (30-34) 03/08/21 04:30 RDW 15.1 % (13.2-15.2) 03/08/21 04:30 Plt Count 254 K/mm3 (140-440) 03/08/21 04:30 Lymph % (Auto) 10.1 % (13.4-35.0) L 03/08/21 04:30 [place] % (Auto) 6.5 % (0.0-7.3) 03/08/21 04:30 Eos % (Auto) 0.0 % (0.0-4.3) 03/08/21 04:30 Baso % (Auto) 0.0 % (0.0-1.8) 03/08/21 04:30 Lymph # (Auto) 0.7 K/mm3 (1.2-5.4) L 03/08/21 04:30 [place] # (Auto) 0.4 K/mm3 (0.0-0.8) 03/08/21 04:30 Eos # (Auto) 0.0 K/mm3 (0.0-0.4) 03/08/21 04:30 Baso # (Auto) 0.0 K/mm3 (0.0-0.1) 03/08/21 04:30 Seg Neutrophils % 83.4 % (40.0-70.0) H 03/08/21 04:30 Seg Neutrophils # 5.7 K/mm3 (1.8-7.7) 03/08/21 04:30 Sodium 143 mmol/L (137-145) 03/08/21 04:30 Potassium 3.7 mmol/L (3.6-5.0) 03/08/21 04:30 Chloride 100.7 mmol/L (98-107) 03/08/21 04:30 Carbon Dioxide 34 mmol/L (22-30) H D 03/08/21 04:30 Anion Gap 12 mmol/L 03/08/21 04:30 BUN 34 mg/dL (7-17) H 03/08/21 04:30 Creatinine 1.2 mg/dL (0.6-1.2) 03/08/21 04:30 Estimated GFR 51 ml/min 03/08/21 04:30 BUN/Creatinine Ratio 28 % 03/08/21 04:30 Glucose 154 mg/dL (65-100) H 03/08/21 04:30 POC Glucose 173 mg/dL (70-105) H 03/05/21 15:09 Lactic Acid 1.00 mmol/L (0.7-2.0) 03/02/21 08:48 Calcium 8.5 mg/dL (8.4-10.2) 03/08/21 04:30 Magnesium 2.00 mg/dL (1.7-2.3) 03/02/21 08:48 Total Bilirubin 0.50 mg/dL (0.1-1.2) 03/02/21 04:56 AST 41 units/L (5-40) H 03/02/21 04:56 ALT 45 units/L (7-56) 03/02/21 04:56 Alkaline Phosphatase 92 units/L (35-129) 03/02/21 04:56 Total Creatine Kinase 72 units/L (30-135) 03/02/21 08:48 Troponin T < 0.010 ng/mL (0.00-0.029) 03/02/21 04:56 NT-Pro-B Natriuret Pep 4601 pg/mL (0-900) H 03/02/21 04:56 Total Protein 7.8 g/dL (6.3-8.2) 03/02/21 04:56 Albumin 4.0 g/dL (3.9-5) 03/02/21 04:56 Albumin/Globulin Ratio 1.1 % 03/02/21 04:56 Lipase 43 units/L (13-60) 03/02/21 04:56 TSH 2.480 mlU/mL (0.270-4.200) 03/02/21 08:48 Urine Color Yellow (Yellow) 03/03/21 04:54 Urine Turbidity Clear (Clear) 03/03/21 04:54 Urine pH 5.0 (5.0-7.0) 03/03/21 04:54 Ur Specific [place] 1.012 (1.003-1.030) 03/03/21 04:54 Urine Protein 30 mg/dl mg/dL (Negative) 03/03/21 04:54 Urine Glucose (UA) Neg mg/dL (Negative) 03/03/21 04:54 Urine Ketones Neg mg/dL (Negative) 03/03/21 04:54 Urine Blood Neg (Negative) 03/03/21 04:54 Urine Nitrite Neg (Negative) 03/03/21 04:54 Urine Bilirubin Neg (Negative) 03/03/21 04:54 Urine Urobilinogen < 2.0 mg/dL (<2.0) 03/03/21 04:54 Ur Leukocyte Esterase Neg (Negative) 03/03/21 04:54 Urine WBC (Auto) 2.0 /HPF (0.0-6.0) 03/03/21 04:54 Urine RBC (Auto) 2.0 /HPF (0.0-6.0) 03/03/21 04:54 U Epithel Cells (Auto) 2.0 /HPF (0-13.0) 03/03/21 04:54 Hyaline Casts 1 /LPF 03/03/21 04:54 Urine Mucus Few /HPF 03/03/21 04:54 Coronavirus (PCR) Negative (Negative) 03/07/21 09:53 No/IV: Voiding Method External Female Catheter Active Medications - Current Medications Current Medications: Generic Name Dose Route Start Last Admin Trade Name Freq PRN Reason Stop Dose Admin Albuterol 2.5 mg 03/02/21 14:14 Albuterol 2.5 Mg/3 Ml Nebu IH Q4HRT PRN Shortness Of Breath Amlodipine Besylate 10 mg 03/02/21 10:00 03/08/21 14:40 Amlodipine 10 Mg Tab PO 10 mg QDAY JELLY Administration Arformoterol Tartrate 15 mcg 03/05/21 20:00 03/09/21 07:47 Arformoterol 15 Mcg/2 Ml Nebu IH 15 mcg Q12HRT JELLY Administration Aspirin 325 mg 03/03/21 10:00 03/08/21 13:33 Aspirin 325 Mg Tab PO 325 mg QDAY JELLY Administration Atorvastatin Calcium 20 mg 03/02/21 22:00 03/08/21 21:54 Atorvastatin 20 Mg Tab PO 20 mg QHS JELLY Administration Budesonide 0.5 mg 03/05/21 20:00 03/09/21 07:47 Budesonide 0.5 Mg/2 Ml Nebu IH 0.5 mg Q12HRT JELLY Administration Citalopram Hydrobromide 10 mg 03/02/21 10:00 03/08/21 13:32 Citalopram 10 Mg Tab PO 10 mg DAILY JELLY Administration Clopidogrel Bisulfate 75 mg 03/02/21 10:00 03/08/21 13:33 Clopidogrel 75 Mg Tab PO 75 mg QDAY JELLY Administration Fluconazole 100 mg 03/07/21 22:00 03/08/21 16:37 Fluconazole 100 Mg/10 Ml Oral Syringe PO 100 mg QDAY JELLY Administration Protocol Furosemide 20 mg 03/04/21 10:00 03/08/21 13:33 Furosemide 20 Mg Tab PO 20 mg QDAY JELLY Administration Heparin Sodium (Porcine) 5,000 unit 03/02/21 22:00 03/09/21 07:04 Heparin 5,000 Unit/1 Ml Vial SUB-Q Not Given Q8HR [facility] Methylprednisolone Sodium Succinate 40 mg 03/09/21 10:00 Methylprednisolone Sod Succinate 40 Mg/1 Ml Inj IV Q24HR [facility] Metoprolol Tartrate 25 mg 03/02/21 10:00 03/08/21 21:54 Metoprolol Tartrate 25 Mg Tab PO 25 mg BID JELLY Administration Nystatin 500,000 unit 03/08/21 21:12 03/08/21 22:00 Nystatin 500,000 Unit/5 Ml Oral Liqd PO 03/11/21 14:01 500,000 unit TID JELLY Administration Pantoprazole Sodium 40 mg 03/03/21 10:00 03/08/21 13:34 Pantoprazole 40 Mg Tab PO 40 mg DAILY JELLY Administration
--- NOTE | 2021-03-09 11:22 | Gastroenterology Progress Note ---
Assessment and Plan - Patient Problems (1) Epigastric abdominal pain Current Visit: Yes Status: Acute Plan to address problem: - It is not clear if the symptoms are peptic or related to pulmonary HTN/congestion. She has had mild response to PPI therapy, and all imaging is unremarkable. - She has had worsening with actigall and we will stop that (improved after stopping). Her US and CT do not show active cholecystitis. - We will continue nystatin x 3 days, but currently (after 24 hours treatment) no gross thrush in the mouth. - UGI final read pending, but if negative, and tolerates PO diet without severe pain, may discharge and follow up in the clinic. Subjective Date of service: 03/09/21 Principal diagnosis: Epigastric Pain Interval history: The patient has completed her UGI series without event. She had no vomiting, and denies fevers or blood in the stools. Since stopping the actigall, her abdominal complaints have improved and she has no odynophagia. Objective - Constitutional Vitals: Temp Pulse Resp BP Pulse Ox 97.8 F 72 16 171/83 98 03/09/21 07:02 03/09/21 07:47 03/09/21 07:47 03/09/21 07:02 03/09/21 09:29 General appearance: no acute distress - Respiratory Respiratory effort: normal Respiratory: bilateral: CTA - Cardiovascular Rhythm: regular Heart Sounds: Present: S1 & S2 - Gastrointestinal General gastrointestinal: Present: soft, non-tender, non-distended - Labs CBC & Chem 7: 03/08/21 04:30 03/08/21 04:30
--- NOTE | 2021-03-09 12:15 | Progress Note ---
Assessment and Plan This is an 89-year-old female presented to the ER with a complaint of upper abdominal pain. She indicates the pain is in the epigastric and right upper quadrant region. She states the pain has been there for about a month. She indicates it does not move anywhere. She saw her sergeant at arms, who reportedly ordered blood work, but she is not quite sure what other interventions have been recommended. She denies headache, neck pain, chest pain. She has no lower abdominal pain. She denies urinary symptoms. She has lower extremity edema which she thinks is constant, and she has chronic shortness of breath. She does not believe she has had loss of taste or smell. She does not believe she has had hematemesis, bright red blood per rectum, or melena. Patient has history of CHF, cardiac stents, HTN, Hyperlipidemia, GERD and patient is on Home o2. Patient denies smoking, alcohol or drug abuse. 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 She has 3 children. No known drug allergies. Patient alert, awake and resting on High flow O2, Vapotherm,FIO2 50%. O2 saturation 94%. Patient afebrile. No leukocytosis. Chest xray done 03/02/21 reported Pulmonary vascular congestion with cardiomegaly. Nonspecific right basilar parenchymal disease possibly representing atelectasis. Clinical correlation recommended. Perfusion lung scan done on 03/03/21 reported low probability perfusion scan for pulmonary embolism. Patient is on ceftriaxone, Zithromax, I/V Solumedrol, S/C Heparin, Protonix, Albuterol inhaler - Patient Problems (1) Respiratory failure Current Visit: No Status: Acute Qualifiers: Chronicity: acute Respiratory failure complication: hypoxia Qualified Code(s): J96.01 - Acute respiratory failure with hypoxia Plan to address problem: Patient is on Vapotherm, FIO2 50% I/V solumedrol Albuterol inhaler S/C Heparin Protonix. (2) SIRS (systemic inflammatory response syndrome) Current Visit: No Status: Acute Plan to address problem: Patient is on ceftrioxane and zithromax. (3) CHF (congestive heart failure) Current Visit: Yes Status: Acute Qualifiers: Plan to address problem: Management as per cardiology. (4) Renal insufficiency Current Visit: Yes Status: Acute Plan to address problem: Management as per primary and nephrology. (5) Upper abdominal pain Current Visit: Yes Status: Acute Plan to address problem: General surgery consulted. (6) NSTEMI (non-ST elevated myocardial infarction) Current Visit: No Status: Acute Plan to address problem: Management as per cardiology. (7) Hypertension Current Visit: No Status: Chronic Qualifiers: Hypertension type: essential hypertension Qualified Code(s): I10 - Essential (primary) hypertension Plan to address problem: Management as per primary care. Subjective Date of service: 03/09/21 Principal diagnosis: Epigastric Pain Objective Vital Signs - 12hr 03/09/21 03/09/21 03/09/21 03:34 05:12 07:02 Temperature 97.8 F 97.8 F Pulse Rate 65 65 Pulse Rate [ Bilateral] Respiratory 19 16 Rate Respiratory Rate [Bilateral ] Blood Pressure 174/76 171/83 O2 Sat by Pulse 96 98 Oximetry 03/09/21 03/09/21 07:47 09:29 Temperature Pulse Rate Pulse Rate [ 72 Bilateral] Respiratory Rate Respiratory 16 Rate [Bilateral ] Blood Pressure O2 Sat by Pulse 98 Oximetry Constitutional: no acute distress, alert, other (elderly obese female with mildly increased respiratory effort at rest) Eyes: non-icteric ENT: oropharynx moist Neck: supple, no JVD Ascultation: Bilateral: diminished breath sounds, rhonchi (LLL > RLL), other (prolonged expiratory phase) Percussion: Bilateral: not dull Cardiovascular: regular rate and rhythm Gastrointestinal: normoactive bowel sounds, soft, non-tender, non-distended Integumentary: normal Extremities: no cyanosis, no edema, pulses normal, no ischemia or petechiae Neurologic: normal mental status, non-focal exam, pupils equal and round, motor strength normal and Psychiatric: mood appropriate, affect normal CBC and BMP: 03/08/21 04:30 03/08/21 04:30 Abnormal lab findings: Abnormal Labs 03/02/21 03/02/21 03/02/21 04:56 04:56 04:56 RBC 3.19 L MCV 98 H MCH 33 H RDW 15.7 H Lymph % (Auto) [place] % (Auto) 10.3 H Lymph # (Auto) Seg Neutrophils % Carbon Dioxide BUN 27 H Creatinine 1.6 H Glucose 105 H POC Glucose AST 41 H NT-Pro-B Natriuret Pep 4601 H 06/06/1503/04/21 03/05/21 10:38 04:13 07:47 RBC MCV MCH RDW Lymph % (Auto) [place] % (Auto) Lymph # (Auto) Seg Neutrophils % Carbon Dioxide BUN 30 H 38 H Creatinine 1.7 H 1.7 H Glucose 148 H 153 H POC Glucose 124 H AST NT-Pro-B Natriuret Pep 03/05/21 03/05/21 03/08/21 13:27 15:09 04:30 RBC 3.42 L MCV MCH 33 H RDW Lymph % (Auto) 10.1 L [place] % (Auto) Lymph # (Auto) 0.7 L Seg Neutrophils % 83.4 H Carbon Dioxide BUN 44 H Creatinine 1.6 H Glucose 153 H POC Glucose 173 H AST NT-Pro-B Natriuret Pep 03/08/21 04:30 RBC MCV MCH RDW Lymph % (Auto) [place] % (Auto) Lymph # (Auto) Seg Neutrophils % Carbon Dioxide 34 H D BUN 34 H Creatinine Glucose 154 H POC Glucose AST NT-Pro-B Natriuret Pep Allied health notes reviewed: nursing
[2021-03-09] MEDS: PANTOPRAZOLE 40 MG TAB PO SCH (14:33)
[2021-03-09] MEDS: ASPIRIN 325 MG TAB PO SCH (14:54)
[2021-03-09] MEDS: CLOPIDOGREL 75 MG TAB PO SCH (14:54)
[2021-03-09] MEDS: amLODIPine 10 MG TAB PO SCH (14:55)
[2021-03-09] MEDS: CITALOPRAM 10 MG TAB PO SCH (14:56)
[2021-03-09] MEDS: FUROSEMIDE 20 MG TAB PO SCH (14:59)
[2021-03-09] MEDS: METOPROLOL TARTRATE 25 MG TAB PO SCH ×2 (14:59→22:16)
[2021-03-09] MEDS: methylPREDNISolone Sod Succinate 40 MG/1 ML INJ IV SCH (15:33)
[2021-03-09] MEDS: FLUCONAZOLE 100 MG/10 ML ORAL SYRINGE PO SCH (15:33)
[2021-03-10] MEDS: HEPARIN 5,000 UNIT/1 ML VIAL SUB-Q SCH (06:27)
[2021-03-10] MEDS: BUDESONIDE 0.5 MG/2 ML NEBU IH SCH (08:21)
[2021-03-10] MEDS: ARFORMOTEROL 15 MCG/2 ML NEBU IH SCH (08:21)
[2021-03-10 08:36] VITALS: BP 167/76
--- NOTE | 2021-03-10 09:56 | Discharge Summary ---
Providers - Providers Date of Admission: 03/02/21 07:50 Date of discharge: 03/10/21 Attending physician: REMA DELANEY MD 03/02/21 21:43 Physical Therapy Evaluation and Treat [CONS] Routine Comment: Reason For Exam: Debility 03/03/21 10:04 Consult to Physician [CONS] Routine Comment: Consulting Provider: MARGARITO SOLIS Physician Instructions: Reason For Exam: acute respiratory failure 03/03/21 10:05 Consult to Physician [CONS] Routine Comment: Consulting Provider: AMY GUERRERO Physician Instructions: Reason For Exam: gall bladder sludge 03/07/21 21:16 Consult to Physician [CONS] Routine Comment: Consulting Provider: JAIME LEE Physician Instructions: Reason For Exam: odynophagia 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 A/P Acute on chronic respiratory failure respiratory failure -Patient on 2 to 3 L home O2 -Likely due to underlying COPD/chf exacerbation, right lower lobe pneumonia versus post Covid pulmonary fibrosis -cont scheduled nebulizer breathing treatment and as needed -cont Lasix for possible CHF exacerbation - cont empiric steroid and antibiotic - CXR showed pulmonary vascular congestion and possible right basilar infiltrate - s/p BiPAP. Provide supplemental oxygen to keep oxygen saturation above 92% - Consider to consult pulmonary if no improvement in next 24 hours Possible new onset CHF exacerbation with preserved EF -Continue Lasix, monitor ins and outs and daily weight -2D echocardiogram showed EF 50 to 55% Right lower lobe pneumonia, continue empiric antibiotic, nebulizer breathing treatment as needed COVID-19 PUI, test is negative Repeat CXR showed no acute process -Continue to monitor clinically. Abdominal pain, likely due to underlying GERD -Continue to monitor LFT, continue PPI -CT abdomen pelvis showed no acute pathology -Ultrasound of abdomen showed gallbladder sludge without any sign of cholecystitis -General surgery was consulted and recommended medical management Lower extremity swelling -Likely due to venous insufficiency versus underlying CHF -Continue Lasix for now monitor ins and outs GRAY, likely due to vasomotor nephropathy -Monitor BMP, will consult nephrology if no improvement -Creatinine level significantly improved Coronary artery disease, continue her home meds History of COVID-19 -Continue supportive care, patient did not receive COVID-19 vaccine -She was tested positive on 03/31/2020 -She tested negative recently, -Repeat test during this admission is negative Oral candidiasis with possible Chikis esophagitis -Patient complains of painful swallowing. start on nystatin swish and swallow and fluconazole p.o. Odynophagia, could be from candidiasis -started on fluconazole and consulted GI -We will also order for barium swallow study Advanced age, supportive care Debility, PT eval: Clinically stable - Provide DVT prophylaxis with Lovenox. Daily clinical course: 03/03/21; patient off BiPAP today, maintaining oxygenation with 5 to 8 L nasal cannula. Pulmonary VQ scan showed low probability for PE. Abdominal pelvis suggestive for gallbladder sludge, consulted general surgery will follow recommendation. Patient clinically feels better but still complaining of epigastric pain. 2D echo showed preserved EF. Creatinine 1.7 today. We will change IV Lasix to p.o. acute respiratory failure will be also due to acute bronchospasm. Pulmonary consulted will follow recommendation. 03/04/21; patient on 15 L high flow O2 today, continue empiric steroid, empiric antibiotics. Pulmonary following. Noted general surgery recommendation for gallbladder sludge: Recommended medical management. Patient's abdominal pain was likely due to peptic ulcer disease/GERD. Continue PPI therapy ambulate from O2 as tolerated. 03/05/21: Patient on 5L O2 today, cont to wean off, order for PT eval. creatinine remains stable. Repeat chest x-ray showed no acute process. 03/06/21: patient on 4L O2 today -cont to wean off, PT recommended HH with roller walker. cont nebs, abx, empiric steroid. 03/07/21: Patient stated that she is not ready to go home yet. She complains of painful swallowing and heartburn. She states that her symptoms reappeared since last night and she unable to eat properly because of painful swallowing. Physical exam suggestive of possible oral candidiasis. Will consult GI and will start on antifungal. 03/08: Patient on 3 L nasal cannula today. Continue to complains of painful swallowing. GI evaluation pending. Will order for barium swallow study. Continue to follow clinically. 03/09/2021; patient is on room air. Evaluated by GI and going to do upper GI series today and if no significant lesion they will do EGD. Discussed with Dr. Lee and he said the preliminary reading of upper GI series did not show any mass or obstruction. Patient symptoms have markedly improved. Patient does not have any significant burning after eating. She was cleared by Dr Lee for discharge and will follow her in the office. Patient states she rosario s been on 3 and half liters of oxygen at home and will continue with that. Patient discharged with pantoprazole and sucralfate. Patient was hemodynamically stable at the time of discharge. Management plan was discussed in detail with the patient and was in agreement with the plan of care. Disposition: DC-30 STILL A PATIENT Final Discharge Diagnosis (Prints w/discharge instructions): odynophagia. Chronic respiratory failure on home oxygen. GERD Time spent for discharge: 35 minutes - Discharge Diagnoses (1) GERD (gastroesophageal reflux disease) Status: Acute (2) Odynophagia Status: Acute Core Measure Documentation - Palliative Care Palliative Care/ Comfort Measures: Not Applicable - Core Measures Any of the following diagnoses?: none Exam - Physical Exam Narrative exam: Not in cardiopulmonary distress. The patient appeared well nourished and normally developed. Vital signs as documented. Head exam is unremarkable. No scleral icterus . Neck is without jugular venous distension, thyromegaly, or carotid bruits. Lungs are clear to auscultation. Cardiac exam reveals regular rate and Rhythm. Abdominal exam reveals normal bowel sounds, nontender, no organomegaly. Extremities are nonedematous and both femoral and pedal pulses are normal. 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 No focal weakness. - Constitutional Vitals: Temp Pulse Resp BP Pulse Ox 98.6 F 64 20 167/76 99 03/10/21 07:33 03/10/21 08:15 03/10/21 08:15 03/10/21 07:33 03/10/21 09:08 Plan Activity: advance as tolerated Weight Bearing Status: Full Weight Bearing Diet: advance as tolerated Follow up with: SHEFALI HUFF MD [Primary Care Provider] - 3-5 Days JAIME LEE MD [Staff Physician] - 14 Days Prescriptions: Sucralfate [Carafate] 1 gm PO ACHS #120 tablet Furosemide [Lasix TAB] 20 mg PO QDAY #30 tablet methylPREDNISolone [Medrol 4MG DOSEPAK (21 tabs)] 4 mg PO DAILY #1 tab.ds.pk Nystatin [Nystatin SUSP] 500,000 unit PO TID #6 udc Pantoprazole [Protonix TAB] 40 mg PO DAILY #30 tablet
[2021-03-10] MEDS: NYSTATIN 500,000 UNIT/5 ML ORAL LIQD PO SCH (10:46)
[2021-03-10] MEDS: amLODIPine 10 MG TAB PO SCH (10:47)
[2021-03-10] MEDS: ASPIRIN 325 MG TAB PO SCH (10:47)
[2021-03-10] MEDS: methylPREDNISolone Sod Succinate 40 MG/1 ML INJ IV SCH (10:48)
[2021-03-10] MEDS: PANTOPRAZOLE 40 MG TAB PO SCH (10:48)
[2021-03-10] MEDS: METOPROLOL TARTRATE 25 MG TAB PO SCH (10:48)
[2021-03-10] MEDS: CLOPIDOGREL 75 MG TAB PO SCH (10:48)
[2021-03-10] MEDS: FUROSEMIDE 20 MG TAB PO SCH (10:48)
[2021-03-10] MEDS: CITALOPRAM 10 MG TAB PO SCH (10:52)
[2021-03-10] MEDS ORDERED: SUCRALFATE 1 GM/10 ML ORAL LIQD PO SCH (11:30)
--- NOTE | 2021-03-10 14:05 | Progress Note ---
Assessment and Plan This is an 89-year-old female presented to the ER with a complaint of upper abdominal pain. She indicates the pain is in the epigastric and right upper quadrant region. She states the pain has been there for about a month. She indicates it does not move anywhere. She saw her engineer technical staff, who reportedly ordered blood work, but she is not quite sure what other interventions have been recommended. She denies headache, neck pain, chest pain. She has no lower abdominal pain. She denies urinary symptoms. She has lower extremity edema which she thinks is constant, and she has chronic shortness of breath. She does not believe she has had loss of taste or smell. She does not believe she has had hematemesis, bright red blood per rectum, or melena. Patient has history of CHF, cardiac stents, HTN, Hyperlipidemia, GERD and patient is on Home o2. Patient denies smoking, alcohol or drug abuse. 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 No known drug allergies. Patient alert, awake and resting on 4 litres O2. O2 saturation 97%. BIPAP 16/8, rate 16, FIO2 40% stand by in the room. Patient Running low grade temp.. No leukocytosis. Chest xray done 03/02/21 reported Pulmonary vascular congestion with cardiomegaly. Nonspecific right basilar parenchymal disease possibly representing atelectasis. Clinical correlation recommended. Perfusion lung scan done on 03/03/21 reported low probability perfusion scan for pulmonary embolism. Patient is on I/V Solumedrol, S/C Heparin, Protonix, Albuterol inhaler - Patient Problems (1) Respiratory failure Current Visit: No Status: Acute Qualifiers: Chronicity: acute Respiratory failure complication: hypoxia Qualified Code(s): J96.01 - Acute respiratory failure with hypoxia Plan to address problem: Patient is on 4 litres O2. BIPAP 16/8, rate 16,FIO2 40%.stand by in the room. I/V solumedrol Albuterol inhaler S/C Heparin Protonix. (2) SIRS (systemic inflammatory response syndrome) Current Visit: No Status: Acute Plan to address problem: Patient was on ceftrioxane and zithromax. (3) CHF (congestive heart failure) Current Visit: Yes Status: Acute Qualifiers: Plan to address problem: Management as per cardiology. (4) Renal insufficiency Current Visit: Yes Status: Acute Plan to address problem: Management as per primary and nephrology. (5) Upper abdominal pain Current Visit: Yes Status: Acute Plan to address problem: General surgery consulted. (6) NSTEMI (non-ST elevated myocardial infarction) Current Visit: No Status: Acute Plan to address problem: Management as per cardiology. (7) Hypertension Current Visit: No Status: Chronic Qualifiers: Hypertension type: essential hypertension Qualified Code(s): I10 - Essential (primary) hypertension Plan to address problem: Management as per primary care. Subjective Date of service: 03/10/21 Principal diagnosis: Ac. Hypoxemic Resp failure; SIRS; NSTEMI; CHF ; GRAY; HTN; Abdominal pain Interval history: This is an 89-year-old female presented to the ER with a complaint of upper abdominal pain. She indicates the pain is in the epigastric and right upper quadrant region. She states the pain has been there for about a month. She indicates it does not move anywhere. She saw her engineer technical staff, who reportedly ordered blood work, but she is not quite sure what other interventions have been recommended. She denies headache, neck pain, chest pain. She has no lower abdominal pain. She denies urinary symptoms. She has lower extremity edema which she thinks is constant, and she has chronic shortness of breath. She does not believe she has had loss of taste or smell. She does not believe she has had hematemesis, bright red blood per rectum, or melena. Patient has history of CHF, cardiac stents, HTN, Hyperlipidemia, GERD and patient is on Home o2. Patient denies smoking, alcohol or drug abuse. 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 No known drug allergies. Patient alert, awake and resting on 4 litres O2. O2 saturation 97%. BIPAP 16/8, rate 16, FIO2 40% stand by in the room. Patient Running low grade temp.. No leukocytosis. Chest xray done 03/02/21 reported Pulmonary vascular congestion with cardiomegaly. Nonspecific right basilar parenchymal disease possibly representing atelectasis. Clinical correlation recommended. Perfusion lung scan done on 03/03/21 reported low probability perfusion scan for pulmonary embolism. Patient is on I/V Solumedrol, S/C Heparin, Protonix, Albuterol inhaler Objective Vital Signs - 12hr 03/10/21 03/10/21 03/10/21 03:29 07:33 08:15 Temperature 97.7 F 98.6 F Pulse Rate 60 63 Pulse Rate [ 64 Bilateral] Respiratory 19 20 Rate Respiratory 20 Rate [Bilateral ] Blood Pressure 162/62 167/76 O2 Sat by Pulse 100 99 Oximetry 03/10/21 03/10/21 03/10/21 09:08 10:47 10:48 Temperature Pulse Rate 63 63 Pulse Rate [ Bilateral] Respiratory Rate Respiratory Rate [Bilateral ] Blood Pressure 167/76 167/76 O2 Sat by Pulse 99 Oximetry Constitutional: no acute distress, alert, other (elderly obese female with mildly increased respiratory effort at rest) Eyes: non-icteric ENT: oropharynx moist Neck: supple, no JVD Ascultation: Bilateral: diminished breath sounds, rhonchi (LLL > RLL), other (prolonged expiratory phase) Percussion: Bilateral: not dull Cardiovascular: regular rate and rhythm Gastrointestinal: normoactive bowel sounds, soft, non-tender, non-distended Integumentary: normal Extremities: no cyanosis, no edema, pulses normal, no ischemia or petechiae Neurologic: normal mental status, non-focal exam, pupils equal and round, motor strength normal and Psychiatric: mood appropriate, affect normal CBC and BMP: 03/08/21 04:30 03/08/21 04:30 Abnormal lab findings: Abnormal Labs 03/02/21 03/02/21 03/02/21 04:56 04:56 04:56 RBC 3.19 L MCV 98 H MCH 33 H RDW 15.7 H Lymph % (Auto) [place] % (Auto) 10.3 H Lymph # (Auto) Seg Neutrophils % Carbon Dioxide BUN 27 H Creatinine 1.6 H Glucose 105 H POC Glucose AST 41 H NT-Pro-B Natriuret Pep 4601 H 03/03/21 03/04/21 03/05/21 10:38 04:13 07:47 RBC MCV MCH RDW Lymph % (Auto) [place] % (Auto) Lymph # (Auto) Seg Neutrophils % Carbon Dioxide BUN 30 H 38 H Creatinine 1.7 H 1.7 H Glucose 148 H 153 H POC Glucose 124 H AST NT-Pro-B Natriuret Pep 03/05/21 03/05/21 03/08/21 13:27 15:09 04:30 RBC 3.42 L MCV MCH 33 H RDW Lymph % (Auto) 10.1 L [place] % (Auto) Lymph # (Auto) 0.7 L Seg Neutrophils % 83.4 H Carbon Dioxide BUN 44 H Creatinine 1.6 H Glucose 153 H POC Glucose 173 H AST NT-Pro-B Natriuret Pep 03/08/21 04:30 RBC MCV MCH RDW Lymph % (Auto) [place] % (Auto) Lymph # (Auto) Seg Neutrophils % Carbon Dioxide 34 H D BUN 34 H Creatinine Glucose 154 H POC Glucose AST NT-Pro-B Natriuret Pep Allied health notes reviewed: nursing
--- NOTE | 2021-03-11 10:37 | Electrocardiograph Report ---
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
--- NOTE | 2021-03-11 10:43 | Electrocardiograph Report ---
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
--- NOTE | 2021-03-16 09:02 | Fluoroscopy Report ---
UPPER GI HISTORY: epigastric pain. TECHNIQUE: Single and double contrast barium technique utilized to evaluate the esophagus, stomach, and duodenal C-loop. FINDINGS: To begin the exam, swallowing was evaluated in the lateral position under direct fluorosco py. Swallowing was normal. No mucosal irregularity, mass, mass effect, or critical stenosis. There were no abnormal tertiary c ontractions as seen with dysmotility. No gastroesophageal reflux. IMPRESSION: Unremarkable exam. Fluoroscopic time: 2.0 minutes Number of fluoroscopic images: 33 Signer Name: Henok Liz Jr, MD Signed: 03/16/2021 8:58 AM Workstation Name: [id number]
== END 2021-03-10 17:50 | disposition home health service (06) | DRG 291 ==
LOC: ED 00:38 → 4A 07:50
PROVIDERS: ADMIT Internal Medicine; ATTEND Internal Medicine
PROC: 5A09457 Assistance with Respiratory Ventilation, 24-96 Consecutive Hours, Continuous Positive Airway Pressure (ICD-10-PCS; principal; 2021-03-02)
PROC: 5A09457 Assistance with Respiratory Ventilation, 24-96 Consecutive Hours, Continuous Positive Airway Pressure (ICD-10-PCS; 2021-03-07)
DX: I11.0 Hypertensive heart disease with heart failure (principal); J96.01 Acute respiratory failure with hypoxia; N17.0 Acute kidney failure with tubular necrosis; J18.9 Pneumonia, unspecified organism; I26.99 Other pulmonary embolism without acute cor pulmonale; R65.10 Systemic inflammatory response syndrome (SIRS) of non-infectious origin without acute organ dysfunction; B37.0 Candidal stomatitis; I50.33 Acute on chronic diastolic (congestive) heart failure; Z20.822 Contact with and (suspected) exposure to COVID-19; I25.10 Atherosclerotic heart disease of native coronary artery without angina pectoris; J44.9 Chronic obstructive pulmonary disease, unspecified; E66.01 Morbid (severe) obesity due to excess calories; K21.00 Gastro-esophageal reflux disease with esophagitis, without bleeding; R13.10 Dysphagia, unspecified; R53.81 Other malaise; K27.9 Peptic ulcer, site unspecified, unspecified as acute or chronic, without hemorrhage or perforation; M19.90 Unspecified osteoarthritis, unspecified site; Z79.899 Other long term (current) drug therapy; Z95.5 Presence of coronary angioplasty implant and graft; Z79.82 Long term (current) use of aspirin; Z68.34 Body mass index [BMI] 34.0-34.9, adult; Z82.49 Family history of ischemic heart disease and other diseases of the circulatory system
CPT/HCPCS: 36415; 71045; 74176; 74246; 76705; 78580; 80048; 80053; 81001; 82140; 82550; 82962; 83690; 83735; 83880; 84443; 84484; 85025; 87040; 87086; 93005; 93306; 94640; 94660; 96374; 96375; G0378; A9540; C9113; J0456; J0696; J1450; J1644; J1940; J2920; J2930; U0003

== ENCOUNTER 2021-04-06 19:09 | Inpatient (IN) | payer MEDICARE ==
--- NOTE | 2021-04-06 20:01 | Event Note ---
ED Screening Note ED Screening Note: Patient is a 89-year-old female presents emergency room complaints of epigastric abdominal pain that began 3 days ago She has associated worsening of her shortness of breath and feels like her legs are swelling she states that she has increased her Lasix the last 3 days but does not appear to be improving per patient She wears home oxygen she denies CP This initial assessment/diagnostic orders/clinical plan/treatment(s) is/are subject to change based on patients health status, clinical progression and re- assessment by fellow clinical providers in the ED. Further treatment and workup at subsequent clinical providers discretion. Patient/guardian urged not to elope from the ED as their condition may be serious if not clinically assessed and managed. Initial orders include: Labs, urine, x-ray, EKG
--- NOTE | 2021-04-06 20:35 | XRay Report ---
CHEST / ABDOMEN SERIES INDICATION / CLINICAL INFORMATION: epigastric abd pain, sob, leg swelling. COMPARISON: Chest radiograph 03/02/2021 FINDINGS: SUPPORT DEVICES: None. HEART / MEDIASTINUM: Cardiomegaly LUNGS / PLEURA: Mild pulmonary edema. No significant pleural effusion. No pneumothorax. TUBES / LINES: None. BOWEL GAS PATTERN: No significant abnormality. FREE AIR / EXTRALUMINAL GAS: None seen. 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 IMPRESSION: 1. Cardiomegaly with mild pulmonary edema. 2. No acute findings in the abdomen or pelvis. Signer Name: Erick Montes De Oca MD Signed: 04/06/2021 8:30 PM Workstation Name: [id number]
[2021-04-06 20:44] LABS: Basophils # (Auto) 0.1 K/mm3 (0.0-0.1); Basophils % (Auto) 0.7 % (0.0-1.8); Eosinophils # (Auto) 0.3 K/mm3 (0.0-0.4); Eosinophils % (Auto) 3.4 % (0.0-4.3); Hematocrit 33.2 % (30.3-42.9); Lymphocytes # (Auto) 1.9 K/mm3 (1.2-5.4); Lymphocytes % (Auto) 21.9 % (13.4-35.0); Mean Corpuscular HGB Conc 33 % (30-34); Mean Corpuscular Volume 98 fl (79-97); Monocytes # (Auto) 1.1 K/mm3 (0.0-0.8); Monocytes % (Auto) 12.7 % (0.0-7.3); Platelet Count 442 K/mm3 (140-440); Red Blood Count 3.38 M/mm3 (3.65-5.03)
[2021-04-06 20:50] LABS: Alanine Aminotransferase 21 units/L (7-56); BUN/Creatinine Ratio 14; Blood Urea Nitrogen 14 mg/dL (7-17); Calcium 8.7 mg/dL (8.4-10.2); Hemolysis Index 7
[2021-04-07] MEDS ORDERED: POTASSIUM CHLORIDE ER 20 MEQ TAB PO ONE ×2 (00:27→03:17)
[2021-04-07] MEDS ORDERED: FUROSEMIDE 40 MG/4 ML INJ IV ONE (00:28)
--- NOTE | 2021-04-07 00:30 | Emergency Department Report ---
ED Shortness of Breath HPI - General Chief Complaint: Abdominal Pain Stated Complaint: STOMACH PAIN Time Seen by Provider: 04/06/21 19:59 Source: patient Mode of arrival: Wheelchair Limitations: No Limitations - History of Present Illness Initial Comments: 89-year-old female, history of hypertension CAD with stents, CHF on 3L home O2, GERD, COVID-19, presents to ED with shortness of breath x3 days. Patient states she feels like her lungs have fluid in them. Patient reports some swelling in her legs as well. Patient states she increased her Lasix 20 mg dose to 40 mg twice daily per her physician, however this has not seemed to help. Patient states she is not urinating as she should. Patient reports a dry cough. She denies any fever or chest pain. Patient is reporting some epigastric abdominal pain that has been ongoing. Patient was admitted last month and underwent a work-up for her abdominal pain. Patient states they were unable to find a cause for her abdominal pain. Patient states her pain is the same as it was when she was here last month she reports nausea, denies vomiting. Patient reports she has not yet received her COVID-19 vaccine. Complaint: shortness of breath -: days(s) (3) Severity: moderate Quality: aching Consistency: intermittent Improves With: rest Worsens With: exertion Known History Of: congestive heart failure Associated Symptoms: cough - Related Data Home Oxygen Therapy: Yes Home Oxygen Amount: 3 Liters Previous Rx's Medication Instructions Recorded Last Taken Type Aspirin 325 mg PO QDAY #30 tablet 04/08/15 3 Days Ago Rx ~03/02/21 Citalopram [celeXA] 10 mg PO DAILY #30 tablet 04/08/15 3 Days Ago Rx ~03/02/21 Clopidogrel [Plavix] 75 mg PO QDAY #30 tablet 04/08/15 3 Days Ago Rx ~03/02/21 Metoprolol [Lopressor TAB] 25 mg PO BID #60 tablet 04/08/15 3 Days Ago Rx ~03/02/21 lisinopriL [Zestril TAB] 20 mg PO QDAY #30 tablet 04/08/15 3 Days Ago Rx ~03/02/21 amLODIPine 10 mg PO QDAY #30 tablet 04/07/20 3 Days Ago Rx ~03/02/21 Arformoterol Nebu [Brovana Nebu] 15 mcg IH Q12HRT #60 ml 03/10/21 Unknown Rx AtorvaSTATin [Lipitor] 20 mg PO QHS #30 tablet 03/10/21 Unknown Rx Furosemide [Lasix TAB] 20 mg PO QDAY #30 tablet 03/10/21 Unknown Rx Ipratropium/Albuterol Sulfate 1 ampul IH Q6HR #60 ampul.neb 03/10/21 Unknown Rx [DUONEB *Not for PRN Use*] Nebulizer and Compressor [[place] 1 each MC Q6H #1 each 03/10/21 Unknown Rx Choice Nebulizer] Nystatin [Nystatin SUSP] 500,000 unit PO TID #6 udc 03/10/21 Unknown Rx Pantoprazole [Protonix TAB] 40 mg PO DAILY #30 tablet 03/10/21 Unknown Rx Sucralfate [Carafate] 1 gm PO ACHS #120 tablet 03/10/21 Unknown Rx methylPREDNISolone [Medrol 4MG 4 mg PO DAILY #1 tab.ds.pk 03/10/21 Unknown Rx DOSEPAK (21 tabs)] Allergies Allergy/AdvReac Type Severity Reaction Status Date / Time No Known Allergies Allergy Verified 08/04/14 12:40 ED Review of Systems ROS: Stated complaint: STOMACH PAIN Other details as noted in HPI Comment: All other systems reviewed and negative Constitutional: denies: fever Respiratory: cough, SOB with exertion Cardiovascular: edema. denies: chest pain Gastrointestinal: abdominal pain, nausea. denies: vomiting ED Past Medical Hx - Past Medical History Previous Medical History?: Yes Hx Hypertension: Yes Hx Heart Attack/AMI: No Hx Congestive Heart Failure: Yes Hx GERD: Yes Hx Renal Disease: No Hx Arthritis: Yes Hx Seizures: No Hx Asthma: No Hx COPD: No Hx Tuberculosis: No Hx HIV: No - Surgical History Past Surgical History?: Yes Additional Surgical History: eye - Social History Smoking Status: Never Smoker - Medications Home Medications: Home Medications Medication Instructions Recorded Confirmed Last Taken Type Aspirin 325 mg PO QDAY #30 tablet 04/08/15 03/05/21 3 Days Ago Rx ~03/02/21 Citalopram [celeXA] 10 mg PO DAILY #30 tablet 04/08/15 03/05/21 3 Days Ago Rx ~03/02/21 Clopidogrel [Plavix] 75 mg PO QDAY #30 tablet 04/08/15 03/05/21 3 Days Ago Rx ~03/02/21 Metoprolol [Lopressor TAB] 25 mg PO BID #60 tablet 04/08/15 03/05/21 3 Days Ago Rx ~03/02/21 lisinopriL [Zestril TAB] 20 mg PO QDAY #30 tablet 04/08/15 03/05/21 3 Days Ago Rx ~03/02/21 amLODIPine 10 mg PO QDAY #30 tablet 04/07/20 03/05/21 3 Days Ago Rx ~03/02/21 Arformoterol Nebu [Brovana Nebu] 15 mcg IH Q12HRT #60 ml 03/10/21 Unknown Rx AtorvaSTATin [Lipitor] 20 mg PO QHS #30 tablet 03/10/21 Unknown Rx Furosemide [Lasix TAB] 20 mg PO QDAY #30 tablet 03/10/21 Unknown Rx Ipratropium/Albuterol Sulfate 1 ampul IH Q6HR #60 ampul.neb 03/10/21 Unknown Rx [DUONEB *Not for PRN Use*] Nebulizer and Compressor [[place] 1 each MC Q6H #1 each 03/10/21 Unknown Rx Choice Nebulizer] Nystatin [Nystatin SUSP] 500,000 unit PO TID #6 udc 03/10/21 Unknown Rx Pantoprazole [Protonix TAB] 40 mg PO DAILY #30 tablet 03/10/21 Unknown Rx Sucralfate [Carafate] 1 gm PO ACHS #120 tablet 03/10/21 Unknown Rx methylPREDNISolone [Medrol 4MG 4 mg PO DAILY #1 tab.ds.pk 03/10/21 Unknown Rx DOSEPAK (21 tabs)] ED Physical Exam - General Limitations: No Limitations General appearance: alert, in no apparent distress - Head Head exam: Present: atraumatic, normocephalic - Eye Eye exam: Present: normal appearance, EOMI - ENT ENT exam: Present: mucous membranes moist - Neck Neck exam: Present: normal inspection - Respiratory Respiratory exam: Present: rales (scant), other (Slightly tachypneic) - Cardiovascular Cardiovascular Exam: Present: regular rate, normal rhythm - GI/Abdominal GI/Abdominal exam: Present: soft. Absent: distended, tenderness - Extremities Exam Extremities exam: Present: pedal edema - Neurological Exam Neurological exam: Present: alert, oriented X3 - Psychiatric Psychiatric exam: Present: normal affect, normal mood - Skin Skin exam: Present: warm, dry, intact, normal color ED Course Vital Signs 04/06/21 04/07/21 19:56 01:20 Temperature 98.6 F 36.8 F L Pulse Rate 78 79 Respiratory 16 16 Rate Blood Pressure 143/67 Blood Pressure 163/73 [Right] O2 Sat by Pulse 95 92 Oximetry ED Medical Decision Making - Lab Data Result diagrams: 04/06/21 20:10 04/06/21 20:10 - EKG Data -: EKG Interpreted by Me EKG shows normal: sinus rhythm, axis, intervals, QRS complexes, ST-T waves Rate: normal - EKG Data Interpretation: LVH, other (old inferior infarct) - Radiology Data Radiology results: report reviewed, image reviewed - Medical Decision Making 89-year-old female presents to ED with abdominal pain and shortness of breath. Patient reports her abdominal pain is unchanged from 1 month ago, when she was admitted for a GI work-up to find the source of her abdominal pain. No source was found. Patient states her pain is the same character located in the same location. Patient also with CHF exacerbation. She is dyspneic, with elevated BNP, and pulmonary edema on chest x-ray. EKG shows no ST changes. Troponin is normal. Patient given IV Lasix here in the ED. She will be admitted by hospitalist, Dr. Perry, for further management. - Differential Diagnosis Pancreatitis, GERD, ACS, CHF, pneumonia Critical care attestation.: If time is entered above; I have spent that time in minutes in the direct care of this critically ill patient, excluding procedure time. ED Disposition Clinical Impression: Upper abdominal pain, Acute exacerbation of CHF (congestive heart failure), Hypokalemia Disposition: OP ADMIT IP TO THIS HOSP Is pt being admited?: Yes Condition: Stable Time of Disposition: 00:44
[2021-04-07] MEDS ORDERED: MORPHINE 2 MG/1 ML INJ IV PRN (01:58)
[2021-04-07] MEDS ORDERED: NITROGLYCERIN 0.4 MG TAB SUBL SL PRN (01:58)
[2021-04-07] MEDS ORDERED: hydrALAZINE 20 MG/1 ML INJ IV PRN (02:05)
--- NOTE | 2021-04-07 02:10 | History and Physical Report ---
History of Present Illness Date of examination: 04/07/21 Date of admission: 04/07/21 00:44 Chief complaint: Abdominal pain History of present illness: 89-year-old female with past medical history of hypertension CAD with stents, CHF on 3L home O2, GERD, COVID-19 was brought to the emergency room because of shortness of breath x3 days. Patient states she feels like her lungs have fluid in them. Patient reports some swelling in her legs as well. Patient states she increased her Lasix 20 mg dose to 40 mg twice daily per her physician, however this has not seemed to help. Patient states she is not urinating as she should. Patient reports a dry cough. She denies any fever or chest pain. Patient is reporting some epigastric abdominal pain that has been ongoing. Patient was admitted last month and underwent a work-up for her abdominal pain. Patient states they were unable to find a cause for her abdominal pain. Patient states her pain is the same as it was when she was here last month she reports nausea, denies vomiting. Patient reports she has not yet received her COVID-19 vaccine. In the emergency room patient is found to have acute CHF exacerbation. Patient BNP is 4589, chest x-ray compatible with CHF Past History Past Medical History: arthritis, CAD, GERD, heart failure, hypertension, other (COVID-19) Medications and Allergies Allergies Allergy/AdvReac Type Severity Reaction Status Date / Time No Known Allergies Allergy Verified 08/04/14 12:40 Home Medications Medication Instructions Recorded Confirmed Last Taken Type Aspirin 325 mg PO QDAY #30 tablet 04/08/15 03/05/21 3 Days Ago Rx ~03/02/21 Citalopram [celeXA] 10 mg PO DAILY #30 tablet 04/08/15 03/05/21 3 Days Ago Rx ~03/02/21 Clopidogrel [Plavix] 75 mg PO QDAY #30 tablet 04/08/15 03/05/21 3 Days Ago Rx ~03/02/21 Metoprolol [Lopressor TAB] 25 mg PO BID #60 tablet 04/08/15 03/05/21 3 Days Ago Rx ~03/02/21 lisinopriL [Zestril TAB] 20 mg PO QDAY #30 tablet 04/08/15 03/05/21 3 Days Ago Rx ~03/02/21 amLODIPine 10 mg PO QDAY #30 tablet 04/07/20 03/05/21 3 Days Ago Rx ~03/02/21 Arformoterol Nebu [Brovana Nebu] 15 mcg IH Q12HRT #60 ml 03/10/21 Unknown Rx AtorvaSTATin [Lipitor] 20 mg PO QHS #30 tablet 03/10/21 Unknown Rx Furosemide [Lasix TAB] 20 mg PO QDAY #30 tablet 03/10/21 Unknown Rx Ipratropium/Albuterol Sulfate 1 ampul IH Q6HR #60 ampul.neb 03/10/21 Unknown Rx [DUONEB *Not for PRN Use*] Nebulizer and Compressor [[place] 1 each MC Q6H #1 each 03/10/21 Unknown Rx Choice Nebulizer] Nystatin [Nystatin SUSP] 500,000 unit PO TID #6 udc 03/10/21 Unknown Rx Pantoprazole [Protonix TAB] 40 mg PO DAILY #30 tablet 03/10/21 Unknown Rx Sucralfate [Carafate] 1 gm PO ACHS #120 tablet 03/10/21 Unknown Rx methylPREDNISolone [Medrol 4MG 4 mg PO DAILY #1 tab.ds.pk 03/10/21 Unknown Rx DOSEPAK (21 tabs)] Review of Systems Cardiovascular: orthopnea, edema, shortness of breath, dyspnea on exertion Respiratory: shortness of breath, dyspnea on exertion Gastrointestinal: abdominal pain, nausea Exam - Constitutional Vitals: Temp Pulse Resp BP Pulse Ox 36.8 F L 79 16 163/73 92 04/07/21 01:20 04/07/21 01:20 04/07/21 01:20 04/07/21 01:20 04/07/21 01:20 General appearance: Present: no acute distress, well-nourished - EENT Eyes: Present: PERRL ENT: hearing intact, clear oral mucosa - Neck Neck: Present: supple, normal ROM - Respiratory Respiratory effort: normal Respiratory: bilateral: CTA - Cardiovascular Heart Sounds: Present: S1 & S2. Absent: rub, click - Extremities Extremities: pulses symmetrical, No edema Peripheral Pulses: within normal limits - Abdominal General gastrointestinal: Present: soft, tender, non-distended, normal bowel sounds Female genitourinary: Present: normal - Integumentary Integumentary: Present: clear, warm, dry - Musculoskeletal Musculoskeletal: gait normal, strength equal bilaterally - Psychiatric Psychiatric: appropriate mood/affect, intact judgment & insight - Neurologic Neurologic: CNII-XII intact, moves all extremities HEART Score - HEART Score Troponin: Troponin T 0.010 ng/mL (0.00-0.029) 04/06/21 20:10 Results - Labs CBC & Chem 7: 04/06/21 20:10 04/06/21 20:10 Labs: Laboratory Last Values WBC 8.9 K/mm3 (4.5-11.0) 04/06/21 20:10 RBC 3.38 M/mm3 (3.65-5.03) L 04/06/21 20:10 Hgb 11.0 gm/dl (10.1-14.3) 04/06/21 20:10 Hct 33.2 % (30.3-42.9) 04/06/21 20:10 MCV 98 fl (79-97) H 04/06/21 20:10 MCH 32 pg (28-32) 04/06/21 20:10 MCHC 33 % (30-34) 04/06/21 20:10 RDW 15.0 % (13.2-15.2) 04/06/21 20:10 Plt Count 442 K/mm3 (140-440) H 04/06/21 20:10 Lymph % (Auto) 21.9 % (13.4-35.0) 04/06/21 20:10 [place] % (Auto) 12.7 % (0.0-7.3) H 04/06/21 20:10 Eos % (Auto) 3.4 % (0.0-4.3) 04/06/21 20:10 Baso % (Auto) 0.7 % (0.0-1.8) 04/06/21 20:10 Lymph # (Auto) 1.9 K/mm3 (1.2-5.4) 04/06/21 20:10 [place] # (Auto) 1.1 K/mm3 (0.0-0.8) H 04/06/21 20:10 Eos # (Auto) 0.3 K/mm3 (0.0-0.4) 04/06/21 20:10 Baso # (Auto) 0.1 K/mm3 (0.0-0.1) 04/06/21 20:10 Seg Neutrophils % 61.3 % (40.0-70.0) 04/06/21 20:10 Seg Neutrophils # 5.4 K/mm3 (1.8-7.7) 04/06/21 20:10 Sodium 141 mmol/L (137-145) 04/06/21 20:10 Potassium 3.2 mmol/L (3.6-5.0) L 04/06/21 20:10 Chloride 99.9 mmol/L (98-107) 04/06/21 20:10 Carbon Dioxide 27 mmol/L (22-30) 04/06/21 20:10 Anion Gap 17 mmol/L 04/06/21 20:10 BUN 14 mg/dL (7-17) 04/06/21 20:10 Creatinine 1.0 mg/dL (0.6-1.2) 04/06/21 20:10 Estimated GFR > 60 ml/min 04/06/21 20:10 BUN/Creatinine Ratio 14 % 04/06/21 20:10 Glucose 110 mg/dL (65-100) H 04/06/21 20:10 Calcium 8.7 mg/dL (8.4-10.2) 04/06/21 20:10 Total Bilirubin 0.50 mg/dL (0.1-1.2) 04/06/21 20:10 AST 22 units/L (5-40) 04/06/21 20:10 ALT 21 units/L (7-56) 04/06/21 20:10 Alkaline Phosphatase 102 units/L (35-129) 04/06/21 20:10 Troponin T 0.010 ng/mL (0.00-0.029) 04/06/21 20:10 NT-Pro-B Natriuret Pep 4589 pg/mL (0-900) H 04/06/21 20:10 Total Protein 7.7 g/dL (6.3-8.2) 04/06/21 20:10 Albumin 4.0 g/dL (3.9-5) 04/06/21 20:10 Albumin/Globulin Ratio 1.1 % 04/06/21 20:10 Lipase 30 units/L (13-60) 04/06/21 20:10 - Imaging and Cardiology Chest x-ray: report reviewed Abdominal x-ray: report reviewed Assessment and Plan VTE prophylaxis?: Chemical Plan of care discussed with patient/family: Yes - Patient Problems (1) Acute exacerbation of CHF (congestive heart failure) Current Visit: Yes Status: Acute Plan to address problem: Admit to the medical telemetry. Put the patient on CHF pathway. Cardiac diet. Fluid restriction. Maintain input output. Lasix 40 mg IV every 12 hours. Echocardiogram. Reconsult cardiology to see the patient (2) Hypokalemia Current Visit: Yes Status: Acute Plan to address problem: Potassium is supplemented recheck BMP in the morning (3) Epigastric abdominal pain Current Visit: No Status: Acute Plan to address problem: Protonix 40 mg p.o. daily. Carafate 1 gm p.o. 4 times daily. We will monitor the patient closely. Will consult GI (4) GERD (gastroesophageal reflux disease) Current Visit: No Status: Acute Plan to address problem: Protonix 40 mg p.o. daily. Sucralfate 1 g p.o. 4 times daily (5) Hypertension Current Visit: No Status: Chronic Qualifiers: Hypertension type: essential hypertension Qualified Code(s): I10 - Essential (primary) hypertension Plan to address problem: Amlodipine 10 mg p.o. daily. Lisinopril 20 mg p.o. daily. Hydralazine 10 mg IV every 6 hours as needed. We will monitor the blood pressure closely (6) DVT prophylaxis Current Visit: No Status: Acute Plan to address problem: Heparin 5000 units subcu every 8 hours for DVT prophylaxis. Protonix 40 mg p.o. daily for GI prophylaxis. Patient is a full code
[2021-04-07] MEDS: IPRATROPIUM/ALBUTEROL SULFATE 3 ML AMPUL.NEB IH SCH ×4 (02:49→20:49)
[2021-04-07] MEDS: HEPARIN 5,000 UNIT/1 ML VIAL SUB-Q SCH ×3 (05:28→21:31)
[2021-04-07] MEDS: FUROSEMIDE 40 MG/4 ML INJ IV SCH ×2 (05:28→17:27)
[2021-04-07 06:56] LABS: Bacteria,Urine 1+ /HPF (Negative); Bilirubin,Urine NEG (Negative); Blood,Urine NEG (Negative); Color,Urine Colorless (Yellow); Protein,Urine <15 mg/dL mg/dL (Negative); Urobilinogen,Urine < 2.0 mg/dL (<2.0); WBC,Urine < 1.0 /HPF (0.0-6.0)
[2021-04-07] MEDS ORDERED: SUCRALFATE 1 GM TAB PO SCH (07:30)
[2021-04-07] MEDS: ARFORMOTEROL 15 MCG/2 ML NEBU IH SCH ×2 (08:18→20:49)
[2021-04-07] MEDS: METOPROLOL TARTRATE 25 MG TAB PO SCH ×2 (08:23→17:27)
[2021-04-07] MEDS: NYSTATIN 500,000 UNIT/5 ML ORAL LIQD PO SCH ×3 (08:24→21:31)
[2021-04-07] MEDS: CLOPIDOGREL 75 MG TAB PO SCH (09:22)
[2021-04-07] MEDS: amLODIPine 10 MG TAB PO SCH (09:22)
[2021-04-07] MEDS: LISINOPRIL 20 MG TAB PO SCH (09:23)
[2021-04-07] MEDS: ASPIRIN 325 MG TAB PO SCH (09:23)
[2021-04-07] MEDS: PANTOPRAZOLE 40 MG TAB PO SCH (09:24)
--- NOTE | 2021-04-07 09:50 | Electrocardiograph Report ---
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
--- NOTE | 2021-04-07 09:54 | Electrocardiograph Report ---
[facility] Test Date: 2021-04-07 Test Time: 07:28:44 Pat Name: MARGUERITE SCHULZ Department: Room: A473 1 Gender: F [employer]cher: ABBY : 1930 Requested By: RAVEN DEAN Order Number: [id number] Reading MD: Oscar Cruz Measurements Intervals [place] Rate: 100 P: 93 [place]: 139 QRS: 20 QRSD: 87 T: 173 QT: 362 QTc: 466 Interpretive Statements Sinus tachycardia Compared to ECG 04/06/2021 20:07:58 Sinus rhythm no longer present No significant change except rate is slightly faster. Electronically Signed On 04-07-2021 9:53:46 EDT by Oscar Cruz
--- NOTE | 2021-04-07 10:03 | Consultation ---
History of Present Illness Consult date: 04/07/21 Consult reason: congestive heart failure History of present illness: This is an 89-year-old woman with a history of coronary artery disease and is followed by Dr Whitfield on a routine basis. November of 2018 she had a negative thallium stress test. An echo done at this hospital 1 month ago showed a normal left ventricular ejection fraction at 55%. She also is on home oxygen for chronic respiratory failure. She presented with abdominal pain, shortness of breath, cough, and 3 days of lower extremity edema. There is also low-grade fever with a maximum temperature of 100.8. Chest x-ray reports cardiomegaly with mild interstitial edema. Patient denies chest pain, palpitations, and dizziness. An ECG is sinus rhythm with LVH. Past History Past Medical History: arthritis, CAD, GERD, hypertension Medications and Allergies Allergies Allergy/AdvReac Type Severity Reaction Status Date / Time No Known Allergies Allergy Verified 08/04/14 12:40 Home Medications Medication Instructions Recorded Confirmed Last Taken Type Aspirin 325 mg PO QDAY #30 tablet 04/08/15 03/05/21 3 Days Ago Rx ~03/02/21 Citalopram [celeXA] 10 mg PO DAILY #30 tablet 04/08/15 03/05/21 3 Days Ago Rx ~03/02/21 Clopidogrel [Plavix] 75 mg PO QDAY #30 tablet 04/08/15 03/05/21 3 Days Ago Rx ~03/02/21 Metoprolol [Lopressor TAB] 25 mg PO BID #60 tablet 04/08/15 03/05/21 3 Days Ago Rx ~03/02/21 lisinopriL [Zestril TAB] 20 mg PO QDAY #30 tablet 04/08/15 03/05/21 3 Days Ago Rx ~03/02/21 amLODIPine 10 mg PO QDAY #30 tablet 04/07/20 03/05/21 3 Days Ago Rx ~03/02/21 Arformoterol Nebu [Brovana Nebu] 15 mcg IH Q12HRT #60 ml 03/10/21 Unknown Rx AtorvaSTATin [Lipitor] 20 mg PO QHS #30 tablet 03/10/21 Unknown Rx Furosemide [Lasix TAB] 20 mg PO QDAY #30 tablet 03/10/21 Unknown Rx Ipratropium/Albuterol Sulfate 1 ampul IH Q6HR #60 ampul.neb 03/10/21 Unknown Rx [DUONEB *Not for PRN Use*] Nebulizer and Compressor [[place] 1 each MC Q6H #1 each 03/10/21 Unknown Rx Choice Nebulizer] Nystatin [Nystatin SUSP] 500,000 unit PO TID #6 udc 03/10/21 Unknown Rx Pantoprazole [Protonix TAB] 40 mg PO DAILY #30 tablet 03/10/21 Unknown Rx Sucralfate [Carafate] 1 gm PO ACHS #120 tablet 03/10/21 Unknown Rx methylPREDNISolone [Medrol 4MG 4 mg PO DAILY #1 tab.ds.pk 03/10/21 Unknown Rx DOSEPAK (21 tabs)] Active Meds: Active Medications Albuterol/Ipratropium (Ipratropium/Albuterol Sulfate 3 Ml Ampul.Neb) 1 ampul IH Q6HR [facility] Last Admin: 04/07/21 08:20 Dose: 1 ampul Documented by: Amlodipine Besylate (Amlodipine 10 Mg Tab) 10 mg PO QDAY [facility] Last Admin: 04/07/21 09:22 Dose: 10 mg Documented by: Arformoterol Tartrate (Arformoterol 15 Mcg/2 Ml Nebu) 15 mcg IH Q12HRT [facility] Last Admin: 04/07/21 08:18 Dose: 15 mcg Documented by: Aspirin (Aspirin 325 Mg Tab) 325 mg PO QDAY [facility] Last Admin: 04/07/21 09:23 Dose: 325 mg Documented by: Atorvastatin Calcium (Atorvastatin 20 Mg Tab) 20 mg PO QHS [facility] Citalopram Hydrobromide (Citalopram 10 Mg Tab) 10 mg PO DAILY [facility] Clopidogrel Bisulfate (Clopidogrel 75 Mg Tab) 75 mg PO QDAY [facility] Last Admin: 04/07/21 09:22 Dose: 75 mg Documented by: Furosemide (Furosemide 40 Mg/4 Ml Inj) 40 mg IV BID@0600,1800 [facility] Last Admin: 04/07/21 05:28 Dose: 40 mg Documented by: Heparin Sodium (Porcine) (Heparin 5,000 Unit/1 Ml Vial) 5,000 unit SUB-Q Q8HR [facility] Last Admin: 04/07/21 05:28 Dose: 5,000 unit Documented by: Hydralazine HCl (Hydralazine 20 Mg/1 Ml Inj) 10 mg IV Q6H PRN PRN Reason: Blood Pressure Last Admin: 04/07/21 05:28 Dose: 10 mg Documented by: Lisinopril (Lisinopril 20 Mg Tab) 20 mg PO QDAY [facility] Last Admin: 04/07/21 09:23 Dose: 20 mg Documented by: Metoprolol Tartrate (Metoprolol Tartrate 25 Mg Tab) 25 mg PO BID@0800,1700 [facility] Last Admin: 04/07/21 08:23 Dose: 25 mg Documented by: Morphine Sulfate (Morphine 2 Mg/1 Ml Inj) 2 mg IV Q5MIN PRN PRN Reason: Chest Pain unrelieved by NTG Last Admin: 04/07/21 07:21 Dose: 2 mg Documented by: Nitroglycerin (Nitroglycerin 0.4 Mg Tab Subl) 0.4 mg SL .Q5MIN PRN PRN Reason: Chest Pain Nystatin (Nystatin 500,000 Unit/5 Ml Oral Liqd) 500,000 unit PO TID [facility] Last Admin: 04/07/21 08:24 Dose: 500,000 unit Documented by: Pantoprazole Sodium (Pantoprazole 40 Mg Tab) 40 mg PO DAILY [facility] Last Admin: 04/07/21 09:24 Dose: 40 mg Documented by: Sucralfate (Sucralfate 1 Gm Tab) 1 gm PO ACHS [facility] Last Admin: 04/07/21 07:22 Dose: 1 gm Documented by: Review of Systems Cardiovascular: edema, shortness of breath (chronic), no chest pain, no palpitations Gastrointestinal: abdominal pain, no nausea, no vomiting Physical Examination Vital Signs Temp Pulse Resp BP Pulse Ox 98.6 F 78 16 143/67 95 04/06/21 19:56 04/06/21 19:56 04/06/21 19:56 04/06/21 19:56 04/06/21 19:56 General appearance: no acute distress HEENT: Positive: PERRL Neck: Positive: trachea midline Cardiac: Positive: Reg Rate and Rhythm Lungs: Positive: Decreased Breath Sounds Neuro: Positive: Grossly Intact Extremities: Present: +1 Edema Results 04/06/21 20:10 04/06/21 20:10 Cardiac Enzymes 04/06/21 Range/Units 20:10 AST 22 (5-40) units/L CBC 04/06/21 Range/Units 20:10 WBC 8.9 (4.5-11.0) K/mm3 RBC 3.38 L (3.65-5.03) M/mm3 Hgb 11.0 (10.1-14.3) gm/dl Hct 33.2 (30.3-42.9) % Plt Count 442 H (140-440) K/mm3 Lymph # (Auto) 1.9 (1.2-5.4) K/mm3 [place] # (Auto) 1.1 H (0.0-0.8) K/mm3 Eos # (Auto) 0.3 (0.0-0.4) K/mm3 Baso # (Auto) 0.1 (0.0-0.1) K/mm3 Comprehensive Metabolic Panel 04/06/21 Range/Units 20:10 Sodium 141 (137-145) mmol/L Potassium 3.2 L (3.6-5.0) mmol/L Chloride 99.9 (98-107) mmol/L Carbon Dioxide 27 (22-30) mmol/L BUN 14 (7-17) mg/dL Creatinine 1.0 (0.6-1.2) mg/dL Glucose 110 H (65-100) mg/dL Calcium 8.7 (8.4-10.2) mg/dL AST 22 (5-40) units/L ALT 21 (7-56) units/L Alkaline Phosphatase 102 (35-129) units/L Total Protein 7.7 (6.3-8.2) g/dL Albumin 4.0 (3.9-5) g/dL Assessment and Plan Shortness of breath with cough and fever Hx of chronic respiratory failure, on home oxygen 02/2021 echo: left ventricular ejection fraction has been well-preserved, estimated at 55%. There was mild TR and moderate pulmonary hypertension. Abdominal pain Hx of coronary artery disease negative thallium stress test in November 2018
--- NOTE | 2021-04-07 10:03 | Gastroenterology Consultation ---
History of Present Illness - Reason for Consult Consult date: 04/07/21 RUQ Pain Requesting physician: BENJY MCCARTNEY - History of Present Illness The patient is an 89 yo female seen last month (outpatient/inpatient) for RUQ and epigastric pain. This is associated with nausea but no vomiting. She has not had weight loss, and antiacids have not helped. She had a negative CT and UGI series; an US showed GB sludge but no stones. She had a mild fever on admit this time (admitted for CHF flare, not pain; see Cards notes). She says the pain is worse with eating, and leads to anorexia. There is no blood in the BM. She has had no prior abdominal surgery other than ROSARIO. Her LFTs were WNL. Past History Past Medical History: arthritis, CAD, GERD, heart failure, hypertension, other (COVID-19) Past Surgical History: hysterectomy, Other (Cardiac stents) Social history: denies: smoking, alcohol abuse Family history: no significant family history Medications and Allergies Allergies Allergy/AdvReac Type Severity Reaction Status Date / Time No Known Allergies Allergy Verified 08/04/14 12:40 Home Medications Medication Instructions Recorded Confirmed Last Taken Type Aspirin 325 mg PO QDAY #30 tablet 04/08/15 03/05/21 3 Days Ago Rx ~03/02/21 Citalopram [celeXA] 10 mg PO DAILY #30 tablet 04/08/15 03/05/21 3 Days Ago Rx ~03/02/21 Clopidogrel [Plavix] 75 mg PO QDAY #30 tablet 04/08/15 03/05/21 3 Days Ago Rx ~03/02/21 Metoprolol [Lopressor TAB] 25 mg PO BID #60 tablet 04/08/15 03/05/21 3 Days Ago Rx ~03/02/21 lisinopriL [Zestril TAB] 20 mg PO QDAY #30 tablet 04/08/15 03/05/21 3 Days Ago Rx ~03/02/21 amLODIPine 10 mg PO QDAY #30 tablet 04/07/20 03/05/21 3 Days Ago Rx ~03/02/21 Arformoterol Nebu [Brovana Nebu] 15 mcg IH Q12HRT #60 ml 03/10/21 Unknown Rx AtorvaSTATin [Lipitor] 20 mg PO QHS #30 tablet 03/10/21 Unknown Rx Furosemide [Lasix TAB] 20 mg PO QDAY #30 tablet 03/10/21 Unknown Rx Ipratropium/Albuterol Sulfate 1 ampul IH Q6HR #60 ampul.neb 03/10/21 Unknown Rx [DUONEB *Not for PRN Use*] Nebulizer and Compressor [[place] 1 each MC Q6H #1 each 03/10/21 Unknown Rx Choice Nebulizer] Nystatin [Nystatin SUSP] 500,000 unit PO TID #6 udc 03/10/21 Unknown Rx Pantoprazole [Protonix TAB] 40 mg PO DAILY #30 tablet 03/10/21 Unknown Rx Sucralfate [Carafate] 1 gm PO ACHS #120 tablet 03/10/21 Unknown Rx methylPREDNISolone [Medrol 4MG 4 mg PO DAILY #1 tab.ds.pk 03/10/21 Unknown Rx DOSEPAK (21 tabs)] Active Meds: Active Medications Albuterol/Ipratropium (Ipratropium/Albuterol Sulfate 3 Ml Ampul.Neb) 1 ampul IH Q6HR [facility] Last Admin: 04/07/21 08:20 Dose: 1 ampul Documented by: Amlodipine Besylate (Amlodipine 10 Mg Tab) 10 mg PO QDAY [facility] Last Admin: 04/07/21 09:22 Dose: 10 mg Documented by: Arformoterol Tartrate (Arformoterol 15 Mcg/2 Ml Nebu) 15 mcg IH Q12HRT [facility] Last Admin: 04/07/21 08:18 Dose: 15 mcg Documented by: Aspirin (Aspirin 325 Mg Tab) 325 mg PO QDAY [facility] Last Admin: 04/07/21 09:23 Dose: 325 mg Documented by: Atorvastatin Calcium (Atorvastatin 20 Mg Tab) 20 mg PO QHS [facility] Citalopram Hydrobromide (Citalopram 10 Mg Tab) 10 mg PO DAILY [facility] Clopidogrel Bisulfate (Clopidogrel 75 Mg Tab) 75 mg PO QDAY [facility] Last Admin: 04/07/21 09:22 Dose: 75 mg Documented by: Furosemide (Furosemide 40 Mg/4 Ml Inj) 40 mg IV BID@0600,1800 [facility] Last Admin: 04/07/21 05:28 Dose: 40 mg Documented by: Heparin Sodium (Porcine) (Heparin 5,000 Unit/1 Ml Vial) 5,000 unit SUB-Q Q8HR [facility] Last Admin: 04/07/21 05:28 Dose: 5,000 unit Documented by: Hydralazine HCl (Hydralazine 20 Mg/1 Ml Inj) 10 mg IV Q6H PRN PRN Reason: Blood Pressure Last Admin: 04/07/21 05:28 Dose: 10 mg Documented by: Lisinopril (Lisinopril 20 Mg Tab) 20 mg PO QDAY [facility] Last Admin: 04/07/21 09:23 Dose: 20 mg Documented by: Metoprolol Tartrate (Metoprolol Tartrate 25 Mg Tab) 25 mg PO BID@0800,1700 [facility] Last Admin: 04/07/21 08:23 Dose: 25 mg Documented by: Morphine Sulfate (Morphine 2 Mg/1 Ml Inj) 2 mg IV Q5MIN PRN PRN Reason: Chest Pain unrelieved by NTG Last Admin: 04/07/21 07:21 Dose: 2 mg Documented by: Nitroglycerin (Nitroglycerin 0.4 Mg Tab Subl) 0.4 mg SL .Q5MIN PRN PRN Reason: Chest Pain Nystatin (Nystatin 500,000 Unit/5 Ml Oral Liqd) 500,000 unit PO TID [facility] Last Admin: 04/07/21 08:24 Dose: 500,000 unit Documented by: Pantoprazole Sodium (Pantoprazole 40 Mg Tab) 40 mg PO DAILY [facility] Last Admin: 04/07/21 09:24 Dose: 40 mg Documented by: Sucralfate (Sucralfate 1 Gm Tab) 1 gm PO ACHS [facility] Last Admin: 04/07/21 07:22 Dose: 1 gm Documented by: I HAVE REVIEWED/RECONCILED MEDICATIONS Review of Systems - Review of Systems All systems: negative (as noted in the HPI.) Exam - Constitutional Vital Signs: Temp Pulse Resp BP Pulse Ox 100.8 F H 101 H 20 137/62 96 04/07/21 07:23 04/07/21 09:23 04/07/21 08:19 04/07/21 09:23 04/07/21 08:21 General appearance: mild distress - EENT Eyes: PERRL, EOM intact ENT: hearing intact, clear oral mucosa, dentition normal - Neck Neck: supple, normal ROM - Respiratory Respiratory effort: normal Respiratory: bilateral: CTA - Cardiovascular Rhythm: regular Heart Sounds: Present: S1 & S2, systolic murmur Extremities: no ischemia, No edema - Gastrointestinal General gastrointestinal: Present: soft, tender (Focal in RUQ and no guard), non-distended - Integumentary Integumentary: Present: clear, warm, dry - Neurologic Neurological: alert and oriented x3 - Labs CBC & Chem 7: 04/06/21 20:10 04/06/21 20:10 Lab Results: Laboratory Results - last 24 hr 04/06/21 04/06/21 04/07/21 20:10 20:10 06:18 WBC 8.9 RBC 3.38 L Hgb 11.0 Hct 33.2 MCV 98 H MCH 32 MCHC 33 RDW 15.0 Plt Count 442 H Lymph % (Auto) 21.9 [place] % (Auto) 12.7 H Eos % (Auto) 3.4 Baso % (Auto) 0.7 Lymph # (Auto) 1.9 [place] # (Auto) 1.1 H Eos # (Auto) 0.3 Baso # (Auto) 0.1 Seg Neutrophils % 61.3 Seg Neutrophils # 5.4 Sodium 141 Potassium 3.2 L Chloride 99.9 Carbon Dioxide 27 Anion Gap 17 BUN 14 Creatinine 1.0 Estimated GFR > 60 BUN/Creatinine Ratio 14 Glucose 110 H Calcium 8.7 Total Bilirubin 0.50 AST 22 ALT 21 Alkaline Phosphatase 102 Troponin T 0.010 NT-Pro-B Natriuret Pep 4589 H Total Protein 7.7 Albumin 4.0 Albumin/Globulin Ratio 1.1 Lipase 30 Urine Color Colorless Urine Turbidity Clear Urine pH 6.0 Ur Specific [place] 1.006 Urine Protein <15 mg/dl Urine Glucose (UA) Neg Urine Ketones Neg Urine Blood Neg Urine Nitrite Neg Urine Bilirubin Neg Urine Urobilinogen < 2.0 Ur Leukocyte Esterase Neg Urine WBC (Auto) < 1.0 Urine RBC (Auto) 1.0 U Epithel Cells (Auto) 1.0 Urine Bacteria (Auto) 1+ Assessment and Plan - Patient Problems (1) RUQ abdominal pain Current Visit: Yes Status: Acute Plan to address problem: - CT/UGI (-) last admit and labs unremarkable. US did show sludge. - Will get a HIDA scan. - Unclear that this is related to CHF, but does have R-sided cardiac HTN, which can cause RUQ pain (though LFTs are normal). - Continue protonix PO therapy.
[2021-04-07] MEDS: CITALOPRAM 10 MG TAB PO SCH (10:54)
[2021-04-07] MEDS ORDERED: POTASSIUM CHLORIDE ER 20 MEQ TAB PO NR (15:21)
[2021-04-08 05:15] LABS: BUN/Creatinine Ratio 15; Blood Urea Nitrogen 15 mg/dL (7-17); Calcium 8.3 mg/dL (8.4-10.2); Hemolysis Index 110
[2021-04-08] MEDS: IPRATROPIUM/ALBUTEROL SULFATE 3 ML AMPUL.NEB IH SCH ×5 (05:39→21:05)
[2021-04-08] MEDS: HEPARIN 5,000 UNIT/1 ML VIAL SUB-Q SCH ×3 (05:41→21:00)
[2021-04-08] MEDS: FUROSEMIDE 40 MG/4 ML INJ IV SCH ×2 (05:41→18:04)
[2021-04-08] MEDS: ARFORMOTEROL 15 MCG/2 ML NEBU IH SCH ×3 (08:51→20:02)
--- NOTE | 2021-04-08 10:46 | Nuclear Medicine Report ---
NUCLEAR MEDICINE HEPATOBILIARY SCAN INDICATION / CLINICAL INFORMATION: RUQ PAIN. TECHNIQUE: Radiotracer: Tc-99m mebrofenin (by IV): 5.5 mCi. Gallbladder Stimulant: Ensure (8 ounces by mouth) COMPARISON: None available. FINDINGS: HEPATIC ACTIVITY: Normal. BILIARY ACTIVITY: Normal. GALLBLADDER ACTIVITY: Normal SMALL BOWEL ACTIVITY: Normal GALLBLADDER EJECTION FRACTION % (if calculated): 72% - Normal at 30 min with Cholecystokinin: >35% - Normal at 60 min with Ensure/Glucerna: >33% PATIENT SYMPTOM REPRODUCTION: No symptoms reported.. IMPRESSION: 1. Biliary obstruction: None. 2. Gallbladder ejection fraction: Normal. Signer Name: Landon Blount MD Signed: 04/08/2021 10:42 AM Workstation Name: [id number]
[2021-04-08] MEDS: NYSTATIN 500,000 UNIT/5 ML ORAL LIQD PO SCH ×3 (11:07→20:59)
[2021-04-08] MEDS: METOPROLOL TARTRATE 25 MG TAB PO SCH ×2 (11:08→18:03)
[2021-04-08] MEDS: CITALOPRAM 10 MG TAB PO SCH (11:08)
[2021-04-08] MEDS: PANTOPRAZOLE 40 MG TAB PO SCH (11:08)
[2021-04-08] MEDS: CLOPIDOGREL 75 MG TAB PO SCH (11:08)
[2021-04-08] MEDS: ASPIRIN 325 MG TAB PO SCH (11:08)
[2021-04-08] MEDS: amLODIPine 10 MG TAB PO SCH (11:09)
[2021-04-08] MEDS: LISINOPRIL 20 MG TAB PO SCH (11:16)
[2021-04-08 12:30] LABS: Basophils # (Auto) 0.1 K/mm3 (0.0-0.1); Basophils % (Auto) 0.7 % (0.0-1.8); Eosinophils # (Auto) 0.2 K/mm3 (0.0-0.4); Eosinophils % (Auto) 1.6 % (0.0-4.3); Hematocrit 30.1 % (30.3-42.9); Hemoglobin 10.2 gm/dl (10.1-14.3); Lymphocytes # (Auto) 1.5 K/mm3 (1.2-5.4); Lymphocytes % (Auto) 15.4 % (13.4-35.0); Mean Corpuscular HGB Conc 34 % (30-34); Mean Corpuscular Volume 98 fl (79-97); Monocytes # (Auto) 1.2 K/mm3 (0.0-0.8); Monocytes % (Auto) 12.9 % (0.0-7.3); Platelet Count 358 K/mm3 (140-440); Red Blood Count 3.08 M/mm3 (3.65-5.03)
--- NOTE | 2021-04-08 14:05 | Progress Note ---
Assessment and Plan - Patient Problems (1) Shortness of breath Current Visit: Yes Status: Acute Plan to address problem: Patient presents with right upper quadrant pain, undergoing work-up by gastroenterology. She also has chronic shortness of breath due to underlying chronic lung disease. Cardiac status is stable and asymptomatic. (2) Coronary artery disease Current Visit: Yes Status: Acute Plan to address problem: We will continue guideline directed medical therapy for patient's asymptomatic coronary artery disease. Subjective Date of service: 04/08/21 Interval history: Patient is comfortable, no chest pain, no new cardiac complaints. Objective Vital Signs Temp Pulse Pulse Pulse Resp Resp BP 04/08/21 11:58 04/08/21 11:51 98.2 F 16 128/62 04/08/21 11:28 79 18 04/08/21 11:16 79 129/64 04/08/21 11:09 79 129/64 04/08/21 11:08 79 129/64 04/08/21 11:06 129/64 04/08/21 07:46 99.2 F 85 16 135/63 04/08/21 07:00 72 04/08/21 04:13 98.4 F 58 L 04/07/21 23:54 98.6 F 68 04/07/21 23:33 70 04/07/21 22:00 04/07/21 20:51 04/07/21 20:50 74 20 04/07/21 19:23 98.9 F 74 18 128/50 04/07/21 17:27 86 142/66 04/07/21 15:31 100.5 F H 82 20 106/47 BP Pulse Ox 04/08/21 11:58 94 04/08/21 11:51 04/08/21 11:28 96 04/08/21 11:16 04/08/21 11:09 04/08/21 11:08 04/08/21 11:06 04/08/21 07:46 90 04/08/21 07:00 04/08/21 04:13 121/68 04/07/21 23:54 110/68 04/07/21 23:33 04/07/21 22:00 96 04/07/21 20:51 94 04/07/21 20:50 04/07/21 19:23 89 04/07/21 17:27 04/07/21 15:31 90 - Physical Examination General: No Apparent Distress HEENT: Positive: PERRL Neck: Positive: trachea midline Cardiac: Positive: Reg Rate and Rhythm Lungs: Positive: Decreased Breath Sounds Neuro: Positive: Grossly Intact Abdomen: Positive: Soft Skin: Positive: Clear Extremities: Absent: edema - Labs and Meds CBC 04/08/21 Range/Units 11:55 WBC 9.7 (4.5-11.0) K/mm3 RBC 3.08 L (3.65-5.03) M/mm3 Hgb 10.2 (10.1-14.3) gm/dl Hct 30.1 L (30.3-42.9) % Plt Count 358 (140-440) K/mm3 Lymph # (Auto) 1.5 (1.2-5.4) K/mm3 [place] # (Auto) 1.2 H (0.0-0.8) K/mm3 Eos # (Auto) 0.2 (0.0-0.4) K/mm3 Baso # (Auto) 0.1 (0.0-0.1) K/mm3 Comprehensive Metabolic Panel 04/08/21 Range/Units 04:42 Sodium 140 (137-145) mmol/L Potassium 4.2 D (3.6-5.0) mmol/L Chloride 98.8 (98-107) mmol/L Carbon Dioxide 31 H (22-30) mmol/L BUN 15 (7-17) mg/dL Creatinine 1.0 (0.6-1.2) mg/dL Glucose 89 (65-100) mg/dL Calcium 8.3 L (8.4-10.2) mg/dL
--- NOTE | 2021-04-08 17:09 | Gastroenterology Progress Note ---
Assessment and Plan - Patient Problems (1) RUQ abdominal pain Current Visit: Yes Status: Acute Plan to address problem: - CT/UGI (-) last admit and labs unremarkable. US did show sludge. - HIDA this admit WNL, and no exacerbation of the pain with meal challenge. - Unclear that this is related to CHF, but does have R-sided cardiac HTN, which can cause RUQ pain (though LFTs are normal). - Continue protonix PO therapy; will add QID dicyclomine. Subjective Date of service: 04/08/21 Principal diagnosis: RUQ Abdominal Pain Interval history: The patient's HIDA scan was WNL. She ate her cardiac diet, with intermittent flares of pain, but no N/V/blood in stools. Objective - Constitutional Vitals: Temp Pulse Resp BP Pulse Ox 99.0 F 65 20 115/58 91 04/08/21 15:39 04/08/21 16:38 04/08/21 16:38 04/08/21 15:39 04/08/21 15:39 General appearance: no acute distress - Respiratory Respiratory effort: normal Respiratory: bilateral: CTA - Cardiovascular Rhythm: regular Heart Sounds: Present: S1 & S2 - Gastrointestinal General gastrointestinal: Present: soft, non-tender, non-distended - Labs CBC & Chem 7: 04/08/21 11:55 04/08/21 04:42 Labs: Laboratory Results - last 24 hr 04/08/21 04/08/21 04:42 11:55 WBC 9.7 RBC 3.08 L Hgb 10.2 Hct 30.1 L MCV 98 H MCH 33 H MCHC 34 RDW 15.0 Plt Count 358 Lymph % (Auto) 15.4 [place] % (Auto) 12.9 H Eos % (Auto) 1.6 Baso % (Auto) 0.7 Lymph # (Auto) 1.5 [place] # (Auto) 1.2 H Eos # (Auto) 0.2 Baso # (Auto) 0.1 Seg Neutrophils % 69.4 Seg Neutrophils # 6.7 Sodium 140 Potassium 4.2 D Chloride 98.8 Carbon Dioxide 31 H Anion Gap 14 BUN 15 Creatinine 1.0 Estimated GFR > 60 BUN/Creatinine Ratio 15 Glucose 89 Calcium 8.3 L
[2021-04-08] MEDS: DICYCLOMINE 10 MG CAP PO SCH ×2 (18:04→21:00)
--- NOTE | 2021-04-08 18:10 | Progress Note ---
Hospitalist Physical - Constitutional Vitals: Temp Pulse Resp BP Pulse Ox 99.0 F 83 20 120/57 91 04/08/21 15:39 04/08/21 18:03 04/08/21 16:38 04/08/21 18:03 04/08/21 15:39 General appearance: Present: no acute distress HEART Score - HEART Score Troponin: Troponin T 0.010 ng/mL (0.00-0.029) 04/06/21 20:10 Results - Labs CBC & Chem 7: 04/08/21 11:55 04/08/21 04:42 Labs: Laboratory Last Values WBC 9.7 K/mm3 (4.5-11.0) 04/08/21 11:55 RBC 3.08 M/mm3 (3.65-5.03) L 04/08/21 11:55 Hgb 10.2 gm/dl (10.1-14.3) 04/08/21 11:55 Hct 30.1 % (30.3-42.9) L 04/08/21 11:55 MCV 98 fl (79-97) H 04/08/21 11:55 MCH 33 pg (28-32) H 04/08/21 11:55 MCHC 34 % (30-34) 04/08/21 11:55 RDW 15.0 % (13.2-15.2) 04/08/21 11:55 Plt Count 358 K/mm3 (140-440) 04/08/21 11:55 Lymph % (Auto) 15.4 % (13.4-35.0) 04/08/21 11:55 [place] % (Auto) 12.9 % (0.0-7.3) H 04/08/21 11:55 Eos % (Auto) 1.6 % (0.0-4.3) 04/08/21 11:55 Baso % (Auto) 0.7 % (0.0-1.8) 04/08/21 11:55 Lymph # (Auto) 1.5 K/mm3 (1.2-5.4) 04/08/21 11:55 [place] # (Auto) 1.2 K/mm3 (0.0-0.8) H 04/08/21 11:55 Eos # (Auto) 0.2 K/mm3 (0.0-0.4) 04/08/21 11:55 Baso # (Auto) 0.1 K/mm3 (0.0-0.1) 04/08/21 11:55 Seg Neutrophils % 69.4 % (40.0-70.0) 04/08/21 11:55 Seg Neutrophils # 6.7 K/mm3 (1.8-7.7) 04/08/21 11:55 Sodium 140 mmol/L (137-145) 04/08/21 04:42 Potassium 4.2 mmol/L (3.6-5.0) D 04/08/21 04:42 Chloride 98.8 mmol/L (98-107) 04/08/21 04:42 Carbon Dioxide 31 mmol/L (22-30) H 04/08/21 04:42 Anion Gap 14 mmol/L 04/08/21 04:42 BUN 15 mg/dL (7-17) 04/08/21 04:42 Creatinine 1.0 mg/dL (0.6-1.2) 04/08/21 04:42 Estimated GFR > 60 ml/min 04/08/21 04:42 BUN/Creatinine Ratio 15 % 04/08/21 04:42 Glucose 89 mg/dL (65-100) 04/08/21 04:42 Calcium 8.3 mg/dL (8.4-10.2) L 04/08/21 04:42 Total Bilirubin 0.50 mg/dL (0.1-1.2) 04/06/21 20:10 AST 22 units/L (5-40) 04/06/21 20:10 ALT 21 units/L (7-56) 04/06/21 20:10 Alkaline Phosphatase 102 units/L (35-129) 04/06/21 20:10 Troponin T 0.010 ng/mL (0.00-0.029) 04/06/21 20:10 NT-Pro-B Natriuret Pep 4589 pg/mL (0-900) H 04/06/21 20:10 Total Protein 7.7 g/dL (6.3-8.2) 04/06/21 20:10 Albumin 4.0 g/dL (3.9-5) 04/06/21 20:10 Albumin/Globulin Ratio 1.1 % 04/06/21 20:10 Lipase 30 units/L (13-60) 04/06/21 20:10 Urine Color Colorless (Yellow) 04/07/21 06:18 Urine Turbidity Clear (Clear) 04/07/21 06:18 Urine pH 6.0 (5.0-7.0) 04/07/21 06:18 Ur Specific [place] 1.006 (1.003-1.030) 04/07/21 06:18 Urine Protein <15 mg/dl mg/dL (Negative) 04/07/21 06:18 Urine Glucose (UA) Neg mg/dL (Negative) 04/07/21 06:18 Urine Ketones Neg mg/dL (Negative) 04/07/21 06:18 Urine Blood Neg (Negative) 04/07/21 06:18 Urine Nitrite Neg (Negative) 04/07/21 06:18 Urine Bilirubin Neg (Negative) 04/07/21 06:18 Urine Urobilinogen < 2.0 mg/dL (<2.0) 04/07/21 06:18 Ur Leukocyte Esterase Neg (Negative) 04/07/21 06:18 Urine WBC (Auto) < 1.0 /HPF (0.0-6.0) 04/07/21 06:18 Urine RBC (Auto) 1.0 /HPF (0.0-6.0) 04/07/21 06:18 U Epithel Cells (Auto) 1.0 /HPF (0-13.0) 04/07/21 06:18 Urine Bacteria (Auto) 1+ /HPF (Negative) 04/07/21 06:18 No/IV: Voiding Method Bedside Commode Active Medications - Current Medications Current Medications: Generic Name Dose Route Start Last Admin Trade Name Freq PRN Reason Stop Dose Admin Albuterol/Ipratropium 1 ampul 04/07/21 06:00 04/08/21 16:23 Ipratropium/Albuterol Sulfate 3 Ml Ampul.Neb IH 1 ampul Q6HR JELLY Administration Amlodipine Besylate 10 mg 04/07/21 10:00 04/08/21 11:09 Amlodipine 10 Mg Tab PO 10 mg QDAY JELLY Administration Arformoterol Tartrate 15 mcg 04/07/21 08:00 04/08/21 11:47 Arformoterol 15 Mcg/2 Ml Nebu IH 15 mcg Q12HRT [facility] Administration Aspirin 325 mg 04/07/21 10:00 04/08/21 11:08 Aspirin 325 Mg Tab PO 325 mg QDAY [facility] Administration Atorvastatin Calcium 20 mg 04/07/21 22:00 04/07/21 21:31 Atorvastatin 20 Mg Tab PO 20 mg QHS JELLY Administration Citalopram Hydrobromide 10 mg 04/07/21 10:00 04/08/21 11:08 Citalopram 10 Mg Tab PO 10 mg DAILY [facility] Administration Clopidogrel Bisulfate 75 mg 04/07/21 10:00 04/08/21 11:08 Clopidogrel 75 Mg Tab PO 75 mg QDAY [facility] Administration Dicyclomine HCl 10 mg 04/08/21 18:00 04/08/21 18:04 Dicyclomine 10 Mg Cap PO 10 mg QID JELLY Administration Furosemide 40 mg 04/07/21 06:00 04/08/21 18:04 Furosemide 40 Mg/4 Ml Inj IV 40 mg BID@0600,1800 [facility] Administration Heparin Sodium (Porcine) 5,000 unit 04/07/21 06:00 04/08/21 14:44 Heparin 5,000 Unit/1 Ml Vial SUB-Q 5,000 unit Q8HR [facility] Administration Hydralazine HCl 10 mg 04/07/21 02:05 04/07/21 05:28 Hydralazine 20 Mg/1 Ml Inj IV 10 mg Q6H PRN Administration Blood Pressure Lisinopril 20 mg 04/07/21 10:00 04/08/21 11:16 Lisinopril 20 Mg Tab PO 20 mg QDAY [facility] Administration Metoprolol Tartrate 25 mg 04/07/21 08:00 04/08/21 18:03 Metoprolol Tartrate 25 Mg Tab PO 25 mg BID@0800,1700 [facility] Administration Morphine Sulfate 2 mg 04/07/21 01:58 04/07/21 07:21 Morphine 2 Mg/1 Ml Inj IV 2 mg Q5MIN PRN Administration Chest Pain unrelieved by NTG Nitroglycerin 0.4 mg 04/07/21 01:58 Nitroglycerin 0.4 Mg Tab Subl SL .Q5MIN PRN Chest Pain Nystatin 500,000 unit 04/07/21 08:00 04/08/21 14:44 Nystatin 500,000 Unit/5 Ml Oral Liqd PO 500,000 unit TID [facility] Administration Pantoprazole Sodium 40 mg 04/07/21 10:00 04/08/21 11:08 Pantoprazole 40 Mg Tab PO 40 mg DAILY JELLY Administration
[2021-04-09] MEDS: HEPARIN 5,000 UNIT/1 ML VIAL SUB-Q SCH ×3 (05:41→21:31)
[2021-04-09] MEDS: FUROSEMIDE 40 MG/4 ML INJ IV SCH ×2 (05:41→16:59)
[2021-04-09] MEDS: IPRATROPIUM/ALBUTEROL SULFATE 3 ML AMPUL.NEB IH SCH ×4 (05:41→19:56)
[2021-04-09] MEDS: ARFORMOTEROL 15 MCG/2 ML NEBU IH SCH ×2 (07:46→19:56)
[2021-04-09] MEDS ORDERED: ALBUTEROL 2.5 MG/3 ML NEBU IH PRN (09:30)
[2021-04-09] MEDS: LISINOPRIL 20 MG TAB PO SCH (09:37)
[2021-04-09] MEDS: NYSTATIN 500,000 UNIT/5 ML ORAL LIQD PO SCH ×3 (09:37→19:40)
[2021-04-09] MEDS: METOPROLOL TARTRATE 25 MG TAB PO SCH ×2 (09:37→16:57)
[2021-04-09] MEDS: DICYCLOMINE 10 MG CAP PO SCH ×4 (09:38→21:31)
[2021-04-09] MEDS: amLODIPine 10 MG TAB PO SCH (09:38)
[2021-04-09] MEDS: PANTOPRAZOLE 40 MG TAB PO SCH (09:38)
[2021-04-09] MEDS: ASPIRIN 325 MG TAB PO SCH (09:38)
[2021-04-09] MEDS: CITALOPRAM 10 MG TAB PO SCH (09:38)
[2021-04-09] MEDS: CLOPIDOGREL 75 MG TAB PO SCH (09:38)
--- NOTE | 2021-04-09 13:35 | Progress Note ---
Assessment and Plan - Patient Problems (1) Shortness of breath Current Visit: Yes Status: Acute Plan to address problem: Recommend pulmonary evaluation and management of the patient's shortness of breath, chronic lung disease and oxygen requirements. (2) Coronary artery disease Current Visit: Yes Status: Acute Plan to address problem: Patient has a history of two-vessel coronary artery disease followed by remote stenting, no chest pain and no active cardiac complaints, continue guideline directed medical therapy for coronary artery disease. Subjective Date of service: 04/09/21 Principal diagnosis: RUQ Abdominal Pain Interval history: Patient complains of continued oxygen desaturation, being oxygen dependent. Despite her O2 desaturation, she is able to lay flat without orthopnea. There is no lower extremity edema. Her O2 desaturation and shortness of breath is likely related to her chronic pulmonary disease. Objective Vital Signs Temp Pulse Pulse Pulse Resp Resp BP 04/09/21 11:00 76 18 04/09/21 09:38 77 122/54 04/09/21 09:37 77 122/54 04/09/21 09:35 97.9 F 78 18 122/54 04/09/21 07:50 04/09/21 07:46 78 16 04/09/21 07:45 04/09/21 06:55 70 04/09/21 04:57 98.4 F 72 22 117/48 04/09/21 00:14 98.4 F 70 22 116/54 04/08/21 23:00 66 79 18 04/08/21 22:00 65 20 04/08/21 20:11 99.7 F H 74 22 117/63 04/08/21 18:06 82 120/57 04/08/21 18:03 83 120/57 04/08/21 16:38 65 20 04/08/21 15:39 99.0 F 77 18 115/58 Pulse Ox 04/09/21 11:00 96 04/09/21 09:38 04/09/21 09:37 04/09/21 09:35 92 04/09/21 07:50 94 04/09/21 07:46 04/09/21 07:45 94 04/09/21 06:55 04/09/21 04:57 91 04/09/21 00:14 89 04/08/21 23:00 96 04/08/21 22:00 04/08/21 20:11 93 07/15/21 18:06 92 04/08/21 18:03 04/08/21 16:38 04/08/21 15:39 91 - Physical Examination General: No Apparent Distress HEENT: Positive: PERRL Neck: Positive: trachea midline Cardiac: Positive: Reg Rate and Rhythm Lungs: Positive: Decreased Breath Sounds Neuro: Positive: Grossly Intact Abdomen: Positive: Soft Skin: Positive: Clear Extremities: Absent: edema
--- NOTE | 2021-04-09 13:50 | Gastroenterology Progress Note ---
Assessment and Plan - Patient Problems (1) RUQ abdominal pain Current Visit: Yes Status: Acute Plan to address problem: - CT/UGI (-) last admit and labs unremarkable. US did show sludge. - HIDA this admit WNL, and no exacerbation of the pain with meal challenge. - Unclear that this is related to CHF, but does have R-sided cardiac HTN, which can cause RUQ pain (though LFTs are normal). - Agree with Cards recs for Pulmonary consult given low O2 but well-controlled CHF. - Continue protonix PO therapy; will continue QID dicyclomine. - No further recs at present. We will sign off; please call if needed. Subjective Date of service: 04/09/21 Principal diagnosis: RUQ Abdominal Pain Interval history: The patient has had no complication from dicyclomine, and has no N/V/loss of appetite. She is tolerating a regular diet. Primary complaint continues to be shortness of breath. Objective - Constitutional Vitals: Temp Pulse Resp BP Pulse Ox 97.9 F 76 18 122/54 96 04/09/21 09:35 04/09/21 11:00 04/09/21 11:00 04/09/21 09:38 04/09/21 11:00 General appearance: no acute distress - Respiratory Respiratory effort: normal Respiratory: bilateral: CTA - Cardiovascular Rhythm: regular Heart Sounds: Present: S1 & S2 - Gastrointestinal General gastrointestinal: Present: soft, non-tender, non-distended - Labs CBC & Chem 7: 04/08/21 11:55 04/08/21 04:42
--- NOTE | 2021-04-09 17:03 | Progress Note ---
Hospitalist Physical - Constitutional Vitals: Temp Pulse Resp BP Pulse Ox 97.9 F 80 19 127/56 94 04/09/21 16:46 04/09/21 16:57 04/09/21 16:46 04/09/21 16:57 04/09/21 16:46 General appearance: Present: no acute distress HEART Score - HEART Score Troponin: Troponin T 0.010 ng/mL (0.00-0.029) 04/06/21 20:10 Results - Labs CBC & Chem 7: 04/08/21 11:55 04/08/21 04:42 Labs: Laboratory Last Values WBC 9.7 K/mm3 (4.5-11.0) 04/08/21 11:55 RBC 3.08 M/mm3 (3.65-5.03) L 04/08/21 11:55 Hgb 10.2 gm/dl (10.1-14.3) 04/08/21 11:55 Hct 30.1 % (30.3-42.9) L 04/08/21 11:55 MCV 98 fl (79-97) H 04/08/21 11:55 MCH 33 pg (28-32) H 04/08/21 11:55 MCHC 34 % (30-34) 04/08/21 11:55 RDW 15.0 % (13.2-15.2) 04/08/21 11:55 Plt Count 358 K/mm3 (140-440) 04/08/21 11:55 Lymph % (Auto) 15.4 % (13.4-35.0) 04/08/21 11:55 [place] % (Auto) 12.9 % (0.0-7.3) H 04/08/21 11:55 Eos % (Auto) 1.6 % (0.0-4.3) 04/08/21 11:55 Baso % (Auto) 0.7 % (0.0-1.8) 04/08/21 11:55 Lymph # (Auto) 1.5 K/mm3 (1.2-5.4) 04/08/21 11:55 [place] # (Auto) 1.2 K/mm3 (0.0-0.8) H 04/08/21 11:55 Eos # (Auto) 0.2 K/mm3 (0.0-0.4) 04/08/21 11:55 Baso # (Auto) 0.1 K/mm3 (0.0-0.1) 04/08/21 11:55 Seg Neutrophils % 69.4 % (40.0-70.0) 04/08/21 11:55 Seg Neutrophils # 6.7 K/mm3 (1.8-7.7) 04/08/21 11:55 Sodium 140 mmol/L (137-145) 04/08/21 04:42 Potassium 4.2 mmol/L (3.6-5.0) D 04/08/21 04:42 Chloride 98.8 mmol/L (98-107) 04/08/21 04:42 Carbon Dioxide 31 mmol/L (22-30) H 04/08/21 04:42 Anion Gap 14 mmol/L 04/08/21 04:42 BUN 15 mg/dL (7-17) 04/08/21 04:42 Creatinine 1.0 mg/dL (0.6-1.2) 04/08/21 04:42 Estimated GFR > 60 ml/min 04/08/21 04:42 BUN/Creatinine Ratio 15 % 04/08/21 04:42 Glucose 89 mg/dL (65-100) 04/08/21 04:42 Calcium 8.3 mg/dL (8.4-10.2) L 04/08/21 04:42 Total Bilirubin 0.50 mg/dL (0.1-1.2) 04/06/21 20:10 AST 22 units/L (5-40) 04/06/21 20:10 ALT 21 units/L (7-56) 04/06/21 20:10 Alkaline Phosphatase 102 units/L (35-129) 04/06/21 20:10 Troponin T 0.010 ng/mL (0.00-0.029) 04/06/21 20:10 NT-Pro-B Natriuret Pep 4589 pg/mL (0-900) H 04/06/21 20:10 Total Protein 7.7 g/dL (6.3-8.2) 04/06/21 20:10 Albumin 4.0 g/dL (3.9-5) 04/06/21 20:10 Albumin/Globulin Ratio 1.1 % 04/06/21 20:10 Lipase 30 units/L (13-60) 04/06/21 20:10 Urine Color Colorless (Yellow) 04/07/21 06:18 Urine Turbidity Clear (Clear) 04/07/21 06:18 Urine pH 6.0 (5.0-7.0) 04/07/21 06:18 Ur Specific [place] 1.006 (1.003-1.030) 04/07/21 06:18 Urine Protein <15 mg/dl mg/dL (Negative) 04/07/21 06:18 Urine Glucose (UA) Neg mg/dL (Negative) 04/07/21 06:18 Urine Ketones Neg mg/dL (Negative) 04/07/21 06:18 Urine Blood Neg (Negative) 04/07/21 06:18 Urine Nitrite Neg (Negative) 04/07/21 06:18 Urine Bilirubin Neg (Negative) 04/07/21 06:18 Urine Urobilinogen < 2.0 mg/dL (<2.0) 04/07/21 06:18 Ur Leukocyte Esterase Neg (Negative) 04/07/21 06:18 Urine WBC (Auto) < 1.0 /HPF (0.0-6.0) 04/07/21 06:18 Urine RBC (Auto) 1.0 /HPF (0.0-6.0) 04/07/21 06:18 U Epithel Cells (Auto) 1.0 /HPF (0-13.0) 04/07/21 06:18 Urine Bacteria (Auto) 1+ /HPF (Negative) 04/07/21 06:18 No/IV: Voiding Method Bedside Commode Active Medications - Current Medications Current Medications: Generic Name Dose Route Start Last Admin Trade Name Freq PRN Reason Stop Dose Admin Albuterol 2.5 mg 04/09/21 09:30 Albuterol 2.5 Mg/3 Ml Nebu IH Q4HRT PRN Shortness Of Breath Albuterol/Ipratropium 1 ampul 04/09/21 14:00 04/09/21 14:03 Ipratropium/Albuterol Sulfate 3 Ml Ampul.Neb IH 1 ampul TIDRT JELLY Administration Amlodipine Besylate 10 mg 04/07/21 10:00 04/09/21 09:38 Amlodipine 10 Mg Tab PO 10 mg QDAY JELLY Administration Arformoterol Tartrate 15 mcg 04/09/21 20:00 Arformoterol 15 Mcg/2 Ml Nebu Q12HRT COUNT INCLUDES THE [facility] Aspirin 325 mg 04/07/21 10:00 04/09/21 09:38 Aspirin 325 Mg Tab PO 325 mg QDAY COUNT INCLUDES THE [facility] Administration Atorvastatin Calcium 20 mg 04/07/21 22:00 04/08/21 21:00 Atorvastatin 20 Mg Tab PO 20 mg QHS COUNT INCLUDES THE [facility] Administration Budesonide 0.5 mg 04/09/21 20:00 Budesonide 0.5 Mg/2 Ml [facility] Q12HRT COUNT INCLUDES THE [facility] Citalopram Hydrobromide 10 mg 04/07/21 10:00 04/09/21 09:38 Citalopram 10 Mg Tab PO 10 mg DAILY COUNT INCLUDES THE [facility] Administration Clopidogrel Bisulfate 75 mg 04/07/21 10:00 04/09/21 09:38 Clopidogrel 75 Mg Tab PO 75 mg QDAY COUNT INCLUDES THE [facility] Administration Dicyclomine HCl 10 mg 04/08/21 18:00 04/09/21 16:59 Dicyclomine 10 Mg Cap PO 10 mg QID COUNT INCLUDES THE [facility] Administration Furosemide 40 mg 04/07/21 06:00 04/09/21 16:59 Furosemide 40 Mg/4 Ml Inj IV 40 mg BID@0600,1800 COUNT INCLUDES THE [facility] Administration Heparin Sodium (Porcine) 5,000 unit 04/07/21 06:00 04/09/21 13:12 Heparin 5,000 Unit/1 Ml Vial SUB-Q 5,000 unit Q8HR COUNT INCLUDES THE [facility] Administration Hydralazine HCl 10 mg 04/07/21 02:05 04/07/21 05:28 Hydralazine 20 Mg/1 Ml Inj IV 10 mg Q6H PRN Administration Blood Pressure Lisinopril 20 mg 04/07/21 10:00 04/09/21 09:37 Lisinopril 20 Mg Tab PO 20 mg QDAY COUNT INCLUDES THE [facility] Administration Metoprolol Tartrate 25 mg 04/07/21 08:00 04/09/21 16:57 Metoprolol Tartrate 25 Mg Tab PO 25 mg BID@0800,1700 COUNT INCLUDES THE [facility] Administration Morphine Sulfate 2 mg 04/07/21 01:58 04/07/21 07:21 Morphine 2 Mg/1 Ml Inj IV 2 mg Q5MIN PRN Administration Chest Pain unrelieved by NTG Nitroglycerin 0.4 mg 04/07/21 01:58 Nitroglycerin 0.4 Mg Tab Subl SL .Q5MIN PRN Chest Pain Nystatin 500,000 unit 04/07/21 08:00 04/09/21 13:12 Nystatin 500,000 Unit/5 Ml Oral Liqd PO 500,000 unit TID JELLY Administration Pantoprazole Sodium 40 mg 04/07/21 10:00 04/09/21 09:38 Pantoprazole 40 Mg Tab PO 40 mg DAILY JELLY Administration
[2021-04-09] MEDS: BUDESONIDE 0.5 MG/2 ML NEBU IH SCH (19:56)
[2021-04-10] MEDS: FUROSEMIDE 40 MG/4 ML INJ IV SCH (06:11)
[2021-04-10] MEDS: HEPARIN 5,000 UNIT/1 ML VIAL SUB-Q SCH ×2 (06:11→15:47)
[2021-04-10] MEDS: BUDESONIDE 0.5 MG/2 ML NEBU IH SCH (07:53)
[2021-04-10] MEDS: IPRATROPIUM/ALBUTEROL SULFATE 3 ML AMPUL.NEB IH SCH ×2 (07:53→13:34)
[2021-04-10] MEDS: ARFORMOTEROL 15 MCG/2 ML NEBU IH SCH (07:54)
--- NOTE | 2021-04-10 09:38 | Consultation ---
History of Present Illness Consult date: 04/10/21 Requesting physician: RAVEN DEAN Reason for consult: hypoxemia History of present illness: 89 y/o female, life long nonsmoker, with known CHF and admissions in the past for volume overload and respiratory failure who presented several days ago with epigastric pain. Subsequently patient required 5 liters of oxygen which was up from her 3 liter baseline. She had excessive swelling and felt that she was volume overloaded. She was diuresed and is now back to her baseline flow of 3 liters NC. She has been admitted in the past for similar presentation including the abdominal pain and was seen by Dr. [place]. She has no history to suggest chronic lung disease and as stated earlier is a lifelong nonsmoker. Cardiology asked that pulmonary eval for chronic lung disease and management as they felt her heart failure to be optimized. She is stable this am on 3 liters in no distress. Last CXR was done on admit. Past History Past Medical History: arthritis, CAD, GERD, heart failure, hypertension Past Surgical History: hysterectomy, Other (Cardiac stents) Social history: denies: smoking, alcohol abuse Family history: no significant family history Medications and Allergies Allergies Allergy/AdvReac Type Severity Reaction Status Date / Time No Known Allergies Allergy Verified 08/04/14 12:40 Home Medications Medication Instructions Recorded Confirmed Last Taken Type Aspirin 325 mg PO QDAY #30 tablet 04/08/15 04/09/21 3 Days Ago Rx ~03/02/21 Citalopram [celeXA] 10 mg PO DAILY #30 tablet 04/08/15 04/09/21 3 Days Ago Rx ~03/02/21 Clopidogrel [Plavix] 75 mg PO QDAY #30 tablet 04/08/15 04/09/21 3 Days Ago Rx ~03/02/21 Metoprolol [Lopressor TAB] 25 mg PO BID #60 tablet 04/08/15 04/09/21 3 Days Ago Rx ~03/02/21 amLODIPine 10 mg PO QDAY #30 tablet 04/07/20 04/09/21 3 Days Ago Rx ~03/02/21 Arformoterol Nebu [Brovana Nebu] 15 mcg IH Q12HRT #60 ml 03/10/21 04/09/21 Unknown Rx AtorvaSTATin [Lipitor] 20 mg PO QHS #30 tablet 03/10/21 04/09/21 Unknown Rx Furosemide [Lasix TAB] 20 mg PO QDAY #30 tablet 03/10/21 04/09/21 Unknown Rx Ipratropium/Albuterol Sulfate 1 ampul IH Q6HR #60 ampul.neb 03/10/21 04/09/21 Unknown Rx [DUONEB *Not for PRN Use*] Nebulizer and Compressor [[place] 1 each MC Q6H #1 each 03/10/21 04/09/21 Unknown Rx Choice Nebulizer] Nystatin [Nystatin SUSP] 500,000 unit PO TID #6 udc 03/10/21 04/09/21 Unknown Rx Sucralfate [Carafate] 1 gm PO ACHS #120 tablet 03/10/21 04/09/21 Unknown Rx methylPREDNISolone [Medrol 4MG 4 mg PO DAILY #1 tab.ds.pk 03/10/21 04/09/21 Unknown Rx DOSEPAK (21 tabs)] Omeprazole 40 mg PO DAILY 04/09/21 04/09/21 Unknown History Potassium Chloride [K-Dur] 10 meq PO QDAY 04/09/21 04/09/21 Unknown History Active Meds: Active Medications Albuterol (Albuterol 2.5 Mg/3 Ml Nebu) 2.5 mg IH Q4HRT PRN PRN Reason: Shortness Of Breath Albuterol/Ipratropium (Ipratropium/Albuterol Sulfate 3 Ml Ampul.Neb) 1 ampul IH TIDRT [facility] Last Admin: 04/10/21 07:53 Dose: 1 ampul Documented by: Amlodipine Besylate (Amlodipine 10 Mg Tab) 10 mg PO QDAY [facility] Last Admin: 04/09/21 09:38 Dose: 10 mg Documented by: Arformoterol Tartrate (Arformoterol 15 Mcg/2 Ml Nebu) 15 mcg IH Q12HRT [facility] Last Admin: 04/10/21 07:54 Dose: 15 mcg Documented by: Aspirin (Aspirin 325 Mg Tab) 325 mg PO QDAY [facility] Last Admin: 04/09/21 09:38 Dose: 325 mg Documented by: Atorvastatin Calcium (Atorvastatin 20 Mg Tab) 20 mg PO QHS [facility] Last Admin: 04/09/21 21:31 Dose: 20 mg Documented by: Budesonide (Budesonide 0.5 Mg/2 Ml Nebu) 0.5 mg IH Q12HRT [facility] Last Admin: 04/10/21 07:53 Dose: 0.5 mg Documented by: Citalopram Hydrobromide (Citalopram 10 Mg Tab) 10 mg PO DAILY [facility] Last Admin: 04/09/21 09:38 Dose: 10 mg Documented by: Clopidogrel Bisulfate (Clopidogrel 75 Mg Tab) 75 mg PO QDAY [facility] Last Admin: 04/09/21 09:38 Dose: 75 mg Documented by: Dicyclomine HCl (Dicyclomine 10 Mg Cap) 10 mg PO QID [facility] Last Admin: 04/09/21 21:31 Dose: 10 mg Documented by: Furosemide (Furosemide 40 Mg/4 Ml Inj) 40 mg IV BID@0600,1800 [facility] Last Admin: 04/10/21 06:11 Dose: 40 mg Documented by: Heparin Sodium (Porcine) (Heparin 5,000 Unit/1 Ml Vial) 5,000 unit SUB-Q Q8HR [facility] Last Admin: 04/10/21 06:11 Dose: 5,000 unit Documented by: Hydralazine HCl (Hydralazine 20 Mg/1 Ml Inj) 10 mg IV Q6H PRN PRN Reason: Blood Pressure Last Admin: 04/07/21 05:28 Dose: 10 mg Documented by: Lisinopril (Lisinopril 20 Mg Tab) 20 mg PO QDAY [facility] Last Admin: 04/09/21 09:37 Dose: 20 mg Documented by: Metoprolol Tartrate (Metoprolol Tartrate 25 Mg Tab) 25 mg PO BID@0800,1700 [facility] Last Admin: 04/09/21 16:57 Dose: 25 mg Documented by: Morphine Sulfate (Morphine 2 Mg/1 Ml Inj) 2 mg IV Q5MIN PRN PRN Reason: Chest Pain unrelieved by NTG Last Admin: 04/07/21 07:21 Dose: 2 mg Documented by: Nitroglycerin (Nitroglycerin 0.4 Mg Tab Subl) 0.4 mg SL .Q5MIN PRN PRN Reason: Chest Pain Nystatin (Nystatin 500,000 Unit/5 Ml Oral Liqd) 500,000 unit PO TID [facility] Last Admin: 04/09/21 19:40 Dose: 500,000 unit Documented by: Pantoprazole Sodium (Pantoprazole 40 Mg Tab) 40 mg PO DAILY [facility] Last Admin: 04/09/21 09:38 Dose: 40 mg Documented by: Physical Examination Vital signs: Vital Signs Temp Pulse Resp BP Pulse Ox 98.6 F 78 16 143/67 95 04/06/21 19:56 04/06/21 19:56 04/06/21 19:56 04/06/21 19:56 04/06/21 19:56 General appearance: no acute distress, alert Eyes: non-icteric Neck: supple Effort: normal Ascultation: Bilateral: rales Results - Laboratory Findings CBC and BMP: 04/08/21 11:55 04/08/21 04:42 Abnormal lab findings: Abnormal Labs 04/06/21 04/06/21 04/08/21 20:10 20:10 04:42 RBC 3.38 L Hct MCV 98 H MCH Plt Count 442 H [place] % (Auto) 12.7 H [place] # (Auto) 1.1 H Potassium 3.2 L Carbon Dioxide 31 H Glucose 110 H Calcium 8.3 L NT-Pro-B Natriuret Pep 4589 H 04/08/21 11:55 RBC 3.08 L Hct 30.1 L MCV 98 H MCH 33 H Plt Count [place] % (Auto) 12.9 H [place] # (Auto) 1.2 H Potassium Carbon Dioxide Glucose Calcium NT-Pro-B Natriuret Pep - Diagnostic Findings Chest x-ray: image reviewed Assessment and Plan 89 y/o female with acute on chronic respiratory failure, now resolved with concern for chronic lung disease despite negative smoking history. 1. Will obtain CT of chest to better evaluate the lung parenchyma 2. Patient is on baseline flow and appears to be stable. Not sure if she continues to follow with [place] as I did not ask her. Further work up to evaluate if obstructive lung disease is present would be done as an outpatient. 3. No objection to discharge to home after CT of chest is obtained. She can follow up with myself, Dr. Stevenson or Dr. Weldon in 10-14 days.
[2021-04-10] MEDS: METOPROLOL TARTRATE 25 MG TAB PO SCH (09:40)
[2021-04-10] MEDS: NYSTATIN 500,000 UNIT/5 ML ORAL LIQD PO SCH ×2 (09:41→15:47)
[2021-04-10] MEDS: CITALOPRAM 10 MG TAB PO SCH (09:44)
[2021-04-10] MEDS: DICYCLOMINE 10 MG CAP PO SCH ×2 (09:44→15:47)
[2021-04-10] MEDS: ASPIRIN 325 MG TAB PO SCH (09:45)
[2021-04-10] MEDS: PANTOPRAZOLE 40 MG TAB PO SCH (09:46)
[2021-04-10] MEDS: CLOPIDOGREL 75 MG TAB PO SCH (09:46)
[2021-04-10] MEDS: amLODIPine 10 MG TAB PO SCH (09:46)
[2021-04-10] MEDS: LISINOPRIL 20 MG TAB PO SCH (09:47)
--- NOTE | 2021-04-10 10:19 | Cat Scan Report ---
CT chest wo con INDICATION / CLINICAL INFORMATION: Dyspnea. TECHNIQUE: Routine CT chest without contrast All CT scans at this location are performed using CT dose reduction for ALARA by means of automated exposure control. COMPARISON: None available. FINDINGS: Cardiomegaly with extensive coronary artery calcification. There are streaky perihilar opacities with intermixed was opacity within both lungs suspicious for mixed atelectasis and interstitial edema. Sm all right pleural effusion and tiny left pleural effusion. Review of the upper abdomen demonstrates no acute findings within the limits of noncontrast technique . Review of osseous structures demonstrates thoracolumbar degenerative changes. IMPRESSION: Cardiomegaly with small pleural effusion and mild interstitial edema. Signer Name: Edd Frankel MD Signed: 04/10/2021 10:14 AM Workstation Name: [id number]
--- NOTE | 2021-04-10 13:09 | Progress Note ---
Assessment and Plan - Patient Problems (1) Shortness of breath Current Visit: Yes Status: Acute Plan to address problem: Recommend pulmonary evaluation and management of the patient's shortness of breath, chronic lung disease and increased oxygen requirements. (2) Coronary artery disease Current Visit: Yes Status: Acute Plan to address problem: Patient has a history of two-vessel coronary artery disease followed by remote stenting, no chest pain and no active cardiac complaints, continue guideline directed medical therapy for coronary artery disease. Subjective Date of service: 04/10/21 Principal diagnosis: RUQ Abdominal Pain Interval history: Patient is comfortably laying in bed, supine, no shortness of breath and no orthopnea. Objective Vital Signs Temp Pulse Pulse Resp Resp BP BP 04/10/21 10:42 98.4 F 76 18 132/62 04/10/21 09:47 82 122/55 04/10/21 09:46 82 122/55 04/10/21 09:40 82 122/55 04/10/21 09:11 98.9 F 82 20 122/55 04/10/21 08:05 04/10/21 07:54 70 20 04/10/21 07:00 72 04/10/21 04:46 97.9 F 74 18 128/61 04/10/21 01:11 99.1 F 77 18 122/58 04/09/21 23:00 73 04/09/21 20:27 98.9 F 71 20 119/55 04/09/21 20:01 04/09/21 19:56 65 15 04/09/21 16:57 80 127/56 04/09/21 16:46 97.9 F 80 19 127/56 04/09/21 14:03 70 18 Pulse Ox 04/10/21 10:42 93 04/10/21 09:47 04/10/21 09:46 04/10/21 09:40 04/10/21 09:11 92 04/10/21 08:05 95 04/10/21 07:54 98 04/10/21 07:00 04/10/21 04:46 90 04/10/21 01:11 89 04/09/21 23:00 96 04/09/21 20:27 94 04/09/21 20:01 96 04/09/21 19:56 04/09/21 16:57 04/09/21 16:46 94 04/09/21 14:03 - Physical Examination General: No Apparent Distress HEENT: Positive: PERRL Neck: Positive: trachea midline Cardiac: Positive: Reg Rate and Rhythm Lungs: Positive: Decreased Breath Sounds Neuro: Positive: Grossly Intact Abdomen: Positive: Soft Skin: Positive: Clear Extremities: Absent: edema
[2021-04-10 16:24] VITALS: BP 139/65
--- NOTE | 2021-04-10 17:05 | Discharge Summary ---
Providers - Providers Date of Admission: 04/07/21 16:08 Attending physician: LIDIA DEAN MD 04/07/21 01:58 Consult to Physician [CONS] Routine Comment: Consulting Provider: WALESKA JHA Physician Instructions: Reason For Exam: chf 04/07/21 02:16 Consult to Physician [CONS] Routine Comment: Consulting Provider: JAIME LEE Physician Instructions: Reason For Exam: Abdominal pain 04/09/21 15:00 Consult to Physician [CONS] Routine Comment: Consulting Provider: KAREN MORENO Physician Instructions: Reason For Exam: Hypoxia, worsening dyspnea Primary care physician: DA ORTIZ Hospitalization Condition: Stable Disposition: DC-30 STILL A PATIENT Exam - Constitutional Vitals: Temp Pulse Resp BP Pulse Ox 98.9 F 79 20 139/65 94 04/10/21 16:21 04/10/21 16:21 04/10/21 16:21 04/10/21 16:21 04/10/21 16:21 Plan Activity: advance as tolerated Weight Bearing Status: Weight Bear as Tolerated Diet: low fat, low salt Special Instructions: restrict fluid intake to (40 ounces) Follow up with: DA ORTIZ MD [Primary Care Provider] - 7 Days RANJAN MUELLER MD [Staff Physician] - 14 Days WALESKA JHA MD [Staff Physician] - 14 Days Prescriptions: Dicyclomine [Bentyl] 10 mg PO BID #30 capsule Aspirin EC [Halfprin EC] 81 mg PO QDAY #30 tablet.
== END 2021-04-10 17:46 | disposition home health service (06) | DRG 292 ==
LOC: ED 19:09 → 4A 04-07 00:44 → OBSVTOIN 04-07 16:08
PROVIDERS: ADMIT Hospitalist; ATTEND Internal Medicine
DX: I11.0 Hypertensive heart disease with heart failure (principal); J96.11 Chronic respiratory failure with hypoxia; I50.9 Heart failure, unspecified; E87.6 Hypokalemia; K21.9 Gastro-esophageal reflux disease without esophagitis; I25.10 Atherosclerotic heart disease of native coronary artery without angina pectoris; J44.9 Chronic obstructive pulmonary disease, unspecified; M19.90 Unspecified osteoarthritis, unspecified site; Z99.81 Dependence on supplemental oxygen; Z86.16 Personal history of COVID-19; Z79.899 Other long term (current) drug therapy; Z79.891 Long term (current) use of opiate analgesic; Z79.01 Long term (current) use of anticoagulants; Z79.82 Long term (current) use of aspirin; Z95.5 Presence of coronary angioplasty implant and graft; Z90.710 Acquired absence of both cervix and uterus
CPT/HCPCS: 36415; 71250; 74022; 78226; 80048; 80053; 81001; 83690; 83880; 84484; 85025; 93005; 94640; 96374; G0378; A9270-GY; A9537; J0360; J1644; J1940; J2270